=== PATIENT | male | born 1955 | race Caucasian/White ===

== ENCOUNTER 2016-08-28 10:28 | Emergency (ER) | payer OTHER ==
[2016-08-28] MEDS ORDERED: SODIUM CHLORIDE 0.9% 1,000 ML IV STA (11:29)
--- NOTE | 2016-08-28 11:43 | ED ---
General Adult HPI - General Chief complaint: Back Pain/Injury Stated complaint: back pain,weakness Time Seen by Provider: 08/28/16 11:09 Source: patient, RN notes reviewed, old records reviewed Mode of arrival: ambulatory Limitations: no limitations - History of Present Illness Initial comments: This is a 59-year-old male here for evaluation of back pain. Patient coming in the year with nontraumatic back pain, symptoms on and off for about 3 weeks now , mild nausea no vomiting no loss of bowel or bladder., Patient has no trauma to the area no fevers denies IV drug abuse. Patient does have history of ulcerative colitis and takes no medications. Patient states his back pain is worse when he wakes up in the morning, maybe a little better when he is leaning forward, he also complains of mild weakness to his anterior legs and thighs. No other complaints no rash - Related Data Home Medications Medication Instructions Recorded Confirmed Cholecalciferol [Vitamin D3] 2,000 unit PO DAILY 06/22/16 08/28/16 Ubidecarenone [Co Q-10] 100 mg PO DAILY 08/28/16 08/28/16 Allergies Allergy/AdvReac Type Severity Reaction Status Date / Time erythromycin base AdvReac Severe Nausea, Verified 08/28/16 11:38 Flare up of colitis with blood in stool amoxicillin [From Augmentin] AdvReac Flare up Verified 08/28/16 11:38 of colitis-with blood in stool clavulanic acid AdvReac Flare up Verified 08/28/16 11:38 [From Augmentin] of colitis-with blood in stool NSAIDS (Non-Steroidal AdvReac Flare up Verified 08/28/16 11:38 Anti-Inflamma of colitis-with blood in stool Review of Systems ROS Statement: Those systems with pertinent positive or pertinent negative responses have been documented in the HPI. ROS Other: All systems not noted in ROS Statement are negative. Past Medical History Past Medical History: Asthma, GERD/Reflux Additional Past Medical History / Comment(s): HX OF SHINGLES 2014 , ULCERATIVE PROCTITIS, DIVERTICULOSIS, MIGRAINES., COLITIS AND HE HAS BEEN HAVING BLOOD IN HIS STOOLS. History of Any Multi-Drug Resistant Organisms: None Reported Past Surgical History: Hernia Repair, Orthopedic Surgery Additional Past Surgical History / Comment(s): LEFT KNEE SURGERY LIGAMENT REPAIR , DESTIN ING HERNIAS, COLONOSCOPY'S , BONE SPUR REMOVED FROM RT GREAT TOE, LT ARM MUCSLE BX. COLONOSCOPY Past Anesthesia/Blood Transfusion Reactions: Postoperative Nausea & Vomiting ( PONV) Past Psychological History: No Psychological Hx Reported Smoking Status: Former smoker Past Alcohol Use History: None Reported Additional Past Alcohol Use History / Comment(s): smoked x 30years, quit 1999. Past Drug Use History: None Reported - Past Family History Brother(s) Family Medical History: Cancer Additional Family Medical History / Comment(s): SKIN & PROSTATE CANCER. Father Family Medical History: Dementia Additional Family Medical History / Comment(s): ALZHEIMERS Mother Family Medical History: Congestive Heart Failure (CHF) General Exam - General Exam Comments Initial Comments: No focal neurological deficit, no rash, no vertebral tenderness Limitations: no limitations General appearance: alert, in no apparent distress Head exam: Present: atraumatic, normocephalic, normal inspection Eye exam: Present: normal appearance, PERRL, EOMI. Absent: scleral icterus, conjunctival injection, periorbital swelling ENT exam: Present: normal exam, mucous membranes moist Neck exam: Present: normal inspection. Absent: tenderness, meningismus, lymphadenopathy Respiratory exam: Present: normal lung sounds bilaterally. Absent: respiratory distress, wheezes, rales, rhonchi, stridor Cardiovascular Exam: Present: regular rate, normal rhythm, normal heart sounds. Absent: systolic murmur, diastolic murmur, rubs, gallop, clicks GI/Abdominal exam: Present: soft, normal bowel sounds. Absent: distended, tenderness, guarding, rebound, rigid Extremities exam: Present: normal inspection, full ROM, normal capillary refill. Absent: tenderness, pedal edema, joint swelling, calf tenderness Back exam: Present: normal inspection Neurological exam: Present: alert, oriented X3, CN II-XII intact Psychiatric exam: Present: normal affect, normal mood Skin exam: Present: warm, dry, intact, normal color. Absent: rash Course Vital Signs 08/28/16 11:04 Temperature 98.3 F Pulse Rate 104 H Respiratory 18 Rate Blood Pressure 117/80 O2 Sat by Pulse 95 Oximetry - Reevaluation(s) Reevaluation #1: 08/28/16 13:10 Patient's able to ambulate without any difficulty EKG Findings - EKG Comments: EKG Findings:: EKG shows sinus rhythm rate of 87, OK 180, QRS 80, QTC 423 Medical Decision Making - Medical Decision Making 61 male the ER for evaluation of back pain. His back pain going on for about 3 weeks now, episodic with bilateral thigh weakness. No structural issue frown, no infectious suspicion, patient will follow-up with neurology for further intervention - Lab Data Result diagrams: 08/28/16 11:50 08/28/16 11:50 Lab Results 08/28/16 08/28/16 08/28/16 Range/Units 11:35 11:50 11:50 WBC (3.8-10.6) k/uL RBC (4.30-5.90) m/uL Hgb (13.0-17.5) gm/dL Hct (39.0-53.0) % MCV (80.0-100.0) fL MCH (25.0-35.0) pg MCHC (31.0-37.0) g/dL RDW (11.5-15.5) % Plt Count (150-450) k/uL Neutrophils % % Lymphocytes % % Monocytes % % Eosinophils % % Basophils % % Neutrophils # (1.3-7.7) k/uL Lymphocytes # (1.0-4.8) k/uL Monocytes # (0-1.0) k/uL Eosinophils # (0-0.7) k/uL Basophils # (0-0.2) k/uL Sodium 147 H (137-145) mmol/L Potassium 4.4 (3.5-5.1) mmol/L Chloride 104 (98-107) mmol/L Carbon Dioxide 29 (22-30) mmol/L Anion Gap 14 mmol/L BUN 10 (9-20) mg/dL Creatinine 0.90 (0.66-1.25) mg/dL Est GFR (MDRD) Af Amer >60 (>60 ml/min/1.73 sqM) Est GFR (MDRD) Non-Af >60 (>60 ml/min/1.73 sqM) Glucose 101 H (74-99) mg/dL Calcium 9.8 (8.4-10.2) mg/dL Phosphorus 3.0 (2.5-4.5) mg/dL Magnesium 2.4 H (1.6-2.3) mg/dL Total Bilirubin 0.8 (0.2-1.3) mg/dL AST 22 (17-59) U/L ALT 31 (21-72) U/L Alkaline Phosphatase 84 (38-126) U/L Total Creatine Kinase 70 (55-170) U/L CK-MB (CK-2) 0.5 (0.0-2.4) ng/mL CK-MB (CK-2) Rel Index 0.7 C-Reactive Protein <5.0 (<10.0) mg/L Total Protein 8.2 (6.3-8.2) g/dL Albumin 4.7 (3.5-5.0) g/dL Urine Color Yellow Urine Appearance Clear (Clear) Urine pH 6.0 (5.0-8.0) Ur Specific [place] 1.019 (1.001-1.035) Urine Protein Trace H (Negative) Urine Glucose (UA) Negative (Negative) Urine Ketones Negative (Negative) Urine Blood Negative (Negative) Urine Nitrate Negative (Negative) Urine Bilirubin Negative (Negative) Urine Urobilinogen 2.0 (<2.0) mg/dL Ur Leukocyte Esterase Negative (Negative) 08/28/16 Range/Units 11:50 WBC 7.3 (3.8-10.6) k/uL RBC 5.92 H (4.30-5.90) m/uL Hgb 18.6 H (13.0-17.5) gm/dL Hct 56.1 H (39.0-53.0) % MCV 94.8 (80.0-100.0) fL MCH 31.4 (25.0-35.0) pg MCHC 33.1 (31.0-37.0) g/dL RDW 12.4 (11.5-15.5) % Plt Count 222 (150-450) k/uL Neutrophils % 80 % Lymphocytes % 12 % Monocytes % 5 % Eosinophils % 1 % Basophils % 0 % Neutrophils # 5.8 (1.3-7.7) k/uL Lymphocytes # 0.9 L (1.0-4.8) k/uL Monocytes # 0.4 (0-1.0) k/uL Eosinophils # 0.1 (0-0.7) k/uL Basophils # 0.0 (0-0.2) k/uL Sodium (137-145) mmol/L Potassium (3.5-5.1) mmol/L Chloride (98-107) mmol/L Carbon Dioxide (22-30) mmol/L Anion Gap mmol/L BUN (9-20) mg/dL Creatinine (0.66-1.25) mg/dL Est GFR (MDRD) Af Amer (>60 ml/min/1.73 sqM) Est GFR (MDRD) Non-Af (>60 ml/min/1.73 sqM) Glucose (74-99) mg/dL Calcium (8.4-10.2) mg/dL Phosphorus (2.5-4.5) mg/dL Magnesium (1.6-2.3) mg/dL Total Bilirubin (0.2-1.3) mg/dL AST (17-59) U/L ALT (21-72) U/L Alkaline Phosphatase (38-126) U/L Total Creatine Kinase (55-170) U/L CK-MB (CK-2) (0.0-2.4) ng/mL CK-MB (CK-2) Rel Index C-Reactive Protein (<10.0) mg/L Total Protein (6.3-8.2) g/dL Albumin (3.5-5.0) g/dL Urine Color Urine Appearance (Clear) Urine pH (5.0-8.0) Ur Specific [place] (1.001-1.035) Urine Protein (Negative) Urine Glucose (UA) (Negative) Urine Ketones (Negative) Urine Blood (Negative) Urine Nitrate (Negative) Urine Bilirubin (Negative) Urine Urobilinogen (<2.0) mg/dL Ur Leukocyte Esterase (Negative) - Radiology Data Radiology results: report reviewed (CT lumbar sacrum is negative for acute disease, mild disc prolapse no impingement), image reviewed Disposition Clinical Impression: Lumbar radiculopathy, Mid back pain Disposition: HOME SELF-CARE Condition: Good Instructions: Acute Low Back Pain (ED), Lumbar Radiculopathy (ED) Referrals: Brandi Nelson MD [Primary Care Provider] - 1-2 days Ian Gutierrez MD [STAFF PHYSICIAN] - 1-2 days
[2016-08-28 12:09] LABS: Appearance,Urine Clear (Clear); Bilirubin,Urine Negative (Negative); Glucose,Urine (UA) Negative (Negative); Ketones,Urine Negative (Negative); Leukocyte Esterase,Urine Negative (Negative); Nitrite,Urine Negative (Negative); Protein,Urine Trace (Negative); Specific Gravity,Urine 1.019 (1.001-1.035); UA Billing (MACRO vs. MICRO) CHEM
[2016-08-28 12:14] LABS: Basophils % (A) 0 %; CH 31.9; CHCM 33.8; Eosinophils # (A) 0.1 k/uL (0-0.7); Eosinophils % (A) 1 %; HCT 56.1 % (39.0-53.0); HGB 18.6 gm/dL (13.0-17.5); Luc # (Auto) 0.11; Luc % (Auto) 2; Lymphocytes # (A) 0.9 k/uL (1.0-4.8); Lymphocytes % (A) 12 %; MCH 31.4 pg (25.0-35.0); MCHC 33.1 g/dL (31.0-37.0); MCV 94.8 fL (80.0-100.0); Mean Platelet Volume 7.7; Monocytes # (A) 0.4 k/uL (0-1.0); Monocytes % (A) 5 %; Neutrophils # (A) 5.8 k/uL (1.3-7.7); Neutrophils % (A) 80 %; RBC 5.92 m/uL (4.30-5.90); RDW 12.4 % (11.5-15.5); WBC 7.3 k/uL (3.8-10.6); WBC (Perox) 7.87
[2016-08-28 12:27] LABS: ALT 31 U/L (21-72); AST 22 U/L (17-59); Alkaline Phosphatase 84 U/L (38-126); Anion Gap 14 mmol/L; Blood Urea Nitrogen 10 mg/dL (9-20); C Reactive Protein <5.0 mg/L (<10.0); Calcium 9.8 mg/dL (8.4-10.2); Carbon Dioxide 29 mmol/L (22-30); Chloride 104 mmol/L (98-107); Glucose 101 mg/dL (74-99); Magnesium 2.4 mg/dL (1.6-2.3); Non-African American GFR(MDRD) >60 (>60 ml/min/1.73 sqM); Potassium 4.4 mmol/L (3.5-5.1); Sodium 147 mmol/L (137-145); Total Bilirubin 0.8 mg/dL (0.2-1.3); Total Protein 8.2 g/dL (6.3-8.2)
--- NOTE | 2016-08-28 12:32 | CT ---
EXAMINATION TYPE: CT lumbar spine wo con, CT sacrum wo con DATE OF EXAM: 08/28/2016 12:22 PM COMPARISON: NONE TECHNIQUE: CT scan of the lumbar spine and sacrum are both performed without contrast, axial images a re obtained, coronal and sagittal reformatted images are reviewed. HISTORY: Low back and sacral pain and leg weakness. No known injury. CT DLP: 871 mGycm Automated exposure control for dose reduction was used. FINDINGS: There are 5 lumbar type vertebra identified. Lumbar spine shows satisfactory alignment without eviden ce of acute fracture or dislocation. Vertebral body heights and disc space heights are maintained. Sp inal canal is fairly well preserved on sagittal images. There is mild anterior spurring most prominen t superior anterior L2 endplate. Axial images at the L3-L4 level show mild broad disc bulge mildly effacing anterior thecal sac and mi ld facet degenerative changes bilaterally on axial image 57. Axial images at L4-L5 level show mild broad disc bulge and mild to moderate facet degenerative change s bilaterally. There is mild effacement anterior thecal sac on axial image 68. Axial images at L5-S1 level show moderate facet degenerative changes bilaterally. Spinal canal is pre served. Bilateral neural foramina are patent. There is partial visualization of normal-appearing appendix. There is partial visualization of sigmoi d colonic diverticula. Sacrum and coccyx are intact. No acute fracture or or dislocation is seen. There is possibly remote trauma with slight posterior subluxation of coccyx and sacrum on sagittal images without evidence of acute fracture. Sacroiliac joints are symmetric with mild bilateral spurring but no suspicious wideni ng. Visualized portion of Pubic symphysis is maintained. Prostate gland is heterogeneous in appearanc e and slightly prominent in size with central zone calcifications, underlying BPH may be present, cli nical correlation advised. There are some scattered pelvic phleboliths noted. IMPRESSION: NO ACUTE FRACTURE OR DISLOCATION IN LUMBAR SPINE OR SACRUM IS IDENTIFIED. OTHER FINDINGS NOTED ABO VE.
[2016-08-28 12:47] LABS: Creatine Kinase MB 0.5 ng/mL (0.0-2.4)
[2016-08-28 13:24] VITALS: BP 128/72; PULSE 78; RESP 20; TEMP 98
== END 2016-08-28 13:22 | disposition home or self-care (01) ==
LOC: EC 10:28
DX: M54.16 Radiculopathy, lumbar region (principal); M54.9 Dorsalgia, unspecified; J45.909 Unspecified asthma, uncomplicated; K51.90 Ulcerative colitis, unspecified, without complications; K21.9 Gastro-esophageal reflux disease without esophagitis; Z88.0 Allergy status to penicillin; Z88.1 Allergy status to other antibiotic agents; Z88.6 Allergy status to analgesic agent; Z79.899 Other long term (current) drug therapy; Z87.891 Personal history of nicotine dependence
CPT/HCPCS: 36415; 72131; 72192; 80053; 81003; 82550; 82553; 83735; 84100; 85025; 86140; 87086; 93005; 96360; 99284

== ENCOUNTER → 2016-08-31 | Outpatient (CLI) | payer OTHER ==
[2016-08-31 10:58] LABS: Magnesium 2.3 mg/dL (1.6-2.3)
[2016-08-31 13:01] LABS: Hemoglobin A1C 5.3 % (4.2-6.1)
== END | disposition home or self-care (01) ==
LOC: LABWHC1 08:30
PROVIDERS: ATTEND Psychiatry & Neurology Neurology
DX: G62.9 Polyneuropathy, unspecified (principal)
CPT/HCPCS: 36415; 82306; 82607; 82947; 83036; 83735; 84295; 84439; 84443

== ENCOUNTER 2016-10-09 09:11 | Emergency (ER) | payer OTHER ==
[2016-10-09] MEDS ORDERED: RX INFO: IV CONTRAST WAS GIVEN 1 EACH MISC MISCELLANE PRN (09:52)
[2016-10-09] MEDS ORDERED: SODIUM CHLORIDE 0.9% 1,000 ML IV STA ×2 (09:52)
--- NOTE | 2016-10-09 09:58 | ED ---
General Adult HPI <Denilson Foley - Last Filed: 10/09/16 12:31> - General Source: patient, RN notes reviewed Mode of arrival: ambulatory Limitations: no limitations <Eric Mcclain - Last Filed: 10/09/16 12:51> - General Chief complaint: Abdominal Pain Stated complaint: abd pain,fever Time Seen by Provider: 10/09/16 09:44 - History of Present Illness Initial comments: Patient 61-year-old male with significant past medical history for ulcerative colitis, who presents emergency room today with a chief complaint of abdominal pain on and off over the last 2 weeks. He does admit that seems to be getting worse. Does admit pain constant in the lower middle of his abdomen. He states at times having pain to both left and right sides. Patient states feels different than his typical ulcerative colitis. He does admit that he's had some loose stools but does have bouts of constipation with his ulcerative colitis. Patient denies any other complaints or symptoms. Patient denies any recent fever, chills, shortness of breath, chest pain, back pain, numbness or tingling, dysuria or hematuria, headaches or visual changes, or any other complaints. (Eric Mcclain) - Related Data Home Medications Medication Instructions Recorded Confirmed Colocort 1 applic RECTAL DAILY 10/09/16 10/09/16 Allergies Allergy/AdvReac Type Severity Reaction Status Date / Time erythromycin base AdvReac Severe Nausea, Verified 10/09/16 09:37 Flare up of colitis with blood in stool amoxicillin [From Augmentin] AdvReac Flare up Verified 10/09/16 09:37 of colitis-with blood in stool clavulanic acid AdvReac Flare up Verified 10/09/16 09:37 [From Augmentin] of colitis-with blood in stool NSAIDS (Non-Steroidal AdvReac Flare up Verified 10/09/16 09:37 Anti-Inflamma of colitis-with blood in stool Review of Systems ROS Other: All systems not noted in ROS Statement are negative. <Denilson Foley - Last Filed: 10/09/16 12:31> ROS Other: All systems not noted in ROS Statement are negative. <Eric Mcclain - Last Filed: 10/09/16 12:51> ROS Statement: Those systems with pertinent positive or pertinent negative responses have been documented in the HPI. Past Medical History Past Medical History: Asthma, GERD/Reflux Additional Past Medical History / Comment(s): HX OF SHINGLES 2014 , ULCERATIVE PROCTITIS, DIVERTICULOSIS, MIGRAINES., COLITIS AND HE HAS BEEN HAVING BLOOD IN HIS STOOLS. History of Any Multi-Drug Resistant Organisms: None Reported Past Surgical History: Hernia Repair, Orthopedic Surgery Additional Past Surgical History / Comment(s): LEFT KNEE SURGERY LIGAMENT REPAIR , DESTIN ING HERNIAS, COLONOSCOPY'S , BONE SPUR REMOVED FROM RT GREAT TOE, LT ARM MUCSLE BX. COLONOSCOPY Past Anesthesia/Blood Transfusion Reactions: Postoperative Nausea & Vomiting ( PONV) Past Psychological History: No Psychological Hx Reported Smoking Status: Former smoker Past Alcohol Use History: None Reported Additional Past Alcohol Use History / Comment(s): smoked x 30years, quit 1999. Past Drug Use History: None Reported - Past Family History Brother(s) Family Medical History: Cancer Additional Family Medical History / Comment(s): SKIN & PROSTATE CANCER. Father Family Medical History: Dementia Additional Family Medical History / Comment(s): ALZHEIMERS Mother Family Medical History: Congestive Heart Failure (CHF) <Eric Mcclain - Last Filed: 10/09/16 12:51> General Exam <Denilson Foley - Last Filed: 10/09/16 12:31> Limitations: no limitations <Eric Mcclain - Last Filed: 10/09/16 12:51> - General Exam Comments Initial Comments: General: The patient is awake and alert, in no distress, and does not appear acutely ill. Eye: Pupils are equal, round and reactive to light, extra-ocular movements are intact. No nystagmus. There is normal conjunctiva bilaterally. No signs of icterus. Ears, nose, mouth and throat: There are moist mucous membranes and no oral lesions. Neck: The neck is supple, there is no tenderness or JVD. Cardiovascular: There is a regular rate and rhythm. No murmur, rub or gallop is appreciated. Respiratory: Lungs are clear to auscultation, respirations are non-labored, breath sounds are equal. No wheezes, stridor, rales, or rhonchi. Gastrointestinal: Normal appearance then. Normal bowel sounds. Abdomen soft on palpation. Patient does have tenderness midline in the lower abdomen. No rebound tenderness. No guarding. No CVA tenderness. Musculoskeletal: Normal ROM, no tenderness. Strength 5/5. Sensation intact. Pulses equal bilaterally 2+. Neurological: A&O x 3. CN II-XII intact, There are no obvious motor or sensory deficits. Coordination appears grossly intact. Speech is normal. Skin: Skin is warm and dry and no rashes or lesions are noted. Psychiatric: Cooperative, appropriate mood & affect, normal judgment. (Eric Mcclain) Course <Denilson Foley - Last Filed: 10/09/16 12:31> <Eric Mcclain - Last Filed: 10/09/16 12:51> Vital Signs 10/09/16 10/09/16 09:15 12:11 Temperature 99.4 F 97.7 F Pulse Rate 108 H 902 H Respiratory 20 18 Rate Blood Pressure 119/70 133/72 O2 Sat by Pulse 98 906 H Oximetry - Reevaluation(s) Reevaluation #1: 10/09/16 12:31 Patient reevaluated by myself, Dr. Foley. Patient has mild suprapubic tenderness. Patient updated on results. Case was discussed in detail with Dr. Goins. He states the patient is comfortable with this he will follow-up with him in the office at 5:30 today. Otherwise please contact him back. (Denilson Foley ) Medical Decision Making - Lab Data Result diagrams: 10/09/16 09:43 10/09/16 09:43 <Denilson Foley - Last Filed: 10/09/16 12:31> - Lab Data Result diagrams: 10/09/16 09:43 10/09/16 09:43 <Eric Mcclain - Last Filed: 10/09/16 12:51> - Medical Decision Making Case was discussed with attending physician Dr. Foley who did discuss case with Dr. Figueroa who states he will be able to see the patient at 5:30 this afternoon or patient feels comfortable being discharged. Patient states feels comfortable with this plan. Will be discharged advised to see GI specialist this afternoon. (Eric Mcclain) - Lab Data Lab Results 10/09/16 10/09/16 10/09/16 Range/Units 09:43 09:43 11:49 WBC 6.3 (3.8-10.6) k/uL RBC 4.82 (4.30-5.90) m/uL Hgb 15.1 D (13.0-17.5) gm/dL Hct 45.8 (39.0-53.0) % MCV 95.1 (80.0-100.0) fL MCH 31.3 (25.0-35.0) pg MCHC 32.9 (31.0-37.0) g/dL RDW 13.3 (11.5-15.5) % Plt Count 213 (150-450) k/uL Neutrophils % 71 % Lymphocytes % 14 % Monocytes % 7 % Eosinophils % 5 % Basophils % 1 % Neutrophils # 4.5 (1.3-7.7) k/uL Lymphocytes # 0.9 L (1.0-4.8) k/uL Monocytes # 0.4 (0-1.0) k/uL Eosinophils # 0.3 (0-0.7) k/uL Basophils # 0.0 (0-0.2) k/uL Sodium 140 (137-145) mmol/L Potassium 3.9 (3.5-5.1) mmol/L Chloride 105 (98-107) mmol/L Carbon Dioxide 24 (22-30) mmol/L Anion Gap 11 mmol/L BUN 10 (9-20) mg/dL Creatinine 0.88 (0.66-1.25) mg/dL Est GFR (MDRD) Af Amer >60 (>60 ml/min/1.73 sqM) Est GFR (MDRD) Non-Af >60 (>60 ml/min/1.73 sqM) Glucose 137 H (74-99) mg/dL Calcium 9.0 (8.4-10.2) mg/dL Total Bilirubin 0.8 (0.2-1.3) mg/dL AST 13 L (17-59) U/L ALT 23 (21-72) U/L Alkaline Phosphatase 59 (38-126) U/L Total Protein 6.1 L (6.3-8.2) g/dL Albumin 3.4 L (3.5-5.0) g/dL Amylase 38 (30-110) U/L Lipase 64 (23-300) U/L Urine Color Yellow Urine Appearance Clear (Clear) Urine pH 7.0 (5.0-8.0) Ur Specific [place] 1.006 (1.001-1.035) Urine Protein Negative (Negative) Urine Glucose (UA) Negative (Negative) Urine Ketones Negative (Negative) Urine Blood Negative (Negative) Urine Nitrite Negative (Negative) Urine Bilirubin Negative (Negative) Urine Urobilinogen <2.0 (<2.0) mg/dL Ur Leukocyte Esterase Negative (Negative) Disposition <OgDenilson - Last Filed: 10/09/16 12:31> Time of Disposition: 12:50 <Eric Mcclain - Last Filed: 10/09/16 12:51> Clinical Impression: Colitis Disposition: HOME SELF-CARE Condition: Stable Instructions: Colitis (ED) Additional Instructions: Please follow-up Dr Macias this afternoon at 5:30. Please call the office confirm appointment. Please return to emergency room for any other concerns. Referrals: Brandi Nelson MD [Primary Care Provider] - 1-2 days Lance Macias MD [STAFF PHYSICIAN] - 1-2 days
--- NOTE | 2016-10-09 10:27 | XR ---
Abdomen HISTORY: Mid abdomen pain Frontal view of the abdomen submitted on 2 images, correlation to prior exam dated 07 May 2016 Lung bases are clear. There is no bowel obstruction or pneumoperitoneum. Air-fluid levels are present without bowel distention. There are probable vascular calcifications within the pelvis. IMPRESSION: Findings may represent ileus or enteritis, follow-up as indicated.
[2016-10-09 10:30] LABS: ALT 23 U/L (21-72); AST 13 U/L (17-59); Alkaline Phosphatase 59 U/L (38-126); Amylase 38 U/L (30-110); Anion Gap 11 mmol/L; Blood Urea Nitrogen 10 mg/dL (9-20); Carbon Dioxide 24 mmol/L (22-30); Chloride 105 mmol/L (98-107); Glucose 137 mg/dL (74-99); Non-African American GFR(MDRD) >60 (>60 ml/min/1.73 sqM); Potassium 3.9 mmol/L (3.5-5.1); Sodium 140 mmol/L (137-145); Total Bilirubin 0.8 mg/dL (0.2-1.3); Total Protein 6.1 g/dL (6.3-8.2)
[2016-10-09 10:38] LABS: Basophils % (A) 1 %; CH 31.9; CHCM 33.7; Eosinophils # (A) 0.3 k/uL (0-0.7); Eosinophils % (A) 5 %; HCT 45.8 % (39.0-53.0); HDW 2.41; Luc # (Auto) 0.17; Luc % (Auto) 3; Lymphocytes # (A) 0.9 k/uL (1.0-4.8); Lymphocytes % (A) 14 %; MCH 31.3 pg (25.0-35.0); MCHC 32.9 g/dL (31.0-37.0); MCV 95.1 fL (80.0-100.0); Mean Platelet Volume 7.5; Monocytes # (A) 0.4 k/uL (0-1.0); Monocytes % (A) 7 %; Neutrophils # (A) 4.5 k/uL (1.3-7.7); Neutrophils % (A) 71 %; RBC 4.82 m/uL (4.30-5.90); RDW 13.3 % (11.5-15.5); WBC 6.3 k/uL (3.8-10.6); WBC (Perox) 6.48
[2016-10-09 10:42] LABS: HGB 15.1 gm/dL (13.0-17.5)
--- NOTE | 2016-10-09 11:42 | CT ---
EXAMINATION TYPE: CT abdomen pelvis w con DATE OF EXAM: 10/09/2016 11:30 AM COMPARISON: NONE HISTORY: generalized pain. history of ulcerative colitis CT DLP: 1523 mGycm Automated exposure control for dose reduction was used. CONTRAST: CT scan of the abdomen pelvis is performed with IV Contrast, patient injected with 100 mL of Omnipaqu e 300. FINDINGS- LUNG BASES-subsegmental changes at the lung bases greater on the right are noted with evidence of ple ural thickening next line LIVER/GB- No gross abnormality is appreciated. PANCREAS- No gross abnormality is seen. SPLEEN- No gross abnormality is seen. ADRENALS- No gross abnormality is seen. KIDNEYS/BLADDER- no hydronephrosis nephrolithiasis or renal mass. BOWEL-marked bowel wall thickening involving the sigmoid colon compatible with colitis. There are als o changes of diverticulosis. Appendix has a normal appearance. Stomach assessment limited due to incomplete distention. LYMPH NODES- No greater than 1cm abdominal or pelvic lymph nodes areappreciated. OSSEOUS STRUCTURES-no hypertrophic change of the spine.. OTHER- aorta of normal caliber. IMPRESSION- 1. Marked thickening of the wall the sigmoid colon. Correlate for colitis. Inflammatory bowel disease and infectious etiology is most likely. Ischemic colitis or mucosal lesion although not excluded, is felt less likely. 2. Diverticulosis of the colon
[2016-10-09] MEDS ORDERED: metroNIDAZOLE-NS PMX 500 MG in SALINE 1 100ML.BAG IVPB STA (11:56)
[2016-10-09] MEDS ORDERED: LEVOFLOXACIN 750MG-D5W PMX 750 MG in DEXTROSE/WATER 1 150ML.BAG IVPB STA (11:56)
[2016-10-09 12:08] LABS: Appearance,Urine Clear (Clear); Bilirubin,Urine Negative (Negative); Glucose,Urine (UA) Negative (Negative); Ketones,Urine Negative (Negative); Leukocyte Esterase,Urine Negative (Negative); Nitrite,Urine Negative (Negative); Protein,Urine Negative (Negative); Specific Gravity,Urine 1.006 (1.001-1.035); UA Billing (MACRO vs. MICRO) CHEM; Urobilinogen,Urine <2.0 mg/dL (<2.0)
[2016-10-09 12:15] VITALS: RESP 18; TEMP 97.7
[2016-10-09 13:01] VITALS: BP 128/72; PULSE 88
== END 2016-10-09 13:01 | disposition home or self-care (01) ==
LOC: EC 09:11
DX: K52.9 Noninfective gastroenteritis and colitis, unspecified (principal); Z87.891 Personal history of nicotine dependence; Z98.890 Other specified postprocedural states; Z79.52 Long term (current) use of systemic steroids; Z88.0 Allergy status to penicillin; Z88.1 Allergy status to other antibiotic agents; Z88.6 Allergy status to analgesic agent; Z53.20 Procedure and treatment not carried out because of patient's decision for unspecified reasons
CPT/HCPCS: 99284 ×2; 96360 ×2; 36415; 80053; 82150; 83690; 85025; 81003; 74000; 74177; Q9967

== ENCOUNTER → 2016-12-12 | Outpatient (CLI) | payer OTHER ==
[2016-12-12 17:32] LABS: CH 31.3; CHCM 32.4; HCT 44.2 % (39.0-53.0); HDW 2.29; HGB 14.4 gm/dL (13.0-17.5); MCH 31.6 pg (25.0-35.0); MCHC 32.6 g/dL (31.0-37.0); MCV 97.2 fL (80.0-100.0); Mean Platelet Volume 7.3; RBC 4.54 m/uL (4.30-5.90); WBC 5.6 k/uL (3.8-10.6)
[2016-12-12 18:02] LABS: ALT 26 U/L (21-72); AST 21 U/L (17-59); Alkaline Phosphatase 57 U/L (38-126); Anion Gap 10 mmol/L; Blood Urea Nitrogen 12 mg/dL (9-20); C Reactive Protein <5.0 mg/L (<10.0); Calcium 9.2 mg/dL (8.4-10.2); Carbon Dioxide 26 mmol/L (22-30); Chloride 108 mmol/L (98-107); Glucose 70 mg/dL (74-99); Non-African American GFR(MDRD) >60 (>60 ml/min/1.73 sqM); Potassium 4.4 mmol/L (3.5-5.1); Sodium 144 mmol/L (137-145); Total Bilirubin 0.3 mg/dL (0.2-1.3); Total Protein 6.6 g/dL (6.3-8.2)
[2016-12-12 19:52] LABS: Erythrocyte Sedimentation Rate 6 mm/hr (0-15)
== END ==
LOC: LABWHC1 17:07
DX: K51.30 Ulcerative (chronic) rectosigmoiditis without complications (principal)
CPT/HCPCS: 36415; 80053; 85027; 85652; 86140

== ENCOUNTER 2017-01-18 12:27 | Emergency (ER) | payer OTHER ==
[2017-01-18 12:36] VITALS: RESP 18
--- NOTE | 2017-01-18 13:05 | ED ---
General Adult HPI - General Chief complaint: Allergic Reaction Stated complaint: Poss Allergic Reaction Time Seen by Provider: 01/18/17 12:54 Source: patient, RN notes reviewed Mode of arrival: ambulatory Limitations: no limitations - History of Present Illness Initial comments: Patient is a pleasant 61-year-old male presenting to the emergency department with lightheadedness. Patient did start chlorhexedine mouth rinse prior to onset of symptoms for a tooth infection. Patient was told he will need a root canal. Patient has only uses 3 times, last was yesterday morning. Patient still has lightheadedness that is somewhat intermittent and mild. Patient denies spinning type sensation. Patient denies being off balance. No weakness or confusion. No history of similar symptoms previously. - Related Data Home Medications Medication Instructions Recorded Confirmed Chlorhexidine Gluconate [Periogard] 15 ml PO BID 01/18/17 01/18/17 Cholecalciferol (Vitamin D3) 2,000 unit PO DAILY 01/18/17 01/18/17 [Vitamin D3] Docusate [Colace] 300 mg PO HS PRN 01/18/17 01/18/17 Natural Calm Powder 1 tsp PO DAILY 01/18/17 01/18/17 Ubidecarenone [Co Q-10] 100 mg PO DAILY 01/18/17 01/18/17 Vitamin B Complex 1 cap PO DAILY 01/18/17 01/18/17 Allergies Allergy/AdvReac Type Severity Reaction Status Date / Time erythromycin base AdvReac Severe Nausea, Verified 01/18/17 12:53 Flare up of colitis with blood in stool amoxicillin [From Augmentin] AdvReac Flare up Verified 01/18/17 12:53 of colitis-with blood in stool clavulanic acid AdvReac Flare up Verified 01/18/17 12:53 [From Augmentin] of colitis-with blood in stool NSAIDS (Non-Steroidal AdvReac Flare up Verified 01/18/17 12:53 Anti-Inflamma of colitis-with blood in stool Review of Systems ROS Statement: Those systems with pertinent positive or pertinent negative responses have been documented in the HPI. ROS Other: All systems not noted in ROS Statement are negative. Constitutional: Denies: fever Eyes: Denies: eye pain ENT: Denies: ear pain Respiratory: Denies: cough Cardiovascular: Denies: chest pain Endocrine: Denies: fatigue Gastrointestinal: Denies: abdominal pain Genitourinary: Denies: dysuria Musculoskeletal: Denies: back pain Skin: Denies: rash Neurological: Denies: weakness Past Medical History Past Medical History: Asthma, GERD/Reflux Additional Past Medical History / Comment(s): HX OF SHINGLES 2014 , ULCERATIVE PROCTITIS, DIVERTICULOSIS, MIGRAINES., COLITIS with blood in stools History of Any Multi-Drug Resistant Organisms: None Reported Past Surgical History: Hernia Repair, Orthopedic Surgery Additional Past Surgical History / Comment(s): LEFT KNEE SURGERY LIGAMENT REPAIR , DESTIN ING HERNIAS, COLONOSCOPY'S , BONE SPUR REMOVED FROM RT GREAT TOE, LT ARM MUCSLE BX. COLONOSCOPY Past Anesthesia/Blood Transfusion Reactions: Postoperative Nausea & Vomiting ( PONV) Past Psychological History: No Psychological Hx Reported Smoking Status: Former smoker Past Alcohol Use History: None Reported Past Drug Use History: None Reported - Past Family History Brother(s) Family Medical History: Cancer Additional Family Medical History / Comment(s): SKIN & PROSTATE CANCER. Father Family Medical History: Dementia Additional Family Medical History / Comment(s): ALZHEIMERS Mother Family Medical History: Congestive Heart Failure (CHF) General Exam Limitations: no limitations General appearance: alert, in no apparent distress Head exam: Present: atraumatic Eye exam: Present: normal appearance, PERRL ENT exam: Present: normal oropharynx, other (No evidence of erythema or swelling or obvious tooth infection on exam.) Neck exam: Present: normal inspection Respiratory exam: Present: normal lung sounds bilaterally Cardiovascular Exam: Present: regular rate, normal rhythm GI/Abdominal exam: Present: soft. Absent: tenderness Extremities exam: Present: normal inspection Neurological exam: Present: alert, oriented X3, CN II-XII intact. Absent: motor sensory deficit Expanded Speech: Present: fluid speech Cranial nerves: EOM's Intact: Normal Sensory exam: Upper Extremity Light Touch: Normal, Lower Extremity Light Touch: Normal Motor strength exam: RUE: 5, LUE: 5, RLE: 5, LLE: 5 Eye Response: (4) open spontaneously Motor Response: (6) obeys commands Verbal Response: (5) oriented Psychiatric exam: Present: normal affect, normal mood Skin exam: Present: normal color Course Vital Signs 01/18/17 01/18/17 12:29 14:44 Temperature 98.1 F 98.0 F Pulse Rate 87 84 Respiratory 18 18 Rate Blood Pressure 139/63 122/66 O2 Sat by Pulse 96 95 Oximetry Medical Decision Making - Medical Decision Making Patient reevaluated and resting comfortably at bedside. Patient updated on results and need for follow-up. - Lab Data Result diagrams: 01/18/17 13:39 01/18/17 13:39 Lab Results 01/18/17 01/18/17 01/18/17 Range/Units 13:39 13:39 13:39 WBC 7.6 (3.8-10.6) k/uL RBC 4.87 (4.30-5.90) m/uL Hgb 15.4 (13.0-17.5) gm/dL Hct 45.6 (39.0-53.0) % MCV 93.5 (80.0-100.0) fL MCH 31.6 (25.0-35.0) pg MCHC 33.8 (31.0-37.0) g/dL RDW 12.7 (11.5-15.5) % Plt Count 199 (150-450) k/uL Neutrophils % 80 % Lymphocytes % 12 % Monocytes % 4 % Eosinophils % 1 % Basophils % 0 % Neutrophils # 6.1 (1.3-7.7) k/uL Lymphocytes # 0.9 L (1.0-4.8) k/uL Monocytes # 0.3 (0-1.0) k/uL Eosinophils # 0.1 (0-0.7) k/uL Basophils # 0.0 (0-0.2) k/uL PT (9.0-12.0) sec INR (<1.1) APTT (22.0-30.0) sec Sodium 140 (137-145) mmol/L Potassium 4.9 (3.5-5.1) mmol/L Chloride 106 (98-107) mmol/L Carbon Dioxide 24 (22-30) mmol/L Anion Gap 10 mmol/L BUN 11 (9-20) mg/dL Creatinine 0.87 (0.66-1.25) mg/dL Est GFR (MDRD) Af Amer >60 (>60 ml/min/1.73 sqM) Est GFR (MDRD) Non-Af >60 (>60 ml/min/1.73 sqM) Glucose 87 (74-99) mg/dL Calcium 9.3 (8.4-10.2) mg/dL Magnesium 2.3 (1.6-2.3) mg/dL Total Bilirubin 0.6 (0.2-1.3) mg/dL AST 23 (17-59) U/L ALT 32 (21-72) U/L Alkaline Phosphatase 63 (38-126) U/L Total Creatine Kinase 89 (55-170) U/L CK-MB (CK-2) 0.6 (0.0-2.4) ng/mL CK-MB (CK-2) Rel Index 0.7 Troponin I <0.012 (0.000-0.034) ng/mL Total Protein 7.0 (6.3-8.2) g/dL Albumin 4.1 (3.5-5.0) g/dL TSH 2.130 (0.465-4.680) mIU/L Free T4 1.17 (0.78-2.19) ng/dL Free T3 pg/mL 3.6 (2.8-5.3) pg/ml Urine Color Urine Appearance (Clear) Urine pH (5.0-8.0) Ur Specific [place] (1.001-1.035) Urine Protein (Negative) Urine Glucose (UA) (Negative) Urine Ketones (Negative) Urine Blood (Negative) Urine Nitrite (Negative) Urine Bilirubin (Negative) Urine Urobilinogen (<2.0) mg/dL Ur Leukocyte Esterase (Negative) 01/18/17 01/18/17 Range/Units 13:39 14:00 WBC (3.8-10.6) k/uL RBC (4.30-5.90) m/uL Hgb (13.0-17.5) gm/dL Hct (39.0-53.0) % MCV (80.0-100.0) fL MCH (25.0-35.0) pg MCHC (31.0-37.0) g/dL RDW (11.5-15.5) % Plt Count (150-450) k/uL Neutrophils % % Lymphocytes % % Monocytes % % Eosinophils % % Basophils % % Neutrophils # (1.3-7.7) k/uL Lymphocytes # (1.0-4.8) k/uL Monocytes # (0-1.0) k/uL Eosinophils # (0-0.7) k/uL Basophils # (0-0.2) k/uL PT 11.0 (9.0-12.0) sec INR 1.1 (<1.1) APTT 25.5 (22.0-30.0) sec Sodium (137-145) mmol/L Potassium (3.5-5.1) mmol/L Chloride (98-107) mmol/L Carbon Dioxide (22-30) mmol/L Anion Gap mmol/L BUN (9-20) mg/dL Creatinine (0.66-1.25) mg/dL Est GFR (MDRD) Af Amer (>60 ml/min/1.73 sqM) Est GFR (MDRD) Non-Af (>60 ml/min/1.73 sqM) Glucose (74-99) mg/dL Calcium (8.4-10.2) mg/dL Magnesium (1.6-2.3) mg/dL Total Bilirubin (0.2-1.3) mg/dL AST (17-59) U/L ALT (21-72) U/L Alkaline Phosphatase (38-126) U/L Total Creatine Kinase (55-170) U/L CK-MB (CK-2) (0.0-2.4) ng/mL CK-MB (CK-2) Rel Index Troponin I (0.000-0.034) ng/mL Total Protein (6.3-8.2) g/dL Albumin (3.5-5.0) g/dL TSH (0.465-4.680) mIU/L Free T4 (0.78-2.19) ng/dL Free T3 pg/mL (2.8-5.3) pg/ml Urine Color Light Yellow Urine Appearance Clear (Clear) Urine pH 6.5 (5.0-8.0) Ur Specific [place] 1.008 (1.001-1.035) Urine Protein Negative (Negative) Urine Glucose (UA) Negative (Negative) Urine Ketones Negative (Negative) Urine Blood Negative (Negative) Urine Nitrite Negative (Negative) Urine Bilirubin Negative (Negative) Urine Urobilinogen <2.0 (<2.0) mg/dL Ur Leukocyte Esterase Negative (Negative) Disposition Clinical Impression: Lightheadedness Disposition: HOME SELF-CARE Condition: Stable Instructions: Lightheadedness (ED) Additional Instructions: Please follow-up with primary care physician in the next day or 2 for recheck. If symptoms continue consider neurology or ENT evaluation. Return for worsening symptoms, off balance, weakness or confusion. [id number] Antivert if needed. Please also follow-up with your dentist in the next few days. Referrals: Brandi Nelson MD [Primary Care Provider] - 1-2 days Time of Disposition: 15:00
[2017-01-18 13:51] LABS: Basophils % (A) 0 %; CH 31.6; Eosinophils # (A) 0.1 k/uL (0-0.7); Eosinophils % (A) 1 %; HCT 45.6 % (39.0-53.0); HDW 2.22; HGB 15.4 gm/dL (13.0-17.5); Luc # (Auto) 0.14; Luc % (Auto) 2; Lymphocytes # (A) 0.9 k/uL (1.0-4.8); Lymphocytes % (A) 12 %; MCH 31.6 pg (25.0-35.0); MCHC 33.8 g/dL (31.0-37.0); MCV 93.5 fL (80.0-100.0); Mean Platelet Volume 7.7; Monocytes # (A) 0.3 k/uL (0-1.0); Monocytes % (A) 4 %; Neutrophils # (A) 6.1 k/uL (1.3-7.7); Neutrophils % (A) 80 %; RBC 4.87 m/uL (4.30-5.90); RDW 12.7 % (11.5-15.5); WBC 7.6 k/uL (3.8-10.6); WBC (Perox) 7.32
[2017-01-18 14:00] LABS: ALT 32 U/L (21-72); AST 23 U/L (17-59); Alkaline Phosphatase 63 U/L (38-126); Anion Gap 10 mmol/L; Blood Urea Nitrogen 11 mg/dL (9-20); Calcium 9.3 mg/dL (8.4-10.2); Carbon Dioxide 24 mmol/L (22-30); Chloride 106 mmol/L (98-107); Glucose 87 mg/dL (74-99); Magnesium 2.3 mg/dL (1.6-2.3); Non-African American GFR(MDRD) >60 (>60 ml/min/1.73 sqM); Potassium 4.9 mmol/L (3.5-5.1); Sodium 140 mmol/L (137-145); Total Bilirubin 0.6 mg/dL (0.2-1.3)
[2017-01-18 14:11] LABS: Creatine Kinase 89 U/L (55-170); INR 1.1 (<1.1); Partial Thromboplastin Time 25.5 sec (22.0-30.0)
[2017-01-18 14:12] LABS: Appearance,Urine Clear (Clear); Bilirubin,Urine Negative (Negative); Glucose,Urine (UA) Negative (Negative); Ketones,Urine Negative (Negative); Leukocyte Esterase,Urine Negative (Negative); Nitrite,Urine Negative (Negative); PH, Urine 6.5 (5.0-8.0); Protein,Urine Negative (Negative); Specific Gravity,Urine 1.008 (1.001-1.035); UA Billing (MACRO vs. MICRO) CHEM; Urobilinogen,Urine <2.0 mg/dL (<2.0)
[2017-01-18 14:24] LABS: Creatine Kinase MB 0.6 ng/mL (0.0-2.4); Troponin I <0.012 ng/mL (0.000-0.034)
[2017-01-18 14:44] VITALS: BP 122/66; PULSE 84; TEMP 98
== END 2017-01-18 15:07 | disposition home or self-care (01) ==
LOC: EC 12:27
DX: R42 Dizziness and giddiness (principal); Z87.891 Personal history of nicotine dependence; Z79.899 Other long term (current) drug therapy; Z88.0 Allergy status to penicillin; Z88.1 Allergy status to other antibiotic agents; Z88.6 Allergy status to analgesic agent; Z86.19 Personal history of other infectious and parasitic diseases
CPT/HCPCS: 36415; 80053; 81003; 82550; 82553; 83735; 84439; 84443; 84481; 84484; 85025; 85610; 85730; 99283

== ENCOUNTER 2017-06-22 13:13 | Emergency (ER) | payer OTHER ==
[2017-06-22 13:21] VITALS: TEMP 98.3
[2017-06-22] MEDS ORDERED: MAG HYDROX/AL HYDROX/SIMETH 30 ML, HYOSCYAMINE ELIXIR 10 ML, CIMETIDINE HCL 300 MG, LID... PO STA ×4 (13:38)
[2017-06-22] MEDS ORDERED: FAMOTIDINE 20 MG/2 ML VIAL IV STA (14:17)
--- NOTE | 2017-06-22 14:19 | ED ---
General Adult HPI - General Chief complaint: Abdominal Pain Stated complaint: Abd Pain Time Seen by Provider: 06/22/17 13:26 Source: patient, RN notes reviewed Mode of arrival: ambulatory Limitations: no limitations - History of Present Illness Initial comments: Patient's a 61-year-old male who presents emergency room today with a chief complaint of epigastric pain. Patient does admit that over the last few days of symptoms have not worse. He does admit that his noticed that when he eats that shortly thereafter feels better. Patient does admit to a history of ulcerative colitis. Patient states that he did call his GI specialist this morning because he was concerned. States the pain has improved some. He denies any other complaints or symptoms at this time. Patient denies any recent fever, chills, shortness of breath, chest pain, back pain, abdominal pain , nausea or vomiting, numbness or tingling, dysuria or hematuria, constipation or diarrhea, headaches or visual changes, or any other complaints. - Related Data Home Medications Medication Instructions Recorded Confirmed Cholecalciferol (Vitamin D3) 2,000 unit PO DAILY 01/18/17 06/22/17 [Vitamin D3] Ubidecarenone [Co Q-10] 100 mg PO DAILY 01/18/17 06/22/17 Vitamin B Complex 1 cap PO DAILY 01/18/17 06/22/17 Omeprazole 20 mg PO DAILY PRN 06/22/17 06/22/17 Remicade(Unknown Dose) 1 dose IV Q14D 06/22/17 06/22/17 Allergies Allergy/AdvReac Type Severity Reaction Status Date / Time erythromycin base AdvReac Severe Nausea, Verified 06/22/17 14:12 Flare up of colitis with blood in stool amoxicillin [From Augmentin] AdvReac Flare up Verified 06/22/17 14:12 of colitis-with blood in stool clavulanic acid AdvReac Flare up Verified 06/22/17 14:12 [From Augmentin] of colitis-with blood in stool NSAIDS (Non-Steroidal AdvReac Flare up Verified 06/22/17 14:12 Anti-Inflamma of colitis-with blood in stool Review of Systems ROS Statement: Those systems with pertinent positive or pertinent negative responses have been documented in the HPI. ROS Other: All systems not noted in ROS Statement are negative. Past Medical History Past Medical History: Asthma, GERD/Reflux Additional Past Medical History / Comment(s): HX OF SHINGLES 2014 , ULCERATIVE PROCTITIS, DIVERTICULOSIS, MIGRAINES., COLITIS with blood in stools History of Any Multi-Drug Resistant Organisms: None Reported Past Surgical History: Hernia Repair, Orthopedic Surgery Additional Past Surgical History / Comment(s): LEFT KNEE SURGERY LIGAMENT REPAIR , DESTIN ING HERNIAS, COLONOSCOPY'S , BONE SPUR REMOVED FROM RT GREAT TOE, LT ARM MUCSLE BX. COLONOSCOPY Past Anesthesia/Blood Transfusion Reactions: Postoperative Nausea & Vomiting ( PONV) Past Psychological History: No Psychological Hx Reported Smoking Status: Former smoker Past Alcohol Use History: None Reported Past Drug Use History: None Reported - Past Family History Brother(s) Family Medical History: Cancer Additional Family Medical History / Comment(s): SKIN & PROSTATE CANCER. Father Family Medical History: Dementia Additional Family Medical History / Comment(s): ALZHEIMERS Mother Family Medical History: Congestive Heart Failure (CHF) General Exam - General Exam Comments Initial Comments: General: The patient is awake and alert, in no distress, and does not appear acutely ill. Eye: Pupils are equal, round and reactive to light, extra-ocular movements are intact. No nystagmus. There is normal conjunctiva bilaterally. No signs of icterus. Ears, nose, mouth and throat: There are moist mucous membranes and no oral lesions. Neck: The neck is supple, there is no tenderness or JVD. Cardiovascular: There is a regular rate and rhythm. No murmur, rub or gallop is appreciated. Respiratory: Lungs are clear to auscultation, respirations are non-labored, breath sounds are equal. No wheezes, stridor, rales, or rhonchi. Gastrointestinal: Soft, non-distended, non-tender abdomen without masses or organomegaly noted. There is no rebound or guarding present. No CVA tenderness. Bowel sounds are unremarkable. Musculoskeletal: Normal ROM, no tenderness. Strength 5/5. Sensation intact. Pulses equal bilaterally 2+. Neurological: A&O x 3. CN II-XII intact, There are no obvious motor or sensory deficits. Coordination appears grossly intact. Speech is normal. Skin: Skin is warm and dry and no rashes or lesions are noted. Psychiatric: Cooperative, appropriate mood & affect, normal judgment. Limitations: no limitations Course Vital Signs 06/22/17 13:18 Temperature 98.3 F Pulse Rate 91 Respiratory 18 Rate Blood Pressure 108/62 O2 Sat by Pulse 100 Oximetry Medical Decision Making - Medical Decision Making Patient reexamined at this time shows no signs of distress. Patient's resting comfortably. Doesn't improvement after GI cocktail emergency room. Patient's labs been reviewed. H. pylori test will not be back today. Patient will be discharged home advised continue with his omeprazole also he may use Pepcid for his symptoms. Advised return to emergency room if any symptoms increase or worsen or for any other concerns. - Lab Data Result diagrams: 06/22/17 14:30 06/22/17 14:30 Lab Results 06/22/17 06/22/17 Range/Units 14:30 14:30 WBC 7.3 (3.8-10.6) k/uL RBC 4.29 L (4.30-5.90) m/uL Hgb 12.8 L (13.0-17.5) gm/dL Hct 40.4 (39.0-53.0) % MCV 94.1 (80.0-100.0) fL MCH 29.7 (25.0-35.0) pg MCHC 31.6 (31.0-37.0) g/dL RDW 13.0 (11.5-15.5) % Plt Count 313 (150-450) k/uL Neutrophils % 72 % Lymphocytes % 16 % Monocytes % 5 % Eosinophils % 6 % Basophils % 0 % Neutrophils # 5.2 (1.3-7.7) k/uL Lymphocytes # 1.2 (1.0-4.8) k/uL Monocytes # 0.4 (0-1.0) k/uL Eosinophils # 0.4 (0-0.7) k/uL Basophils # 0.0 (0-0.2) k/uL Sodium 139 (137-145) mmol/L Potassium 4.4 (3.5-5.1) mmol/L Chloride 105 (98-107) mmol/L Carbon Dioxide 28 (22-30) mmol/L Anion Gap 6 mmol/L BUN 8 L (9-20) mg/dL Creatinine 0.98 (0.66-1.25) mg/dL Est GFR (MDRD) Af Amer >60 (>60 ml/min/1.73 sqM) Est GFR (MDRD) Non-Af >60 (>60 ml/min/1.73 sqM) Glucose 96 (74-99) mg/dL Calcium 9.1 (8.4-10.2) mg/dL Total Bilirubin 0.3 (0.2-1.3) mg/dL AST 18 (17-59) U/L ALT 28 (21-72) U/L Alkaline Phosphatase 73 (38-126) U/L Total Protein 6.2 L (6.3-8.2) g/dL Albumin 3.4 L (3.5-5.0) g/dL Amylase 45 (30-110) U/L Lipase 79 (23-300) U/L Disposition Clinical Impression: Abdominal pain Disposition: HOME SELF-CARE Condition: Good Instructions: Abdominal Pain (ED) Additional Instructions: Please use Pepcid 20 mg twice a day. Please follow-up with GI/family doctor in the next 2 days of symptoms have not improved. Please return to emergency room if the symptoms increase or worsen or for any other concerns. Referrals: Brandi Nelson MD [Primary Care Provider] - 1-2 days Lance Macias MD [STAFF PHYSICIAN] - 1-2 days Time of Disposition: 15:42
[2017-06-22 14:43] LABS: Basophils % (A) 0 %; CH 29.9; CHCM 31.9; Eosinophils # (A) 0.4 k/uL (0-0.7); Eosinophils % (A) 6 %; HCT 40.4 % (39.0-53.0); HDW 2.46; HGB 12.8 gm/dL (13.0-17.5); Luc # (Auto) 0.08; Luc % (Auto) 1; Lymphocytes # (A) 1.2 k/uL (1.0-4.8); Lymphocytes % (A) 16 %; MCH 29.7 pg (25.0-35.0); MCHC 31.6 g/dL (31.0-37.0); MCV 94.1 fL (80.0-100.0); Mean Platelet Volume 7.6; Monocytes # (A) 0.4 k/uL (0-1.0); Monocytes % (A) 5 %; Neutrophils # (A) 5.2 k/uL (1.3-7.7); Neutrophils % (A) 72 %; RBC 4.29 m/uL (4.30-5.90); WBC 7.3 k/uL (3.8-10.6); WBC (Perox) 7.53
[2017-06-22 14:51] LABS: ALT 28 U/L (21-72); AST 18 U/L (17-59); Alkaline Phosphatase 73 U/L (38-126); Amylase 45 U/L (30-110); Anion Gap 6 mmol/L; Blood Urea Nitrogen 8 mg/dL (9-20); Calcium 9.1 mg/dL (8.4-10.2); Carbon Dioxide 28 mmol/L (22-30); Chloride 105 mmol/L (98-107); Glucose 96 mg/dL (74-99); Non-African American GFR(MDRD) >60 (>60 ml/min/1.73 sqM); Potassium 4.4 mmol/L (3.5-5.1); Sodium 139 mmol/L (137-145); Total Bilirubin 0.3 mg/dL (0.2-1.3); Total Protein 6.2 g/dL (6.3-8.2)
[2017-06-22 15:54] VITALS: BP 125/66; PULSE 70; RESP 17
== END 2017-06-22 15:54 | disposition home or self-care (01) ==
LOC: EC 13:13
DX: R10.13 Epigastric pain (principal); K21.9 Gastro-esophageal reflux disease without esophagitis; Z87.891 Personal history of nicotine dependence; Z79.899 Other long term (current) drug therapy; Z88.0 Allergy status to penicillin; Z88.1 Allergy status to other antibiotic agents; Z88.6 Allergy status to analgesic agent
CPT/HCPCS: 36415; 80053; 82150; 83690; 85025; 86677; 96374; 99284

== ENCOUNTER → 2017-08-02 | Outpatient (CLI) | payer OTHER ==
--- NOTE | 2017-08-02 13:04 | CT ---
EXAMINATION TYPE: CT chest w con DATE OF EXAM: 08/02/2017 COMPARISON: 04/26/2015 HISTORY: Chest discomfort when breathing. Epigastric region. CT DLP: 763 mGycm Automated exposure control for dose reduction was used. CONTRAST: CT scan of the chest is performed with IV Contrast, patient injected with 100 mL of Omnipaque 300. FINDINGS: LUNGS: Noncalcified pleural plaques are seen bilaterally indicating asbestos related pleural disease. The lungs are free of focal distinct mass or nodule. No infiltrate, volume loss or pleural effusion. MEDIASTINUM: There are no greater than 1 cm hilar or mediastinal lymph nodes. No pericardial effusi on is seen. Thoracic aorta is of normal caliber. The heart is not enlarged. UPPER ABDOMEN: No significant abnormality appreciated. OTHER: No additional significant abnormality is seen. IMPRESSION: 1. Asbestos-related pleural disease. Otherwise unremarkable study.
== END | disposition home or self-care (01) ==
LOC: RADCTMAIN 12:25
PROVIDERS: ATTEND Nurse Practitioner Adult Health
DX: J92.0 Pleural plaque with presence of asbestos (principal)
CPT/HCPCS: 71260; Q9967

== ENCOUNTER 2017-08-23 10:29 | Day surgery (SDC) | payer OTHER ==
[2017-08-21 12:44] VITALS: BMI 26.4
[~2017-08-23 10:29] MED LIST: LACTATED RINGERS 1,000 ML IV SCH; LIDOCAINE 1% 20 ML VIAL (10MG/ML) FOR IV START INTRADERMA PRN
[2017-08-23 11:24] VITALS: RESP 16; TEMP 98.2
[2017-08-23] MEDS ORDERED: PROPOFOL 10 MG/ML 20 ML VIAL IV ONE (11:55)
--- NOTE | 2017-08-23 12:06 | P.PCN ---
Date of Procedure: 08/23/17 Procedure(s) Performed: BRIEF HISTORY: Patient is a 62-year-old, pleasant, white male, scheduled for an upper endoscopy as a part of evaluation of epigastric pain for the last 3 months duration. Pain is located in the epigastric area with no heartburn or regurgitation. He denies any nausea vomiting. His being on Prilosec 20 mg daily for 3 months with no help. His and scheduled for an upper endoscopy to evaluate further. PROCEDURE PERFORMED: Esophagogastroduodenoscopy with biopsy. PREOPERATIVE DIAGNOSIS: Epigastric pain of 3 months duration. IV sedation per anesthesia. PROCEDURE: After informed consent was obtained, the patient was brought into the endoscopy unit. IV sedation was administered by Anesthesia under continuous monitoring. Initially the Olympus GIF-140 video endoscope was inserted into the mouth. Esophagus intubated without any difficulty. It was gradually advanced into the stomach and duodenum and carefully examined. The bulb and the second part of the duodenum appeared normal. Biopsies were done from the duodenum to rule out celiac disease. The scope at this time was withdrawn to the stomach, adequately insufflated with air, and upon careful examination, mucosa of the antrum, had patchy areas of erythema and biopsies were done from this area. The body, cardia and the fundus appeared normal. The scope was then withdrawn into the esophagus. The GE junction was located at 39 cm from the incisors. The esophagus appeared normal. There were no erosions or ulcerations seen and the patient tolerated the procedure well. IMPRESSION: 1. Mild antral gastritis. 2. No evidence of esophagitis or peptic ulcer disease. RECOMMENDATIONS: The findings of this examination were discussed with the patient as well as his family. He was advised to follow with the biopsy results. He will continue with Prilosec 20 mg daily and follow antireflux measures..
[2017-08-23 12:36] VITALS: BP 115/64; PULSE 67
== END 2017-08-23 12:52 | disposition home or self-care (01) ==
LOC: ORWHC2ENDO 10:29
PROVIDERS: ATTEND Internal Medicine Gastroenterology
DX: K29.50 Unspecified chronic gastritis without bleeding (principal); K20.9 Esophagitis, unspecified; Z88.0 Allergy status to penicillin; Z88.1 Allergy status to other antibiotic agents; Z88.6 Allergy status to analgesic agent; Z79.899 Other long term (current) drug therapy
CPT/HCPCS: 43239; 88305

== ENCOUNTER 2019-10-21 06:46 | Day surgery (SDC) | payer MEDICARE ==
[~2019-10-21 06:46] MED LIST changes: +LIDOCAINE 1% (10MG/ML) FOR IV START INTRADERMA PRN; -LIDOCAINE 1% 20 ML VIAL (10MG/ML) FOR IV START INTRADERMA PRN
[2019-10-21 07:22] VITALS: TEMP 97.4
[2019-10-21] MEDS ORDERED: ONDANSETRON 4 MG/2 ML VIAL IVP ONE (07:29)
[2019-10-21] MEDS ORDERED: MIDAZOLAM 2 MG/2 ML VIAL ONE (07:43)
[2019-10-21] MEDS ORDERED: PROPOFOL 10 MG/ML 20 ML VIAL IV ONE (07:43)
[2019-10-21] MEDS ORDERED: LIDOCAINE 1% INJ 10MG/ML (20 ML MDV) ONE (07:43)
[2019-10-21] MEDS ORDERED: fentaNYL (PF) 50 MCG/ML 2 ML AMP ONE (07:43)
--- NOTE | 2019-10-21 08:24 | P.PCN ---
Date of Procedure: 10/21/19 Description of Procedure: BRIEF HISTORY: Patient is a 64-year-old male with a diagnosis of ulcerative colitis presenting for ulcerative colitis. The patient has a history of chronic ulcerative proctosigmoiditis diagnosed in 05/05. Previously treated with 5ASA agents and biologic therapy with Remicade but stopped approximately 2 years ago. He presented with complaints of blood per rectum and abdominal pain. He has been trying to treat his disease with alternative medicines. PROCEDURE PERFORMED: Colonoscopy with biopsy. PREOPERATIVE DIAGNOSIS: Chronic ulcerative proctosigmoiditis, UC. ESTIMATED BLOOD LOSS: Minimal. IV sedation per Anesthesia. PROCEDURE: After informed consent was obtained, the patient, was brought into the endoscopy unit. IV sedation was administered by Anesthesia under continuous monitoring. Digital rectal examination was normal. Initially the Olympus CF-190 flexible video colonoscope was then inserted in the rectum, gradually advanced into the cecum without any difficulty. Careful examination was performed as the scope was gradually being withdrawn. Ileocecal valve and the appendiceal orifice were visualized and appeared normal. Prep was good. Mucosa of the cecum, ascending colon, transverse colon, descending colon, sigmoid colon, and rectum was significant for moderate to severe erythema and inflammation in the left colon, more predominant in the rectum and sigmoid and extending to the distal transverse colon with random biopsies taken of the terminal ileum which appeared normal, cecum, ascending colon, transverse colon, descending colon, sigmoid colon and rectum. A few small diverticula noted in the sigmoid colon. Retr oflexion was performed in the rectum due to inflammation with no lesions noted on slow withdrawal. The patient tolerated the procedure well. IMPRESSION: Moderate to severe left colonic colitis. Mild sigmoid diverticulosis. RECOMMENDATIONS: Findings of this examination were discussed with the patient. Okay to resume diet. Okay to resume current medications. Would recommend escalation therapy with consideration for biologic therapy given disease activity. Patient should follow-up in the gastroenterology clinic in 1-2 weeks.
[2019-10-21 08:46] VITALS: BP 114/72; PULSE 92; RESP 16
[2019-10-21] MEDS ORDERED: LACTATED RINGERS 1,000 ML IV SCH (21:30)
== END 2019-10-21 09:18 | disposition home or self-care (01) ==
LOC: ORWHC2ENDO 06:46
PROVIDERS: ATTEND Internal Medicine
DX: K51.311 Ulcerative (chronic) rectosigmoiditis with rectal bleeding (principal); K51.511 Left sided colitis with rectal bleeding; K63.5 Polyp of colon; K57.30 Diverticulosis of large intestine without perforation or abscess without bleeding; Z88.0 Allergy status to penicillin; Z88.1 Allergy status to other antibiotic agents; Z88.6 Allergy status to analgesic agent; Z87.891 Personal history of nicotine dependence; Z98.890 Other specified postprocedural states
CPT/HCPCS: 45380; J2250; J2405; J2001; J3010; J2704; 88305

== ENCOUNTER 2020-03-05 09:16 | Emergency (ER) | payer MEDICARE ==
[2020-03-05 09:25] VITALS: TEMP 98.2
[2020-03-05 10:23] LABS: Basophils % (A) 1 %; Eosinophils # (A) 0.1 k/uL (0-0.7); Eosinophils % (A) 1 %; HCT 48.7 % (39.0-53.0); HGB 15.7 gm/dL (13.0-17.5); Lymphocytes # (A) 0.8 k/uL (1.0-4.8); Lymphocytes % (A) 13 %; MCH 30.3 pg (25.0-35.0); MCHC 32.3 g/dL (31.0-37.0); MCV 93.5 fL (80.0-100.0); Mean Platelet Volume 8.4; Monocytes # (A) 0.3 k/uL (0-1.0); Monocytes % (A) 5 %; Neutrophils # (A) 4.8 k/uL (1.3-7.7); Neutrophils % (A) 79 %; Platelet Count 164 k/uL (150-450); RDW 12.6 % (11.5-15.5); WBC 6.1 k/uL (3.8-10.6)
--- NOTE | 2020-03-05 10:31 | ED ---
General Adult HPI - General Chief complaint: Shortness of Breath Stated complaint: sob Time Seen by Provider: 03/05/20 09:29 Source: patient, RN notes reviewed, old records reviewed Mode of arrival: ambulatory Limitations: no limitations - History of Present Illness Initial comments: 64-year-old male history of exercise-induced asthma presenting with 3 weeks of dyspnea. Patient states this is intermittent, completely resolved at times. He does report a knot in his lower chest. Denies chest pain. Denies cough. Denies fever. Denies upper respiratory symptoms. Denies lower extremity pain or swelling. No history of DVT or PE. No history of coronary artery disease. He does follow with pulmonology regarding his asthma. He was seen by his [facility] physician about 3 weeks ago with the same symptoms. He states he had a coronavirus testing and chest x-ray at that time which were both negative. - Related Data Home Medications Medication Instructions Recorded Confirmed Cholecalciferol (Vitamin D3) 2,000 unit PO DAILY 01/18/17 03/05/20 [Vitamin D3] Ubidecarenone [Co Q-10] 100 mg PO DAILY 01/18/17 03/05/20 Vitamin B Complex 1 cap PO DAILY 01/18/17 03/05/20 Albuterol Sulfate [Ventolin HFA] 2 puff INHALATION RT-Q4H PRN 03/05/20 03/05/20 Omeprazole Magnesium [PriLOSEC OTC] 20 mg PO DAILY PRN 03/05/20 03/05/20 Previous Rx's Medication Instructions Recorded predniSONE 50 mg PO DAILY #5 tab 03/05/20 Allergies Allergy/AdvReac Type Severity Reaction Status Date / Time erythromycin base AdvReac Severe Nausea, Verified 03/05/20 11:07 Flare up of colitis with blood in stool amoxicillin [From Augmentin] AdvReac Flare up Verified 03/05/20 11:07 of colitis-with blood in stool clavulanic acid AdvReac Flare up Verified 03/05/20 11:07 [From Augmentin] of colitis-with blood in stool NSAIDS (Non-Steroidal AdvReac Flare up Verified 03/05/20 11:07 Anti-Inflamma of colitis-with blood in stool Review of Systems ROS Statement: Those systems with pertinent positive or pertinent negative responses have been documented in the HPI. ROS Other: All systems not noted in ROS Statement are negative. Past Medical History Past Medical History: Asthma, Cancer, GERD/Reflux Additional Past Medical History / Comment(s): HX OF SHINGLES 2013, exercise induced Asthma, Migraines, Basal cell cancer on nose 2019, Rosacea, DIVERTICULOSIS, COLITIS w/ blood in stools History of Any Multi-Drug Resistant Organisms: None Reported Past Surgical History: Hernia Repair, Orthopedic Surgery Additional Past Surgical History / Comment(s): LT KNEE SURGERY LIGAMENT REPAIR, DESTIN ING HERNIAS, EGD, COLONOSCOPY'S, BONE SPUR REMOVED FROM RT GREAT TOE, LT ARM MUCSLE BX. Past Anesthesia/Blood Transfusion Reactions: Postoperative Nausea & Vomiting (PONV) Additional Past Anesthesia/Blood Transfusion Reaction / Comment(s): PONV in s x1. Past Psychological History: No Psychological Hx Reported Smoking Status: Former smoker Past Alcohol Use History: None Reported Past Drug Use History: None Reported - Past Family History Brother(s) Family Medical History: Cancer Additional Family Medical History / Comment(s): SKIN & PROSTATE CANCER. Father Family Medical History: Dementia Additional Family Medical History / Comment(s): ALZHEIMERS Mother Family Medical History: Congestive Heart Failure (CHF) General Exam Limitations: no limitations General appearance: alert, in no apparent distress Head exam: Present: atraumatic, normocephalic Eye exam: Present: normal appearance, PERRL ENT exam: Present: normal exam Neck exam: Present: normal inspection. Absent: tenderness, meningismus Respiratory exam: Present: normal lung sounds bilaterally. Absent: respiratory distress, wheezes, rales, rhonchi, decreased breath sounds Cardiovascular Exam: Present: regular rate, normal rhythm GI/Abdominal exam: Present: soft. Absent: distended, tenderness, guarding, rebound Extremities exam: Present: normal inspection, normal capillary refill. Absent: pedal edema, calf tenderness Neurological exam: Present: alert, oriented X3, CN II-XII intact. Absent: motor sensory deficit Psychiatric exam: Present: normal affect, normal mood Skin exam: Present: warm, dry, intact. Absent: cyanosis, diaphoretic Course Vital Signs 03/05/20 03/05/20 03/05/20 09:22 10:00 10:30 Temperature 98.2 F Pulse Rate 92 79 78 Respiratory 20 18 18 Rate Blood Pressure 133/77 146/70 135/69 O2 Sat by Pulse 92 L 93 L 95 Oximetry EKG Findings - EKG Comments: EKG Findings:: EKG: Normal sinus rhythm, rate of 79, VA interval 176, QRS duration 80, QTC 410, no ST segment elevation. Medical Decision Making - Medical Decision Making 64-year-old male with 3 weeks of dyspnea, history of asthma. Workup in the emergency Department is initiated, chest x-ray shows concern for a 1 cm left upper lobe nodule as well as hyperinflation consistent with COPD. He has normal CBC, normal CMP, negative troponin, negative BNP. Patient does have an elevated d-dimer 0.67, CT angiography is performed which is negative for pulmonary embolism. 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 He will be prescribed a short course of steroids and will use his albuterol as needed. - Lab Data Result diagrams: 03/05/20 10:03 03/05/20 10:02 Lab Results 03/05/20 03/05/20 03/05/20 Range/Units 10:02 10:02 10:02 WBC (3.8-10.6) k/uL RBC (4.30-5.90) m/uL Hgb (13.0-17.5) gm/dL Hct (39.0-53.0) % MCV (80.0-100.0) fL MCH (25.0-35.0) pg MCHC (31.0-37.0) g/dL RDW (11.5-15.5) % Plt Count (150-450) k/uL Neutrophils % % Lymphocytes % % Monocytes % % Eosinophils % % Basophils % % Neutrophils # (1.3-7.7) k/uL Lymphocytes # (1.0-4.8) k/uL Monocytes # (0-1.0) k/uL Eosinophils # (0-0.7) k/uL Basophils # (0-0.2) k/uL PT 10.7 (9.0-12.0) sec INR 1.0 (<1.2) APTT 25.3 (22.0-30.0) sec D-Dimer 0.67 H (<0.60) mg/L FEU Sodium 139 (137-145) mmol/L Potassium 4.2 (3.5-5.1) mmol/L Chloride 108 H (98-107) mmol/L Carbon Dioxide 25 (22-30) mmol/L Anion Gap 6 mmol/L BUN 12 (9-20) mg/dL Creatinine 0.79 (0.66-1.25) mg/dL Est GFR (CKD-EPI)AfAm >90 (>60 ml/min/1.73 sqM) Est GFR (CKD-EPI)NonAf >90 (>60 ml/min/1.73 sqM) Glucose 120 H (74-99) mg/dL Plasma Lactic Acid Josh 0.8 (0.7-2.0) mmol/L Calcium 9.2 (8.4-10.2) mg/dL Magnesium 2.1 (1.6-2.3) mg/dL Total Bilirubin 0.9 (0.2-1.3) mg/dL AST 22 (17-59) U/L ALT 15 (4-49) U/L Alkaline Phosphatase 69 (38-126) U/L Troponin I (0.000-0.034) ng/mL NT-Pro-B Natriuret Pep pg/mL Total Protein 6.6 (6.3-8.2) g/dL Albumin 3.9 (3.5-5.0) g/dL 03/05/20 03/05/20 03/05/20 Range/Units 10:02 10:02 10:03 WBC 6.1 (3.8-10.6) k/uL RBC 5.20 (4.30-5.90) m/uL Hgb 15.7 (13.0-17.5) gm/dL Hct 48.7 (39.0-53.0) % MCV 93.5 (80.0-100.0) fL MCH 30.3 (25.0-35.0) pg MCHC 32.3 (31.0-37.0) g/dL RDW 12.6 (11.5-15.5) % Plt Count 164 (150-450) k/uL Neutrophils % 79 % Lymphocytes % 13 % Monocytes % 5 % Eosinophils % 1 % Basophils % 1 % Neutrophils # 4.8 (1.3-7.7) k/uL Lymphocytes # 0.8 L (1.0-4.8) k/uL Monocytes # 0.3 (0-1.0) k/uL Eosinophils # 0.1 (0-0.7) k/uL Basophils # 0.0 (0-0.2) k/uL PT (9.0-12.0) sec INR (<1.2) APTT (22.0-30.0) sec D-Dimer (<0.60) mg/L FEU Sodium (137-145) mmol/L Potassium (3.5-5.1) mmol/L Chloride (98-107) mmol/L Carbon Dioxide (22-30) mmol/L Anion Gap mmol/L BUN (9-20) mg/dL Creatinine (0.66-1.25) mg/dL Est GFR (CKD-EPI)AfAm (>60 ml/min/1.73 sqM) Est GFR (CKD-EPI)NonAf (>60 ml/min/1.73 sqM) Glucose (74-99) mg/dL Plasma Lactic Acid Josh (0.7-2.0) mmol/L Calcium (8.4-10.2) mg/dL Magnesium (1.6-2.3) mg/dL Total Bilirubin (0.2-1.3) mg/dL AST (17-59) U/L ALT (4-49) U/L Alkaline Phosphatase (38-126) U/L Troponin I <0.012 (0.000-0.034) ng/mL NT-Pro-B Natriuret Pep 97 pg/mL Total Protein (6.3-8.2) g/dL Albumin (3.5-5.0) g/dL Disposition Clinical Impression: Dyspnea, Asthma with acute exacerbation Disposition: HOME SELF-CARE Condition: Good Instructions (If sedation given, give patient instructions): Asthma (ED) Prescriptions: predniSONE 50 mg PO DAILY #5 tab Is patient prescribed a controlled substance at d/c from ED?: No Referrals: Brandi Nelson MD [Primary Care Provider] - 1-2 days Quita Elkins MD [STAFF PHYSICIAN] - 1-2 days Time of Disposition: 12:27
--- NOTE | 2020-03-05 10:34 | XR ---
EXAMINATION TYPE: XR chest 2V DATE OF EXAM: 03/05/2020 COMPARISON: 02/20/2020 TECHNIQUE: PA and lateral views submitted. HISTORY: Shortness of breath FINDINGS: Hyperinflation compatible COPD. No pleural effusion or pneumothorax. There is a 1 cm nodule in the le ft upper lobe. Pleural thickening noted. IMPRESSION: 1. There is a 1 cm nodule in the left upper lobe. Recommend CT scan of the chest. 2. COPD.
[2020-03-05 10:38] LABS: Partial Thromboplastin Time 25.3 sec (22.0-30.0); Prothrombin Time 10.7 sec (9.0-12.0)
[2020-03-05 10:45] LABS: D-Dimer 0.67 mg/L FEU (<0.60)
[2020-03-05 10:47] LABS: ALT 15 U/L (4-49); AST 22 U/L (17-59); African American GFR (CKD) >90 (>60 ml/min/1.73 sqM); Albumin 3.9 g/dL (3.5-5.0); Alkaline Phosphatase 69 U/L (38-126); Anion Gap 6 mmol/L; Blood Urea Nitrogen 12 mg/dL (9-20); Calcium 9.2 mg/dL (8.4-10.2); Carbon Dioxide 25 mmol/L (22-30); Chloride 108 mmol/L (98-107); Glucose 120 mg/dL (74-99); Magnesium 2.1 mg/dL (1.6-2.3); Non-African American GFR(CKD) >90 (>60 ml/min/1.73 sqM); Potassium 4.2 mmol/L (3.5-5.1); Sodium 139 mmol/L (137-145); Total Bilirubin 0.9 mg/dL (0.2-1.3); Total Protein 6.6 g/dL (6.3-8.2)
[2020-03-05 10:50] VITALS: RESP 18
--- NOTE | 2020-03-05 12:10 | CT ---
EXAMINATION TYPE: CT angio chest DATE OF EXAM: 03/05/2020 11:23 AM COMPARISON: CT chest 08/02/2017 HISTORY: SOB, elevated d dimer CT DLP: 479.9 mGycm Automated exposure control for dose reduction was used. CONTRAST: CTA scan of the thorax is performed with IV Contrast, patient injected with 100 mL of Isovue 370, pul monary embolism protocol. MIP images are created and reviewed. FINDINGS: LUNGS: Redemonstrated noncalcified pleural plaques of the bilateral lungs. Minimal atelectasis. No fo feliz airspace opacities, parenchymal mass, or concerning nodules. There is no pleural effusion or pneu mothorax seen. The tracheobronchial tree is patent. MEDIASTINUM: There is satisfactory enhancement of the pulmonary artery and its branches, there is no CT evidence for pulmonary embolism. There are no greater than 1 cm hilar or mediastinal lymph nodes. No thoracic aortic aneurysm Normal heart size. Calcified coronary artery disease. No pericardial ef fusion is seen. OTHER: No axillary lymphadenopathy. Visualized portions of the adrenal glands demonstrate no nodular ity. Colonic diverticulosis is seen. Degenerative changes of the spine. IMPRESSION: 1. NO EVIDENCE OF PULMONARY EMBOLISM. 2. NO EVIDENCE OF THORACIC AORTIC ANEURYSM. 3. NO ACUTE PULMONARY PROCESS. 4. ASBESTOS-RELATED PLEURAL DISEASE REDEMONSTRATED.
[2020-03-05 12:53] VITALS: BP 128/76; PULSE 68
== END 2020-03-05 12:57 | disposition home or self-care (01) ==
LOC: EC 09:16
DX: J45.901 Unspecified asthma with (acute) exacerbation (principal); R91.1 Solitary pulmonary nodule; R79.89 Other specified abnormal findings of blood chemistry; K21.9 Gastro-esophageal reflux disease without esophagitis; Z85.828 Personal history of other malignant neoplasm of skin; Z79.899 Other long term (current) drug therapy; Z87.891 Personal history of nicotine dependence; Z88.1 Allergy status to other antibiotic agents; Z88.0 Allergy status to penicillin; Z88.6 Allergy status to analgesic agent; Z79.51 Long term (current) use of inhaled steroids
CPT/HCPCS: 36415; 93005; 85379; 83880; 80053; 83605; 83735; 84484; 85025; 85610; 85730; 71046; 71275; 99285; Q9967

== ENCOUNTER → 2020-07-27 | Outpatient (CLI) | payer MEDICARE ==
[2020-07-27 14:31] LABS: HCT 48.8 % (39.0-53.0); HGB 16.4 gm/dL (13.0-17.5); MCH 32.1 pg (25.0-35.0); MCHC 33.7 g/dL (31.0-37.0); MCV 95.5 fL (80.0-100.0); Mean Platelet Volume 7.9; Platelet Count 174 k/uL (150-450); RBC 5.11 m/uL (4.30-5.90); RDW 12.5 % (11.5-15.5); WBC 5.2 k/uL (3.8-10.6)
[2020-07-27 14:42] LABS: African American GFR (CKD) >90 (>60 ml/min/1.73 sqM); Anion Gap 3 mmol/L; Blood Urea Nitrogen 13 mg/dL (9-20); Carbon Dioxide 30 mmol/L (22-30); Chloride 106 mmol/L (98-107); Non-African American GFR(CKD) 89 (>60 ml/min/1.73 sqM); Potassium 4.5 mmol/L (3.5-5.1); Sodium 139 mmol/L (137-145)
== END | disposition home or self-care (01) ==
LOC: LABPAT 13:55
PROVIDERS: ATTEND Internal Medicine Interventional Cardiology
DX: Z01.818 Encounter for other preprocedural examination (principal); R07.89 Other chest pain
CPT/HCPCS: 80051; 82565; 84520; 85027

== ENCOUNTER 2020-08-03 10:29 | Day surgery (SDC) | payer MEDICARE ==
[2020-07-28 13:11] VITALS: BMI 27.1
[~2020-08-03 10:29] MED LIST changes: +ALPRAZolam 0.25 MG TAB PO PRN; +ALPRAZolam 0.5 MG TAB PO PRN; +ASPIRIN 325 MG TAB PO STA; +ATORVASTATIN 80 MG TAB PO STA; -LACTATED RINGERS 1,000 ML IV SCH; -LIDOCAINE 1% (10MG/ML) FOR IV START INTRADERMA PRN; +NITROGLYCERIN SL TABS 0.4 MG TAB SUBLINGUAL PRN; +SODIUM CHLORIDE 0.9% 1,000 ML in EMPTY BAG 1 BAG IV ONE
[2020-08-03] MEDS ORDERED: ONDANSETRON 4 MG/2 ML VIAL ONE (11:26)
[2020-08-03 11:32] VITALS: RESP 16; TEMP 98.4
[2020-08-03] MEDS ORDERED: VERAPAMIL 2.5 MG/ML 2 ML AMP ONE (12:42)
[2020-08-03] MEDS ORDERED: HEPARIN SODIUM 1,000 UN/ML (10ML VL) ONE (12:42)
[2020-08-03] MEDS ORDERED: LIDOCAINE 1% INJ 10MG/ML (20 ML MDV) ONE (12:42)
[2020-08-03] MEDS ORDERED: MIDAZOLAM 2 MG/2 ML VIAL IV ONE (12:58)
[2020-08-03] MEDS ORDERED: LIDOCAINE 1% INJ 10MG/ML (20 ML MDV) SQ ONE ×2 (13:01→13:02)
[2020-08-03] MEDS: VERAPAMIL SYRINGE (5 MG/10 ML) INTRAARTER ONE ×2 (13:04→13:11)
[2020-08-03] MEDS ORDERED: HEPARIN SODIUM 1,000 UN/ML (10ML VL) IV ONE (13:05)
[2020-08-03] MEDS ORDERED: IOPAMIDOL-370 125ML BTL INJ ONE (13:11)
[2020-08-03] MEDS ORDERED: RX INFO: IV CONTRAST WAS GIVEN 1 EACH MISC MISCELLANE PRN (13:16)
[2020-08-03] MEDS ORDERED: SODIUM CHLORIDE 0.9% 1,000 ML IV SCH (13:30)
--- NOTE | 2020-08-03 13:54 | CC ---
CARDIAC CATHETERIZATION REPORT DATE OF SERVICE: August 03, 2020. PERFORMING PHYSICIAN: Iraj Prather MD. PROCEDURE PERFORMED: 1. Selective right and left coronary angiogram. 2. Left heart catheterization. INDICATION: This is a pleasant 65-year-old gentleman with hypertension and dyslipidemia who was going to undergo neck surgery and underwent myocardial perfusion imaging stress test and that came in to be abnormal showing inferior ischemia. Because of that, a heart catheterization was advised. APPROACH: Right radial artery. COMPLICATION: None. LEVEL OF SEDATION: Moderate with sedation length of 13 minutes. PROCEDURE DESCRIPTION: After obtaining an informed consent, the patient was brought to the cardiac label printer. The right radial artery was cannulated using micropuncture technique, the micropuncture wire passed easily then I placed a 5-Faroese sheath in the right radial artery. Selective right and left coronary angiogram performed with JR4 and JL3.5 catheters. Left heart catheterization was performed using JR4 catheter. The procedure was completed without any complication. SELECTIVE CORONARY ANGIOGRAM: 1. The RCA is calcified with mild disease only. The RCA is a dominant vessel. Distally it bifurcates into PDA and PLV branches, both appeared to be angiographically normal. 2. The left main is angiographically normal. It bifurcates into LCX and LAD. 3. The LCX is a large caliber vessel. It is a nondominant vessel. The LCX is angiographically normal. It gives rise into the first and second obtuse marginal branches, both appeared to be angiographically normal. 4. The LAD is a large caliber vessel. The LAD has mild disease in the proximal portion. The LAD is calcified. CONCLUSION: 1. Calcified right and left coronary system. 2. Normal LVEDP. POSTPROCEDURE MANAGEMENT: Medical treatment and follow up with the patient. MMODL / IJN: [id number] /
[2020-08-03 17:00] VITALS: BP 141/75; PULSE 62
== END 2020-08-03 17:55 | disposition home or self-care (01) ==
LOC: CATHCVL 10:29
PROVIDERS: ATTEND Internal Medicine Interventional Cardiology
DX: I25.10 Atherosclerotic heart disease of native coronary artery without angina pectoris (principal); R94.39 Abnormal result of other cardiovascular function study; R07.89 Other chest pain; I10 Essential (primary) hypertension; E78.00 Pure hypercholesterolemia, unspecified; E78.5 Hyperlipidemia, unspecified; Z72.0 Tobacco use; Z79.1 Long term (current) use of non-steroidal anti-inflammatories (NSAID); Z88.1 Allergy status to other antibiotic agents
CPT/HCPCS: 93458; C1769; C1894; J2250; J2405; J2001; J1644; Q9967

== ENCOUNTER → 2021-05-16 | Outpatient (CLI) | payer MEDICARE ==
--- NOTE | 2021-05-17 06:37 | CT ---
EXAMINATION TYPE: CT chest wo con DATE OF EXAM: 05/16/2021 COMPARISON: CTA chest March 05, 2020 HISTORY: Observation for asbestos plaque CT DLP: 792.5 mGycm. Automated Exposure Control for Dose Reduction was Utilized. TECHNIQUE: CT scan of the thorax is performed without IV contrast. High-resolution protocol with 1 m m sequences obtained in 10 mm intervals in supine and prone technique FINDINGS: LUNGS: Mild scattered areas of peripheral fibrosis for reference right middle lobe series 4 image 24. No pleural effusion or pneumothorax. No pulmonary masses. No significant bronchiectasis or honeycomb ing. Scattered predominantly noncalcified bilateral pleural plaques redemonstrated. MEDIASTINUM: Lack of IV contrast and technique are noted to limit evaluation for mediastinal and anthony cially hilar adenopathy. There are no definitive greater than 1 cm mediastinal lymph nodes. No card iomegaly or pericardial effusion is seen. Moderate to severe three-vessel coronary artery calcificati on is redemonstrated. OTHER: Some scattered colonic diverticula. IMPRESSION: Bilateral pleural plaques consistent with prior asbestos exposure redemonstrated. Scatter ed mild peripheral fibrotic changes.
== END | disposition home or self-care (01) ==
LOC: RADCTMAIN 18:17
PROVIDERS: ATTEND Internal Medicine
DX: J92.0 Pleural plaque with presence of asbestos (principal); J84.10 Pulmonary fibrosis, unspecified
CPT/HCPCS: 71250

== ENCOUNTER 2021-11-16 14:02 | Emergency (ER) | payer MEDICARE ==
[2021-11-16 14:10] VITALS: RESP 18
--- NOTE | 2021-11-16 14:28 | ED ---
General Adult HPI - General Chief complaint: Recheck/Abnormal Lab/Rx Stated complaint: Sent by PCP for antibodies Time Seen by Provider: 11/16/21 14:10 Source: patient Mode of arrival: ambulatory Limitations: no limitations - History of Present Illness Initial comments: 66-year-old male with past nuchal history of colitis on immunodepressive medication presents emergency department for antibody infusion. He was tested yesterday for Covid as he has been having symptoms of fevers, chills, nausea, myalgias since Sunday. Patient has not previously vaccinated against Covid. He is able to eat and drink without difficulty. No vomiting. Denies any shortness of breath or chest pain. Dr. Nelson recommended antibody infusion due to his immunosuppressed state. No other alleviating, precipitating or modifying factors - Related Data Home Medications Medication Instructions Recorded Confirmed Cholecalciferol (Vitamin D3) 2,000 unit PO DAILY 01/18/17 08/03/20 [Vitamin D3] Ubidecarenone [Co Q-10] 100 mg PO DAILY 01/18/17 08/03/20 Vitamin B Complex 1 cap PO DAILY 01/18/17 08/03/20 Albuterol Sulfate [Ventolin HFA] 2 puff INHALATION RT-Q4H PRN 03/05/20 07/28/20 Magnesium 200 mg PO DAILY 07/28/20 08/03/20 Mesalamine W/Cleansing Wipes 4 gm RECTAL DAILY PRN 07/28/20 08/03/20 [Rowasa 4 gm/60 ml Enema Kit] Allergies Allergy/AdvReac Type Severity Reaction Status Date / Time erythromycin base AdvReac Severe Nausea, Verified 11/16/21 14:10 Flare up of colitis with blood in stool amoxicillin [From Augmentin] AdvReac Flare up Verified 11/16/21 14:10 of colitis-with blood in stool clavulanic acid AdvReac Flare up Verified 11/16/21 14:10 [From Augmentin] of colitis-with blood in stool NSAIDS (Non-Steroidal AdvReac Flare up Verified 11/16/21 14:10 Anti-Inflamma of colitis-with blood in stool Review of Systems ROS Statement: Those systems with pertinent positive or pertinent negative responses have been documented in the HPI. ROS Other: All systems not noted in ROS Statement are negative. Past Medical History Past Medical History: Asthma, Cancer, GERD/Reflux Additional Past Medical History / Comment(s): HX OF SHINGLES 2013, exercise induced Asthma, Migraines, Basal cell cancer on nose 2019, Rosacea, DIVERTICULOSIS, COLITIS w/ blood in stools History of Any Multi-Drug Resistant Organisms: None Reported Past Surgical History: Hernia Repair, Orthopedic Surgery Additional Past Surgical History / Comment(s): LT KNEE SURGERY LIGAMENT REPAIR, DESTIN ING HERNIAS, EGD, COLONOSCOPY'S, BONE SPUR REMOVED FROM RT GREAT TOE, LT ARM MUCSLE BX. Past Anesthesia/Blood Transfusion Reactions: Postoperative Nausea & Vomiting (PONV) Additional Past Anesthesia/Blood Transfusion Reaction / Comment(s): PONV in s x1. Past Psychological History: No Psychological Hx Reported Smoking Status: Former smoker - Past Family History Brother(s) Family Medical History: Cancer Additional Family Medical History / Comment(s): SKIN & PROSTATE CANCER. Father Family Medical History: Dementia Additional Family Medical History / Comment(s): ALZHEIMERS Mother Family Medical History: Congestive Heart Failure (CHF) General Exam Limitations: no limitations General appearance: alert, in no apparent distress Head exam: Present: atraumatic, normocephalic, normal inspection Eye exam: Present: normal appearance, PERRL, EOMI. Absent: scleral icterus, conjunctival injection, periorbital swelling ENT exam: Present: normal exam, mucous membranes moist Neck exam: Present: normal inspection. Absent: tenderness, meningismus, lymphadenopathy Respiratory exam: Present: normal lung sounds bilaterally. Absent: respiratory distress, wheezes, rales, rhonchi, stridor Cardiovascular Exam: Present: regular rate, normal rhythm, normal heart sounds. Absent: systolic murmur, diastolic murmur, rubs, gallop, clicks GI/Abdominal exam: Present: soft, normal bowel sounds. Absent: distended, tenderness, guarding, rebound, rigid Extremities exam: Present: normal inspection, full ROM, normal capillary refill. Absent: tenderness, pedal edema, joint swelling, calf tenderness Back exam: Present: normal inspection Neurological exam: Present: alert, oriented X3, CN II-XII intact Psychiatric exam: Present: normal affect, normal mood Skin exam: Present: warm, dry, intact, normal color. Absent: rash Course Vital Signs 11/16/21 11/16/21 11/16/21 14:04 15:03 16:05 Temperature 100.5 F H 100.3 F H 99.6 F Pulse Rate 84 90 73 Respiratory 18 18 18 Rate Blood Pressure 143/75 145/70 131/70 O2 Sat by Pulse 97 98 96 Oximetry Medical Decision Making - Medical Decision Making Upon arrival patient is placed in room 32. A thorough history and physical exam was performed. Patient does meet criteria for antibody infusion. No hypoxia at this time. Patient will be discharged home after infusion. He is instructed to return for any worsening symptoms Disposition Clinical Impression: COVID-19 Disposition: HOME SELF-CARE Condition: Stable Instructions (If sedation given, give patient instructions): COVID-19 (Coronavirus Disease 2019) (ED) Additional Instructions: you were given antibodies today. You may take Motrin and Tylenol for pain and fever control. Return to the ED for any new or worsening symptoms. Is patient prescribed a controlled substance at d/c from ED?: No Referrals: Brandi Nelson MD [Primary Care Provider] - 1-2 days Time of Disposition: 14:28
[2021-11-16] MEDS ORDERED: BEBTELOVIMAB (EUA) 175 MG/2 ML VIAL IV ONE (15:00)
[2021-11-16 16:06] VITALS: BP 131/70; PULSE 73; TEMP 99.6
== END 2021-11-16 16:06 | disposition home or self-care (01) ==
LOC: EC 14:02
DX: U07.1 COVID-19 (principal); J45.909 Unspecified asthma, uncomplicated; K21.9 Gastro-esophageal reflux disease without esophagitis; Z87.891 Personal history of nicotine dependence; Z88.0 Allergy status to penicillin; Z88.1 Allergy status to other antibiotic agents; Z88.6 Allergy status to analgesic agent; Z79.899 Other long term (current) drug therapy
CPT/HCPCS: 99283; Q0222

== ENCOUNTER 2021-11-25 10:54 | Emergency (ER) | payer MEDICARE ==
[2021-11-25 11:01] VITALS: PULSE 104; RESP 20
--- NOTE | 2021-11-25 12:03 | ED ---
General Adult HPI - General Chief complaint: Upper Respiratory Infection Stated complaint: Wheezing,Covid Time Seen by Provider: 11/25/21 11:00 Source: patient, RN notes reviewed, old records reviewed Mode of arrival: ambulatory Limitations: no limitations - History of Present Illness Initial comments: This is a 66-year-old male who presents emergency Department stating that he had COVID about 9 days ago and since then he has had multiple episodes of what he believes to be a little wheezing and chest tightness. Patient states he comes and goes he seems to have to cough quite a bit to open himself up and then it goes away. Patient just was concerned that something might be going on and his lungs still he wanted to get checked out. Patient denies any fever chills. Patient denies any chest pain. Patient states that he did get the monoclonal antibodies last week. Patient denies any abdominal pain patient denies nausea vomiting diarrhea. Patient states she's got a pulse oximeter at home and his oxygenation is been in the high 90s. - Related Data Home Medications Medication Instructions Recorded Confirmed Ubidecarenone [Co Q-10] 100 mg PO DAILY 01/18/17 11/25/21 Vitamin B Complex 1 cap PO DAILY 01/18/17 11/25/21 Magnesium 200 mg PO DAILY 07/28/20 11/25/21 Ascorbic Acid [Vitamin C] 500 mg PO DAILY 11/25/21 11/25/21 Cholecalciferol [Vitamin D3 (25 50 mcg PO DAILY 11/25/21 11/25/21 Mcg = 1000 Iu)] Entyvio 1 dose IV Q60D 11/25/21 11/25/21 Previous Rx's Medication Instructions Recorded Albuterol Inhaler [Ventolin Hfa 2 puff INHALATION RT-QID #18 gm 11/25/21 Inhaler] Allergies Allergy/AdvReac Type Severity Reaction Status Date / Time erythromycin base AdvReac Severe Nausea, Verified 11/25/21 12:57 Flare up of colitis with blood in stool amoxicillin [From Augmentin] AdvReac Flare up Verified 11/25/21 12:57 of colitis-with blood in stool clavulanic acid AdvReac Flare up Verified 11/25/21 12:57 [From Augmentin] of colitis-with blood in stool NSAIDS (Non-Steroidal AdvReac Flare up Verified 11/25/21 12:57 Anti-Inflamma of colitis-with blood in stool Review of Systems ROS Statement: Those systems with pertinent positive or pertinent negative responses have been documented in the HPI. ROS Other: All systems not noted in ROS Statement are negative. Past Medical History Past Medical History: Asthma, Cancer, GERD/Reflux Additional Past Medical History / Comment(s): HX OF SHINGLES 2013, exercise induced Asthma, Migraines, Basal cell cancer on nose 2020, Rosacea, DIVERTICULOSIS, COLITIS w/ blood in stools History of Any Multi-Drug Resistant Organisms: None Reported Past Surgical History: Hernia Repair, Orthopedic Surgery Additional Past Surgical History / Comment(s): LT KNEE SURGERY LIGAMENT REPAIR, DESTIN ING HERNIAS, EGD, COLONOSCOPY'S, BONE SPUR REMOVED FROM RT GREAT TOE, LT ARM MUCSLE BX. Past Anesthesia/Blood Transfusion Reactions: Postoperative Nausea & Vomiting (PONV) Additional Past Anesthesia/Blood Transfusion Reaction / Comment(s): PONV in 1969's x1. Past Psychological History: No Psychological Hx Reported Smoking Status: Former smoker Past Alcohol Use History: None Reported Past Drug Use History: None Reported - Past Family History Brother(s) Family Medical History: Cancer Additional Family Medical History / Comment(s): SKIN & PROSTATE CANCER. Father Family Medical History: Dementia Additional Family Medical History / Comment(s): ALZHEIMERS Mother Family Medical History: Congestive Heart Failure (CHF) General Exam - General Exam Comments Initial Comments: GENERAL: Patient is well-developed and well-nourished. Patient is nontoxic and well- hydrated and is in no acute distress. ENT: Neck is soft and supple. No significant lymphadenopathy is noted. Oropharynx is clear. Moist mucous membranes. Neck has full range of motion without eliciting any pain. EYES: The sclera were anicteric and conjunctiva were pink and moist. Extraocular movements were intact and pupils were equal round and reactive to light. Eyelids were unremarkable. PULMONARY: Unlabored respirations. Good breath sounds bilaterally. No audible rales rhonchi or wheezing was noted. CARDIOVASCULAR: There is a regular rate and rhythm without any murmurs gallops or rubs. ABDOMEN: Soft and nontender with normal bowel sounds. SKIN: Skin is clear with no lesions or rashes and otherwise unremarkable. NEUROLOGIC: Patient is alert and oriented x3. Cranial nerves II through XII are grossly intact. Motor and sensory are also intact. Normal speech, volume and content. Symmetrical smile. MUSCULOSKELETAL: Normal extremities with adequate strength and full range of motion. No lower extremity swelling or edema. No calf tenderness. LYMPHATICS: No significant lymphadenopathy is noted PSYCHIATRIC: Normal psychiatric evaluation. Limitations: no limitations Course Vital Signs 11/25/21 10:59 Temperature 97.8 F Pulse Rate 104 H Respiratory 20 Rate Blood Pressure 125/70 O2 Sat by Pulse 97 Oximetry Medical Decision Making - Medical Decision Making X-ray shows no acute findings. Patient was oxygenating well. Patient's EKG shows sinus rhythm at 81 bpm SD interval 278 QRSs 93 Q-T intervals 340 QTC is 366. Patient states he has episodes where his wheezing he has to cough once I did give the patient an inhaler to go home with. Disposition Clinical Impression: COVID, Bronchospasm Disposition: HOME SELF-CARE Condition: Good Instructions (If sedation given, give patient instructions): Bronchospasm (ED) Prescriptions: Albuterol Inhaler [Ventolin Hfa Inhaler] 2 puff INHALATION RT-QID #18 gm Is patient prescribed a controlled substance at d/c from ED?: No Referrals: Brandi Nelson MD [Primary Care Provider] - 1-2 days Time of Disposition: 12:52
--- NOTE | 2021-11-25 12:35 | XR ---
EXAMINATION TYPE: XR chest 2V DATE OF EXAM: 11/25/2021 COMPARISON: CT chest 05/16/2021, chest x-ray 03/05/2020 HISTORY: Difficulty breathing TECHNIQUE: Frontal and lateral views of the chest are obtained. FINDINGS: There is no focal air space opacity, pleural effusion, or pneumothorax seen. The cardiac silhouette size is within normal limits. Soft tissue densities along the anterior left chest consiste nt with pleural plaques. The osseous structures are intact. IMPRESSION: Pleural plaques again noted.
[2021-11-25 13:27] VITALS: BP 120/68; TEMP 98
== END 2021-11-25 13:27 | disposition home or self-care (01) ==
LOC: EC 10:54
DX: U07.1 COVID-19 (principal); J98.01 Acute bronchospasm; J45.909 Unspecified asthma, uncomplicated; Z87.891 Personal history of nicotine dependence; Z88.0 Allergy status to penicillin; Z88.1 Allergy status to other antibiotic agents; Z88.6 Allergy status to analgesic agent
CPT/HCPCS: 71046; 93005; 99285

== ENCOUNTER 2022-04-26 10:04 | Day surgery (SDC) | payer MEDICARE ==
[~2022-04-26 10:04] MED LIST changes: -ALPRAZolam 0.25 MG TAB PO PRN; -ALPRAZolam 0.5 MG TAB PO PRN; -ASPIRIN 325 MG TAB PO STA; -ATORVASTATIN 80 MG TAB PO STA; +LACTATED RINGERS 1,000 ML IV SCH; +LIDOCAINE 1% (10MG/ML) FOR IV START INTRADERMA PRN; -NITROGLYCERIN SL TABS 0.4 MG TAB SUBLINGUAL PRN; -SODIUM CHLORIDE 0.9% 1,000 ML in EMPTY BAG 1 BAG IV ONE
[2022-04-26 11:04] VITALS: TEMP 97.3
[2022-04-26] MEDS ORDERED: LIDOCAINE 2% INJ 20 MG/ML (2 ML VIAL) ONE (11:58)
[2022-04-26] MEDS ORDERED: PROPOFOL 10 MG/ML 20 ML VIAL IV ONE (11:58)
--- NOTE | 2022-04-26 12:17 | P.PCN ---
Date of Procedure: 04/26/22 Procedure(s) Performed: BRIEF HISTORY: Patient is a 66-year-old pleasant male scheduled for an elective colonoscopy as a part of surveillance of long-standing history of ulcerative colitis diagnosed in 2013. He is presently maintained on interview infusions and Canasa suppositories PROCEDURE PERFORMED: Colonoscopy random biopsy. PREOPERATIVE DIAGNOSIS: Long-standing history of proctosigmoiditis diagnosed in 2013. IV sedation per Anesthesia. PROCEDURE: After informed consent was obtained, the patient, was brought into the endoscopy unit. IV sedation was administered by Anesthesia under continuous monitoring. Digital rectal examination revealed some external skin tags.. Initially the Olympus CF-160 flexible video colonoscope was then inserted in the rectum, gradually advanced into the cecum without any difficulty. Careful examination was performed as the scope was gradually being withdrawn. Ileocecal valve and the appendiceal orifice were visualized and appeared normal. Prep was excellent. Mucosa of the cecum, ascending colon, transverse colon, descending colon, sigmoid colon, and rectum appeared normal. Scattered diffuse diverticula cyst. Random biopsies were done from the cecum to rectum at every 10 cm into well. Retroflexion was performed in the rectum and skin tags noted on the dentate line. patienttolerated the procedure well. IMPRESSION: Normal-appearing colon from rectum to cecum with no evidence of active colitis or colorectal neoplasia. Scattered diffuse diverticulosis. External skin tags. RECOMMENDATIONS: Findings of this examination were discussed with the patient as well as his family. He was advised to follow with the biopsy results. If the biopsy reveals no evidence of from dysplasia he can have a repeat colonoscopy in 2 years..
[2022-04-26 12:35] VITALS: BP 123/70; PULSE 73; RESP 16
== END 2022-04-26 12:45 | disposition home or self-care (01) ==
LOC: ORWHC2ENDO 10:04
PROVIDERS: ATTEND Internal Medicine Gastroenterology
DX: K51.30 Ulcerative (chronic) rectosigmoiditis without complications (principal); K52.9 Noninfective gastroenteritis and colitis, unspecified; K57.30 Diverticulosis of large intestine without perforation or abscess without bleeding; L91.8 Other hypertrophic disorders of the skin; K63.5 Polyp of colon
CPT/HCPCS: 88305; 45380; J2704; J2001

== ENCOUNTER 2022-04-27 11:06 | Emergency (ER) | payer MEDICARE ==
[2022-04-27] MEDS ORDERED: SODIUM CHLORIDE 0.9% 1,000 ML IV STA (15:54)
--- NOTE | 2022-04-27 15:57 | ED ---
General Adult HPI - General Chief complaint: Weakness Stated complaint: high heart rate, Nausea, light headed Time Seen by Provider: 04/27/22 15:25 Source: patient, RN notes reviewed Mode of arrival: ambulatory Limitations: no limitations - History of Present Illness Initial comments: Patient is a pleasant 66-year-old male presenting to the emergency department with concerns for high heart rate. Patient has not felt well since his colonoscopy yesterday. Patient has felt lightheaded. Patient was fatigued. Patient still felt this way somewhat this morning. Patient's heart rate was 112 when he woke this morning. Patient does have a machine at home that he can check that on. No chest pain or dyspnea. No weakness or confusion. No headache. Symptoms are improving however not resolved. - Related Data Home Medications Medication Instructions Recorded Confirmed Ubidecarenone [Co Q-10] 100 mg PO DAILY 01/18/17 04/25/22 Vitamin B Complex 1 cap PO DAILY 01/18/17 04/25/22 Magnesium 200 mg PO DAILY 07/28/20 04/25/22 Cholecalciferol [Vitamin D3 (25 50 mcg PO DAILY 11/25/21 04/25/22 Mcg = 1000 Iu)] Entyvio 1 dose IV Q60D 11/25/21 04/25/22 Mesalamine [Canasa] 1,000 mg RECTAL DIRECTED PRN 04/25/22 04/25/22 Allergies Allergy/AdvReac Type Severity Reaction Status Date / Time erythromycin base AdvReac Severe Nausea, Verified 04/25/22 11:23 Flare up of colitis with blood in stool amoxicillin [From Augmentin] AdvReac Flare up Verified 04/25/22 11:23 of colitis-with blood in stool clavulanic acid AdvReac Flare up Verified 04/25/22 11:23 [From Augmentin] of colitis-with blood in stool NSAIDS (Non-Steroidal AdvReac Flare up Verified 04/25/22 11:23 Anti-Inflamma of colitis-with blood in stool Review of Systems ROS Statement: Those systems with pertinent positive or pertinent negative responses have been documented in the HPI. ROS Other: All systems not noted in ROS Statement are negative. Constitutional: Denies: fever Eyes: Denies: eye pain ENT: Denies: ear pain Respiratory: Denies: cough Cardiovascular: Denies: chest pain Endocrine: Denies: fatigue Gastrointestinal: Denies: abdominal pain Genitourinary: Denies: dysuria Musculoskeletal: Denies: back pain Skin: Denies: rash Neurological: Denies: headache, weakness, confusion Past Medical History Past Medical History: Asthma, Cancer, GERD/Reflux Additional Past Medical History / Comment(s): HX OF SHINGLES 2013, exercise induced Asthma, Migraines, Basal cell cancer on nose 2019, Rosacea, DIVERTICULOSIS, COLITIS w/ blood in stools. ? sleep apnea, seeing Dr in near future. gets up several times a night to use bathroom History of Any Multi-Drug Resistant Organisms: None Reported Past Surgical History: Hernia Repair, Orthopedic Surgery Additional Past Surgical History / Comment(s): LT KNEE SURGERY LIGAMENT REPAIR, DESTIN ING HERNIAS, EGD, COLONOSCOPY'S x 5 BONE SPUR REMOVED FROM RT GREAT TOE, LT ARM MUCSLE BX. Past Anesthesia/Blood Transfusion Reactions: Postoperative Nausea & Vomiting (PONV) Additional Past Anesthesia/Blood Transfusion Reaction / Comment(s): PONV in s x1. Past Psychological History: No Psychological Hx Reported Smoking Status: Former smoker Past Alcohol Use History: None Reported Past Drug Use History: None Reported - Past Family History Brother(s) Family Medical History: Cancer Additional Family Medical History / Comment(s): SKIN & PROSTATE CANCER. Father Family Medical History: Dementia Additional Family Medical History / Comment(s): ALZHEIMERS Mother Family Medical History: Congestive Heart Failure (CHF) General Exam Limitations: no limitations General appearance: alert, in no apparent distress Head exam: Present: normocephalic Eye exam: Present: normal appearance, PERRL, EOMI Neck exam: Present: normal inspection Respiratory exam: Present: normal lung sounds bilaterally Cardiovascular Exam: Present: regular rate, normal rhythm GI/Abdominal exam: Present: soft, normal bowel sounds. Absent: distended, tenderness, guarding, rebound, rigid, pulsatile mass Extremities exam: Present: normal inspection. Absent: pedal edema, calf tenderness Neurological exam: Present: alert Psychiatric exam: Present: normal affect, normal mood Skin exam: Present: normal color Course Vital Signs 04/27/22 11:22 Temperature 98.3 F Pulse Rate 104 H Respiratory 16 Rate Blood Pressure 116/71 O2 Sat by Pulse 97 Oximetry EKG Findings - EKG Comments: EKG Findings:: Sinus rhythm 87. IL 181. QRS 82. QT 348. QTC 393. Normal axis. Normal QRS. No acute ST change. Medical Decision Making - Medical Decision Making Patient reevaluated and resting comfortably in bed. Heart rate 70. Patient symptom-free. Patient updated on results and need for follow-up. - Lab Data Result diagrams: 04/27/22 15:58 04/27/22 15:58 Lab Results 04/27/22 04/27/22 04/27/22 Range/Units 15:50 15:58 15:58 WBC 7.1 (3.8-10.6) k/uL RBC 4.67 (4.30-5.90) m/uL Hgb 16.1 (13.0-17.5) gm/dL Hct 43.2 (39.0-53.0) % MCV 92.5 (80.0-100.0) fL MCH 34.4 (25.0-35.0) pg MCHC 37.2 H (31.0-37.0) g/dL RDW 12.4 (11.5-15.5) % Plt Count 131 L (150-450) k/uL MPV 9.1 Neutrophils % 77 % Lymphocytes % 15 % Monocytes % 4 % Eosinophils % 2 % Basophils % 0 % Neutrophils # 5.5 (1.3-7.7) k/uL Lymphocytes # 1.1 (1.0-4.8) k/uL Monocytes # 0.3 (0-1.0) k/uL Eosinophils # 0.1 (0-0.7) k/uL Basophils # 0.0 (0-0.2) k/uL PT 11.8 (9.0-12.0) sec INR 1.1 (<1.2) APTT 26.6 (22.0-30.0) sec Sodium (137-145) mmol/L Potassium (3.5-5.1) mmol/L Chloride (98-107) mmol/L Carbon Dioxide (22-30) mmol/L Anion Gap mmol/L BUN (9-20) mg/dL Creatinine (0.66-1.25) mg/dL Est GFR (CKD-EPI)AfAm (>60 ml/min/1.73 sqM) Est GFR (CKD-EPI)NonAf (>60 ml/min/1.73 sqM) Glucose (74-99) mg/dL Calcium (8.4-10.2) mg/dL Magnesium (1.6-2.3) mg/dL Total Bilirubin (0.2-1.3) mg/dL AST (17-59) U/L ALT (4-49) U/L Alkaline Phosphatase (38-126) U/L Total Protein (6.3-8.2) g/dL Albumin (3.5-5.0) g/dL TSH (0.465-4.680) mIU/L Free T4 (0.78-2.19) ng/dL Free T3 pg/mL (2.8-5.3) pg/ml Urine Color Yellow Urine Appearance Clear (Clear) Urine pH 5.5 (5.0-8.0) Ur Specific Camp 1.012 (1.001-1.035) Urine Protein Negative (Negative) Urine Glucose (UA) Negative (Negative) Urine Ketones Negative (Negative) Urine Blood Negative (Negative) Urine Nitrite Negative (Negative) Urine Bilirubin Negative (Negative) Urine Urobilinogen <2.0 (<2.0) mg/dL Ur Leukocyte Esterase Negative (Negative) Coronavirus (PCR) (Not Detectd) 04/27/22 04/27/22 Range/Units 15:58 16:01 WBC (3.8-10.6) k/uL RBC (4.30-5.90) m/uL Hgb (13.0-17.5) gm/dL Hct (39.0-53.0) % MCV (80.0-100.0) fL MCH (25.0-35.0) pg MCHC (31.0-37.0) g/dL RDW (11.5-15.5) % Plt Count (150-450) k/uL MPV Neutrophils % % Lymphocytes % % Monocytes % % Eosinophils % % Basophils % % Neutrophils # (1.3-7.7) k/uL Lymphocytes # (1.0-4.8) k/uL Monocytes # (0-1.0) k/uL Eosinophils # (0-0.7) k/uL Basophils # (0-0.2) k/uL PT (9.0-12.0) sec INR (<1.2) APTT (22.0-30.0) sec Sodium 139 (137-145) mmol/L Potassium 4.5 (3.5-5.1) mmol/L Chloride 105 (98-107) mmol/L Carbon Dioxide 23 (22-30) mmol/L Anion Gap 11 mmol/L BUN 10 (9-20) mg/dL Creatinine 0.89 (0.66-1.25) mg/dL Est GFR (CKD-EPI)AfAm >90 (>60 ml/min/1.73 sqM) Est GFR (CKD-EPI)NonAf 89 (>60 ml/min/1.73 sqM) Glucose 83 (74-99) mg/dL Calcium 8.9 (8.4-10.2) mg/dL Magnesium 2.1 (1.6-2.3) mg/dL Total Bilirubin 0.7 (0.2-1.3) mg/dL AST 26 (17-59) U/L ALT 25 (4-49) U/L Alkaline Phosphatase 69 (38-126) U/L Total Protein 6.7 (6.3-8.2) g/dL Albumin 4.3 (3.5-5.0) g/dL TSH 1.930 (0.465-4.680) mIU/L Free T4 1.18 (0.78-2.19) ng/dL Free T3 pg/mL 4.0 (2.8-5.3) pg/ml Urine Color Urine Appearance (Clear) Urine pH (5.0-8.0) Ur Specific Camp (1.001-1.035) Urine Protein (Negative) Urine Glucose (UA) (Negative) Urine Ketones (Negative) Urine Blood (Negative) Urine Nitrite (Negative) Urine Bilirubin (Negative) Urine Urobilinogen (<2.0) mg/dL Ur Leukocyte Esterase (Negative) Coronavirus (PCR) Not Detected (Not Detectd) - Radiology Data Radiology results: image reviewed (Chest and abdominal x-ray revealed no acute abnormality) Disposition Clinical Impression: Lightheadedness Disposition: HOME SELF-CARE Condition: Stable Instructions (If sedation given, give patient instructions): Tachycardia (ED), Lightheadedness (ED) Additional Instructions: Please do follow-up to primary care physician in the next day or 2 for recheck. Return for increased heart rate, weakness or confusion, increased dizziness, worsening or changing symptoms or any other concerns. Is patient prescribed a controlled substance at d/c from ED?: No Referrals: Brandi Nelson MD [Primary Care Provider] - 1-2 days Time of Disposition: 17:20
[2022-04-27 16:16] LABS: Appearance,Urine Clear (Clear); Bilirubin,Urine Negative (Negative); Blood,Urine Negative (Negative); Color,Urine Yellow; Glucose,Urine (UA) Negative (Negative); Ketones,Urine Negative (Negative); Leukocyte Esterase,Urine Negative (Negative); Nitrite,Urine Negative (Negative); PH, Urine 5.5 (5.0-8.0); Protein,Urine Negative (Negative); Specific Gravity,Urine 1.012 (1.001-1.035); Urobilinogen,Urine <2.0 mg/dL (<2.0)
[2022-04-27 16:16] LABS: Basophils % (A) 0 %; Eosinophils # (A) 0.1 k/uL (0-0.7); Eosinophils % (A) 2 %; HCT 43.2 % (39.0-53.0); HGB 16.1 gm/dL (13.0-17.5); Lymphocytes # (A) 1.1 k/uL (1.0-4.8); Lymphocytes % (A) 15 %; MCH 34.4 pg (25.0-35.0); MCHC 37.2 g/dL (31.0-37.0); MCV 92.5 fL (80.0-100.0); Mean Platelet Volume 9.1; Monocytes # (A) 0.3 k/uL (0-1.0); Monocytes % (A) 4 %; Neutrophils # (A) 5.5 k/uL (1.3-7.7); Neutrophils % (A) 77 %; Platelet Count 131 k/uL (150-450); RBC 4.67 m/uL (4.30-5.90); RDW 12.4 % (11.5-15.5); WBC 7.1 k/uL (3.8-10.6)
--- NOTE | 2022-04-27 16:21 | XR ---
EXAMINATION TYPE: XR chest 2V DATE OF EXAM: 04/27/2022 COMPARISON: Prior chest x-ray of November 25, 2021. Prior chest CT May 16, 2021. Prior CTA chest March 05, 2020 HISTORY: Dysrhythmia. TECHNIQUE: Frontal and lateral views of the chest are obtained. FINDINGS: There is no suspicious new focal air space opacity, pleural effusion, or pneumothorax seen . Pleural plaques on CT mimic nodules for reference left upper to mid lung centrally. The cardiac si lhouette size remains within normal limits. Overlying EKG leads are present on current study. The o sseous structures are intact. IMPRESSION: No acute process.
--- NOTE | 2022-04-27 16:24 | XR ---
EXAMINATION TYPE: XR abdomen 1V DATE OF EXAM: 04/27/2022 4:17 PM CLINICAL HISTORY: Nausea and weakness with syncope today after colonoscopy yesterday TECHNIQUE: Two Upright KUB images of the abdomen are obtained. COMPARISON: CT abdomen and pelvis October 09, 2016. FINDINGS: Scattered gas is seen in non-distended small bowel loops. Gas and fecal material is seen in non-distended colon. No free air. Lung bases are clear. Scattered left-sided pelvic phleboliths. IMPRESSION: Overall nonobstructive bowel gas pattern.
[2022-04-27 16:28] LABS: ALT 25 U/L (4-49); AST 26 U/L (17-59); African American GFR (CKD) >90 (>60 ml/min/1.73 sqM); Albumin 4.3 g/dL (3.5-5.0); Alkaline Phosphatase 69 U/L (38-126); Anion Gap 11 mmol/L; Blood Urea Nitrogen 10 mg/dL (9-20); Calcium 8.9 mg/dL (8.4-10.2); Carbon Dioxide 23 mmol/L (22-30); Chloride 105 mmol/L (98-107); Glucose 83 mg/dL (74-99); Magnesium 2.1 mg/dL (1.6-2.3); Non-African American GFR(CKD) 89 (>60 ml/min/1.73 sqM); Potassium 4.5 mmol/L (3.5-5.1); Sodium 139 mmol/L (137-145); Total Bilirubin 0.7 mg/dL (0.2-1.3); Total Protein 6.7 g/dL (6.3-8.2)
[2022-04-27 16:32] LABS: INR 1.1 (<1.2); Partial Thromboplastin Time 26.6 sec (22.0-30.0); Prothrombin Time 11.8 sec (9.0-12.0)
[2022-04-27 16:44] LABS: T4, Free (Free Thyroxine) 1.18 ng/dL (0.78-2.19)
[2022-04-27 17:19] VITALS: BP 118/76; PULSE 64; RESP 20; TEMP 97.6
== END 2022-04-27 17:28 | disposition home or self-care (01) ==
LOC: EC 11:06
DX: R42 Dizziness and giddiness (principal); J45.909 Unspecified asthma, uncomplicated; K21.9 Gastro-esophageal reflux disease without esophagitis; Z87.891 Personal history of nicotine dependence; Z88.1 Allergy status to other antibiotic agents; Z88.0 Allergy status to penicillin; Z88.6 Allergy status to analgesic agent
CPT/HCPCS: 36415; 71046; 74018; 80053; 81003; 83735; 84439; 84443; 84481; 85025; 85610; 85730; 87635; 93005; 96360; 99284; 99285

== ENCOUNTER 2022-08-04 20:42 | Emergency (ER) | payer MEDICARE ==
--- NOTE | 2022-08-04 21:05 | ED ---
Abdominal Pain HPI - General Chief Complaint: Abdominal Pain Stated Complaint: Lower Abd Pain Time Seen by Provider: 08/04/22 20:56 Source: patient Mode of arrival: ambulatory Limitations: no limitations - History of Present Illness Initial Comments: Patient is a 59-year-old male presenting to the emergency room with complaints of lower left abdominal pain which is radiating towards the umbilical region into his right side. He states that the pain is worse when he bends over or takes in a deep breath. He has a history of Crohn's colitis and is on biologic treatment and denies any recent severe flares he has blood in his stool often and denies any changes in his blood presents in his stool. He reports that his stools are a temp typically firmer in consistency and does report increase in difficulty defecating recently. He follows with Dr. Vázquez regularly in regards to his colitis. He denies any nausea, vomiting, chest pain, shortness of breath, fevers or chills. In addition to his colitis he has a history of asthma, GERD, skin cancer and migraines. - Related Data Home Medications Medication Instructions Recorded Confirmed Ubidecarenone [Co Q-10] 100 mg PO DAILY 01/18/17 04/25/22 Vitamin B Complex 1 cap PO DAILY 01/18/17 04/25/22 Magnesium 200 mg PO DAILY 07/28/20 04/25/22 Cholecalciferol [Vitamin D3 (25 50 mcg PO DAILY 11/25/21 04/25/22 Mcg = 1000 Iu)] Entyvio 1 dose IV Q60D 11/25/21 04/25/22 Mesalamine [Canasa] 1,000 mg RECTAL DIRECTED PRN 04/25/22 04/25/22 Allergies Allergy/AdvReac Type Severity Reaction Status Date / Time erythromycin base AdvReac Severe Nausea, Verified 08/04/22 20:47 Flare up of colitis with blood in stool amoxicillin [From Augmentin] AdvReac Flare up Verified 08/04/22 20:47 of colitis-with blood in stool clavulanic acid AdvReac Flare up Verified 08/04/22 20:47 [From Augmentin] of colitis-with blood in stool NSAIDS (Non-Steroidal AdvReac Flare up Verified 08/04/22 20:47 Anti-Inflamma of colitis-with blood in stool Review of Systems ROS Statement: Those systems with pertinent positive or pertinent negative responses have been documented in the HPI. ROS Other: All systems not noted in ROS Statement are negative. Past Medical History Past Medical History: Asthma, Cancer, GERD/Reflux Additional Past Medical History / Comment(s): HX OF SHINGLES 2013, exercise induced Asthma, Migraines, Basal cell cancer on nose 2019, Rosacea, DIVERTICULOSIS, COLITIS w/ blood in stools. ? sleep apnea, seeing Dr in near future. gets up several times a night to use bathroom History of Any Multi-Drug Resistant Organisms: None Reported Past Surgical History: Hernia Repair, Orthopedic Surgery Additional Past Surgical History / Comment(s): LT KNEE SURGERY LIGAMENT REPAIR, DESTIN ING HERNIAS, EGD, COLONOSCOPY'S x 5 BONE SPUR REMOVED FROM RT GREAT TOE, LT ARM MUCSLE BX. Past Anesthesia/Blood Transfusion Reactions: Postoperative Nausea & Vomiting (PONV) Additional Past Anesthesia/Blood Transfusion Reaction / Comment(s): PONV in 1970s x1. Past Psychological History: No Psychological Hx Reported Smoking Status: Former smoker Past Alcohol Use History: None Reported Past Drug Use History: None Reported - Past Family History Brother(s) Family Medical History: Cancer Additional Family Medical History / Comment(s): SKIN & PROSTATE CANCER. Father Family Medical History: Dementia Additional Family Medical History / Comment(s): ALZHEIMERS Mother Family Medical History: Congestive Heart Failure (CHF) General Exam - General Exam Comments Initial Comments: GENERAL: No acute distress, well developed, well nourished. HEENT: Normocephalic, atraumatic. Pupils equal, round, reactive to light. Moist mucous membranes. LUNGS: No respiratory distress. Clear to auscultation, no adventitious sounds, no use of accessory muscles. HEART: Regular rate and rhythm without murmur, rub, or gallop. ABDOMEN: Normal bowel sounds. Soft, non-distended. Mild tenderness left lower quadrant and. Umbilical region. BACK: Normal inspection. EXTREMITIES: No edema. No tenderness. Moves all extremities. NEUROLOGIC: Alert & oriented x 3. CN II-XII grossly intact. PSYCHIATRIC: Normal affect and behavior. DERMATOLOGIC: Skin intact, without rashes or lesions noted. Limitations: no limitations Course Vital Signs 08/04/22 08/04/22 20:44 22:31 Temperature 97.8 F 98.2 F Pulse Rate 82 66 Respiratory 20 16 Rate Blood Pressure 156/77 140/79 O2 Sat by Pulse 98 97 Oximetry Medical Decision Making - Medical Decision Making Was pt. sent in by a medical professional or institution (, KYLEIGH, QUANTITY SURVEYOR, urgent care, hospital, or long-term...) When possible be specific @ -No Did you speak to anyone other than the patient for history (EMS, parent, family, police, friend...)? What history was obtained from this source @ -No Did you review nursing and triage notes (agree or disagree)? Why? @ -I reviewed and agree with nursing and triage notes Were old charts reviewed (outside hosp., previous admission, EMS record, old EKG, old radiological studies, urgent care reports/EKG's, long-term records)? Report findings @ -No old charts were reviewed Differential Diagnosis (chest pain, altered mental status, abdominal pain women, abdominal pain men, vaginal bleeding, weakness, fever, dyspnea, syncope, headache, dizziness, GI bleed, back pain, seizure, CVA, palpatations, mental health)? @ -Differential Abdominal Pain Men: Appendicitis, cholecystitis, diverticulosis, ischemic bowel, pancreatitis, h epatitis, UTI, gastroenteritis, AAA, incarcerated hernia, bowel obstruction, constipation, inflammatory bowel, hepatitis, peptic ulcer disease, splenic infarction, perforated viscus, testicular torsion, this is not meant to be an all-inclusive list EKG interpreted by me (3pts min.). @ -As above X-rays interpreted by me (1pt min.). @ -None done CT interpreted by me (1pt min.). @ -CT of the abdomen and pelvis demonstrates no masses, obstruction or free fluid in the abdomen. Radiologist's report also reviewed. U/S interpreted by me (1pt. min.). @ -None done What testing was considered but not performed or refused? (CT, X-rays, U/S, labs)? Why? @ -Ultrasound considered however due to Crohn's colitis history CT obtained as above. What meds were considered but not given or refused? Why? @ -None Did you discuss the management of the patient with other professionals (professionals i.e. KYLEIGH Bowman, QUANTITY SURVEYOR, lab, RT, psych nurse, social human services assistants, leadership development manager, teacher, supply requirements officer, case management specialist)? Give summary @ -No Was smoking cessation discussed for >3mins.? @ -No Was critical care preformed (if so, how long)? @ -No Were there social determinants of health that impacted care today? How? (Homelessness, low income, unemployed, alcoholism, drug addiction, transportation, low edu. Level, literacy, decrease access to med. care, prison, rehab)? @ -No Was there de-escalation of care discussed even if they declined (Discuss DNR or withdrawal of care, Hospice)? DNR status @ -No What co-morbidities impacted this encounter? (DM, HTN, Smoking, COPD, CAD, Cancer, CVA, ARF, Chemo, Hep., AIDS, mental health diagnosis, sleep apnea, morbid obesity)? @ -Crohn's colitis Was patient admitted / discharged? Hospital course, mention meds given and route, prescriptions, significant lab abnormalities, going to OR and other pertinent info. @ -Left lower quadrant and periumbilical region abdominal pain with history of Crohn's colitis denies need for analgesic. Will obtain CBC, CMP, amylase, lipase along with CT of the abdomen and pelvis without contrast. Pain mild denies any analgesic need. CBC CMP amylase and lipase are all unremarkable. CT of the abdomen demonstrates diverticulosis. No acute inflammatory process or masses noted. No indication for further diagnostic imaging or laboratory studies at this time. Findings reviewed with patient. 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 Undiagnosed new problem with uncertain prognosis? @ -No Drug Therapy requiring intensive monitoring for toxicity (Heparin, Nitro, Insulin, Cardizem)? @ -No Were any procedures done? @ -No Diagnosis/symptom? @ -Abdominal pain Acute, or Chronic, or Acute on Chronic? @ -Acute Uncomplicated (without systemic symptoms) or Complicated (systemic symptoms)? @ -Uncomplicated Side effects of treatment? @ -No Exacerbation, Progression, or Severe Exacerbation? @ -No Poses a threat to life or bodily function? How? (Chest pain, [place], [place], pneumonia, PE, COPD, DKA, ARF, appy, cholecystitis, CVA, Diverticulitis, Homicidal, Suicidal, threat to staff... and all critical care pts) @ -No Case discussed with Dr. Frank - Lab Data Result diagrams: 08/04/22 21:34 01/13/23 21:34 Lab Results 08/04/22 08/04/22 Range/Units 21:34 21:34 WBC 6.7 (3.8-10.6) k/uL RBC 5.07 (4.30-5.90) m/uL Hgb 16.0 (13.0-17.5) gm/dL Hct 47.3 (39.0-53.0) % MCV 93.2 (80.0-100.0) fL MCH 31.6 (25.0-35.0) pg MCHC 33.9 (31.0-37.0) g/dL RDW 12.2 (11.5-15.5) % Plt Count 158 (150-450) k/uL MPV 8.7 Neutrophils % 68 % Lymphocytes % 22 % Monocytes % 6 % Eosinophils % 2 % Basophils % 0 % Neutrophils # 4.6 (1.3-7.7) k/uL Lymphocytes # 1.5 (1.0-4.8) k/uL Monocytes # 0.4 (0-1.0) k/uL Eosinophils # 0.1 (0-0.7) k/uL Basophils # 0.0 (0-0.2) k/uL Sodium 140 (137-145) mmol/L Potassium 4.6 (3.5-5.1) mmol/L Chloride 107 (98-107) mmol/L Carbon Dioxide 27 (22-30) mmol/L Anion Gap 6 mmol/L BUN 18 (9-20) mg/dL Creatinine 0.93 (0.66-1.25) mg/dL Est GFR (CKD-EPI)AfAm >90 (>60 ml/min/1.73 sqM) Est GFR (CKD-EPI)NonAf 84 (>60 ml/min/1.73 sqM) Glucose 91 (74-99) mg/dL Calcium 8.8 (8.4-10.2) mg/dL Total Bilirubin 0.4 (0.2-1.3) mg/dL AST 27 (17-59) U/L ALT 26 (4-49) U/L Alkaline Phosphatase 62 (38-126) U/L Total Protein 6.5 (6.3-8.2) g/dL Albumin 3.8 (3.5-5.0) g/dL Amylase 54 (30-110) U/L Lipase 92 (23-300) U/L - Radiology Data Radiology results: report reviewed, image reviewed Disposition Clinical Impression: Abdominal pain Disposition: HOME SELF-CARE Condition: Stable Instructions (If sedation given, give patient instructions): Abdominal Pain (ED) Additional Instructions: Please continue your treatment for your Crohn's colitis and follow-up with your primary care provider along with 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 Please return to the Emergency Department if symptoms worsen or any other concerns. Is patient prescribed a controlled substance at d/c from ED?: No Referrals: Brandi Nelson MD [Primary Care Provider] - 1-2 days Time of Disposition: 22:28
[2022-08-04 21:52] LABS: ALT 26 U/L (4-49); AST 27 U/L (17-59); African American GFR (CKD) >90 (>60 ml/min/1.73 sqM); Albumin 3.8 g/dL (3.5-5.0); Alkaline Phosphatase 62 U/L (38-126); Amylase 54 U/L (30-110); Anion Gap 6 mmol/L; Blood Urea Nitrogen 18 mg/dL (9-20); Calcium 8.8 mg/dL (8.4-10.2); Carbon Dioxide 27 mmol/L (22-30); Chloride 107 mmol/L (98-107); Glucose 91 mg/dL (74-99); Lipase 92 U/L (23-300); Non-African American GFR(CKD) 84 (>60 ml/min/1.73 sqM); Potassium 4.6 mmol/L (3.5-5.1); Sodium 140 mmol/L (137-145); Total Bilirubin 0.4 mg/dL (0.2-1.3); Total Protein 6.5 g/dL (6.3-8.2)
[2022-08-04 22:06] LABS: Basophils % (A) 0 %; Eosinophils # (A) 0.1 k/uL (0-0.7); Eosinophils % (A) 2 %; HCT 47.3 % (39.0-53.0); Lymphocytes # (A) 1.5 k/uL (1.0-4.8); Lymphocytes % (A) 22 %; MCH 31.6 pg (25.0-35.0); MCHC 33.9 g/dL (31.0-37.0); MCV 93.2 fL (80.0-100.0); Mean Platelet Volume 8.7; Monocytes # (A) 0.4 k/uL (0-1.0); Monocytes % (A) 6 %; Neutrophils # (A) 4.6 k/uL (1.3-7.7); Neutrophils % (A) 68 %; Platelet Count 158 k/uL (150-450); RBC 5.07 m/uL (4.30-5.90); RDW 12.2 % (11.5-15.5); WBC 6.7 k/uL (3.8-10.6)
--- NOTE | 2022-08-04 22:13 | CT ---
EXAMINATION TYPE: CT abdomen pelvis wo con DATE OF EXAM: 08/04/2022 COMPARISON: 10/09/2016 HISTORY: Sharp left side abdomen pain. CT DLP: 920.1 mGycm Automated exposure control for dose reduction was used. Images obtained with no contrast from the diaphragm to the floor the pelvis. The lung bases are clear. No pleural effusion. Heart size is normal. Liver spleen stomach pancreas gallbladder appear intact. The bowel is nondilated. There is no adrenal mass. Kidneys have normal size and contour. No hydronephrosis. Ureters are not di lated. No retroperitoneal adenopathy. Appendix is posterior and appears normal. Bladder distends smoothly. No inguinal hernia. There are prostatic calcifications. No free fluid in t he pelvis. No pelvic mass. There is no mesenteric edema. No ascites or free air. No sign of a bowel obstruction. There are numer ous large bowel diverticula. No diverticulitis. The lumbar vertebrae have fairly normal spacing and alignment. Posterior elements are intact. No comp ression fracture. The bony pelvis is intact. The hip joints appear intact. IMPRESSION: There is colonic diverticulosis without diverticulitis. Normal appendix. No evidence of renal stone or obstruction. No adverse change compared to old exam. T here is clearing of the inflammatory changes of the sigmoid colon compared to old exam.
[2022-08-04 22:32] VITALS: BP 140/79; PULSE 66; RESP 16; TEMP 98.2
== END 2022-08-04 22:33 | disposition home or self-care (01) ==
LOC: EC 20:42
DX: R10.32 Left lower quadrant pain (principal); G47.30 Sleep apnea, unspecified; K21.9 Gastro-esophageal reflux disease without esophagitis; Z88.0 Allergy status to penicillin; Z88.1 Allergy status to other antibiotic agents; Z88.6 Allergy status to analgesic agent; Z87.891 Personal history of nicotine dependence
CPT/HCPCS: 36415; 74176; 80053; 82150; 83690; 85025; 99284

== ENCOUNTER 2023-02-16 12:08 | Emergency (ER) | payer MEDICARE ==
[2023-02-16 12:52] VITALS: BP 105/73; PULSE 78; RESP 18; TEMP 98
--- NOTE | 2023-02-16 13:59 | ED ---
General Adult HPI - General Chief complaint: Weakness Stated complaint: Med Reaction Time Seen by Provider: 02/16/23 13:32 Source: patient, RN notes reviewed, old records reviewed Mode of arrival: ambulatory Limitations: no limitations - History of Present Illness Initial comments: 67-year-old male presenting for evaluation of fatigue. Patient has been on rectal steroids. He read the drug insert labile which did report that fatigue and weakness was a potential side effect. He states he discontinued this medication this morning and states he artery feels better. He denies palpitations. Denies chest pain. Denies abdominal pain. Denies fever or vomiting. - Related Data Home Medications Medication Instructions Recorded Confirmed Ubidecarenone [Co Q-10] 100 mg PO DAILY 01/18/17 04/25/22 Vitamin B Complex 1 cap PO DAILY 01/18/17 04/25/22 Magnesium 200 mg PO DAILY 07/28/20 04/25/22 Cholecalciferol [Vitamin D3 (25 50 mcg PO DAILY 11/25/21 04/25/22 Mcg = 1000 Iu)] Entyvio 1 dose IV Q60D 11/25/21 04/25/22 Mesalamine [Canasa] 1,000 mg RECTAL DIRECTED PRN 04/25/22 04/25/22 Allergies Allergy/AdvReac Type Severity Reaction Status Date / Time erythromycin base AdvReac Severe Nausea, Verified 02/16/23 12:49 Flare up of colitis with blood in stool amoxicillin [From Augmentin] AdvReac Flare up Verified 02/16/23 12:49 of colitis-with blood in stool clavulanic acid AdvReac Flare up Verified 02/16/23 12:49 [From Augmentin] of colitis-with blood in stool NSAIDS (Non-Steroidal AdvReac Flare up Verified 02/16/23 12:49 Anti-Inflamma of colitis-with blood in stool Review of Systems ROS Statement: Those systems with pertinent positive or pertinent negative responses have been documented in the HPI. ROS Other: All systems not noted in ROS Statement are negative. Past Medical History Past Medical History: Asthma, Cancer, GERD/Reflux Additional Past Medical History / Comment(s): HX OF SHINGLES 2013, exercise induced Asthma, Migraines, Basal cell cancer on nose 2019, Rosacea, DIVERTICULOSIS, COLITIS w/ blood in stools. ? sleep apnea, seeing Dr in near future. gets up several times a night to use bathroom History of Any Multi-Drug Resistant Organisms: None Reported Past Surgical History: Hernia Repair, Orthopedic Surgery Additional Past Surgical History / Comment(s): LT KNEE SURGERY LIGAMENT REPAIR, DESTIN ING HERNIAS, EGD, COLONOSCOPY'S x 5 BONE SPUR REMOVED FROM RT GREAT TOE, LT ARM MUCSLE BX. Past Anesthesia/Blood Transfusion Reactions: Postoperative Nausea & Vomiting (PONV) Additional Past Anesthesia/Blood Transfusion Reaction / Comment(s): PONV in 1970's x1. Past Psychological History: No Psychological Hx Reported Smoking Status: Former smoker Past Alcohol Use History: None Reported Past Drug Use History: None Reported - Past Family History Brother(s) Family Medical History: Cancer Additional Family Medical History / Comment(s): SKIN & PROSTATE CANCER. Father Family Medical History: Dementia Additional Family Medical History / Comment(s): ALZHEIMERS Mother Family Medical History: Congestive Heart Failure (CHF) General Exam Limitations: no limitations General appearance: alert, in no apparent distress Head exam: Present: atraumatic, normocephalic Eye exam: Present: normal appearance, PERRL ENT exam: Present: normal exam Neck exam: Present: normal inspection. Absent: tenderness, meningismus Respiratory exam: Present: normal lung sounds bilaterally. Absent: respiratory distress, wheezes Cardiovascular Exam: Present: regular rate, normal rhythm GI/Abdominal exam: Present: soft. Absent: distended, tenderness, guarding Extremities exam: Present: normal inspection, normal capillary refill. Absent: pedal edema Neurological exam: Present: alert, oriented X3, CN II-XII intact. Absent: motor sensory deficit Psychiatric exam: Present: normal affect, normal mood Skin exam: Present: warm, dry, intact. Absent: cyanosis, diaphoretic Course Vital Signs 02/16/23 12:49 Temperature 98 F Pulse Rate 78 Respiratory 18 Rate Blood Pressure 105/73 O2 Sat by Pulse 94 L Oximetry Medical Decision Making - Medical Decision Making Was pt. sent in by a medical professional or institution (, PA, COMMISSIONING SPECIALIST, urgent care, hospital, or alf...) When possible be specific @ -No Did you speak to anyone other than the patient for history (EMS, parent, family, police, friend...)? What history was obtained from this source @ -No Did you review nursing and triage notes (agree or disagree)? Why? @ -I reviewed and agree with nursing and triage notes Were old charts reviewed (outside hosp., previous admission, EMS record, old EKG, old radiological studies, urgent care reports/EKG's, alf records)? Report findings @ -No old charts were reviewed Differential Diagnosis (chest pain, altered mental status, abdominal pain women, abdominal pain men, vaginal bleeding, weakness, fever, dyspnea, syncope, headache, dizziness, GI bleed, back pain, seizure, CVA, palpatations, mental health, musculoskeletal)? @ -Differential Weakness: Hypoglycemia, shock, sepsis, hyponatremia, anemia, infection, CO, ETOH, adverse medicine reaction, overdose, stroke, this is not meant to be an all-inclusive list. EKG interpreted by me (3pts min.). @ -As above X-rays interpreted by me (1pt min.). @ -None done CT interpreted by me (1pt min.). @ -None done U/S interpreted by me (1pt. min.). @ -None done What testing was considered but not performed or refused? (CT, X-rays, U/S, labs)? Why? @ -None What meds were considered but not given or refused? Why? @ -None Did you discuss the management of the patient with other professionals (professionals i.e. , PA, COMMISSIONING SPECIALIST, lab, RT, psych nurse, oncology social work, laborer beam house, teacher, title officer, mental health case manager)? Give summary @ -No Was smoking cessation discussed for >3mins.? @ -No Was critical care preformed (if so, how long)? @ -No Were there social determinants of health that impacted care today? How? (Homelessness, low income, unemployed, alcoholism, drug addiction, transportation, low edu. Level, literacy, decrease access to med. care, long term, rehab)? @ -No Was there de-escalation of care discussed even if they declined (Discuss DNR or withdrawal of care, Hospice)? DNR status @ -No What co-morbidities impacted this encounter? (DM, HTN, Smoking, COPD, CAD, Cancer, CVA, ARF, Chemo, Hep., AIDS, mental health diagnosis, sleep apnea, morbid obesity)? @Colitis Was patient admitted / discharged? Hospital course, mention meds given and route, prescriptions, significant lab abnormalities, going to OR and other pertinent info. @ -15-year-old male with fatigue, concern that this could be related to his steroid use. Patient is otherwise well-appearing, has stable vitals. He states that his symptoms are somewhat improved today but he felt as though he should get checked out. His physical exam is unremarkable. I did obtain laboratory testing including CBC, CMP and urinalysis. This is unremarkable. Patient reassured. He's given return parameters and will follow-up with his primary care physician. Undiagnosed new problem with uncertain prognosis? @ -No Drug Therapy requiring intensive monitoring for toxicity (Heparin, Nitro, Insulin, Cardizem)? @ -No Were any procedures done? @ -No Diagnosis/symptom? @ -[Fatigue Acute, or Chronic, or Acute on Chronic? @ -[Acute Uncomplicated (without systemic symptoms) or Complicated (systemic symptoms)? @ -default Side effects of treatment? @ -No Exacerbation, Progression, or Severe Exacerbation? @ -No Poses a threat to life or bodily function? How? (Chest pain, [place], [place], pneumonia, PE, COPD, DKA, ARF, appy, cholecystitis, CVA, Diverticulitis, Homicidal, Suicidal, threat to staff... and all critical care pts) @ -[Low risk at this time - Lab Data Result diagrams: 02/16/23 13:54 Lab Results 02/16/23 Range/Units 13:54 WBC 6.1 (3.8-10.6) k/uL RBC 4.89 (4.30-5.90) m/uL Hgb 16.1 (13.0-17.5) gm/dL Hct 46.7 (39.0-53.0) % MCV 95.4 (80.0-100.0) fL MCH 32.9 (25.0-35.0) pg MCHC 34.5 (31.0-37.0) g/dL RDW 12.3 (11.5-15.5) % Plt Count 166 (150-450) k/uL MPV 8.7 Neutrophils % 72 % Lymphocytes % 16 % Monocytes % 8 % Eosinophils % 2 % Basophils % 0 % Neutrophils # 4.4 (1.3-7.7) k/uL Lymphocytes # 1.0 (1.0-4.8) k/uL Monocytes # 0.5 (0-1.0) k/uL Eosinophils # 0.1 (0-0.7) k/uL Basophils # 0.0 (0-0.2) k/uL Disposition Clinical Impression: Fatigue Disposition: HOME SELF-CARE Condition: Fair Instructions (If sedation given, give patient instructions): Fatigue (ED) Is patient prescribed a controlled substance at d/c from ED?: No Referrals: Brandi Nelson MD [Primary Care Provider] - 1-2 days Time of Disposition: 15:05
[2023-02-16 14:34] LABS: Basophils % (A) 0 %; Eosinophils # (A) 0.1 k/uL (0-0.7); Eosinophils % (A) 2 %; HCT 46.7 % (39.0-53.0); HGB 16.1 gm/dL (13.0-17.5); Lymphocytes % (A) 16 %; MCH 32.9 pg (25.0-35.0); MCHC 34.5 g/dL (31.0-37.0); MCV 95.4 fL (80.0-100.0); Mean Platelet Volume 8.7; Monocytes # (A) 0.5 k/uL (0-1.0); Monocytes % (A) 8 %; Neutrophils # (A) 4.4 k/uL (1.3-7.7); Neutrophils % (A) 72 %; Platelet Count 166 k/uL (150-450); RBC 4.89 m/uL (4.30-5.90); RDW 12.3 % (11.5-15.5); WBC 6.1 k/uL (3.8-10.6)
[2023-02-16 14:47] LABS: ALT 23 U/L (4-49); AST 27 U/L (17-59); African American GFR (CKD) >90 (>60 ml/min/1.73 sqM); Albumin 3.9 g/dL (3.5-5.0); Alkaline Phosphatase 75 U/L (38-126); Anion Gap 7 mmol/L; Blood Urea Nitrogen 13 mg/dL (9-20); Carbon Dioxide 24 mmol/L (22-30); Chloride 107 mmol/L (98-107); Glucose 65 mg/dL (74-99); Non-African American GFR(CKD) 88 (>60 ml/min/1.73 sqM); Potassium 4.5 mmol/L (3.5-5.1); Sodium 138 mmol/L (137-145); Total Bilirubin 0.6 mg/dL (0.2-1.3)
[2023-02-16 15:02] LABS: Bilirubin,Urine Negative (Negative); Blood,Urine Negative (Negative); Color,Urine Light Yellow; Glucose,Urine (UA) Negative (Negative); Ketones,Urine Negative (Negative); Leukocyte Esterase,Urine Small (Negative); Nitrite,Urine Negative (Negative); PH, Urine 6.5 (5.0-8.0); Protein,Urine Negative (Negative); Specific Gravity,Urine 1.015 (1.001-1.035); Urobilinogen,Urine <0.2 mg/dL (<2.0)
[2023-02-16 15:09] LABS: RBC,Urine 1 /hpf (0-5); WBC,Urine 2 /hpf (0-5)
[2023-02-19 08:32] LABS: Appearance,Urine Clear (Clear)
== END 2023-02-16 15:37 | disposition home or self-care (01) ==
LOC: EC 12:08
DX: R53.83 Other fatigue (principal); G47.30 Sleep apnea, unspecified; J45.909 Unspecified asthma, uncomplicated; Z87.891 Personal history of nicotine dependence; Z88.0 Allergy status to penicillin; Z88.1 Allergy status to other antibiotic agents; Z88.6 Allergy status to analgesic agent; Z88.8 Allergy status to other drugs, medicaments and biological substances
CPT/HCPCS: 36415; 80053; 81001; 85025; 99284

== ENCOUNTER → 2023-02-27 | Outpatient (CLI) | payer MEDICARE ==
[2023-02-28 12:28] LABS: Zinc, Serum 64 ug/dL (60-130)
== END | disposition home or self-care (01) ==
LOC: LABWHC1 15:57
PROVIDERS: ATTEND Internal Medicine
DX: E50.0 Vitamin A deficiency with conjunctival xerosis (principal); E56.0 Deficiency of vitamin E; E56.1 Deficiency of vitamin K; E60 Dietary zinc deficiency
CPT/HCPCS: 36415; 84446; 84590; 84597; 84630

== ENCOUNTER 2023-03-09 17:18 | Emergency (ER) | payer MEDICARE ==
[2023-03-09] MEDS ORDERED: SODIUM CHLORIDE 0.9% 1,000 ML IV STA (17:40)
--- NOTE | 2023-03-09 18:00 | ED ---
Arrhythmia/Palpitations HPI - General Chief Complaint: Arrhythmia/Palpitations Stated Complaint: SOB/Chest pain Time Seen by Provider: 03/09/23 17:40 Source: patient, RN notes reviewed, old records reviewed Mode of arrival: ambulatory Limitations: no limitations - History of Present Illness Initial Comments: This is a 59-year-old male to the emergency department today for evaluation. Patient states he is a picture of health. He states that he has had a Heart catheterization with 2 years. No pain no chest pain no shortness of breath patient presents today for palpitations patient states and states sometimes it may be related to dehydration he gets these episodes often. Patient has no chest pain no shortness of breath and symptoms of palpitations have resolved. No change in medications and no other complaints. Patient denies any travel his tory or known sick contacts. No recent change in medications or hospitalizations MD Complaint: rapid heart beat, "heart racing", palpitations -: hour(s) Context: occurred during rest, occurred during exertion Arrhythmia History: other Associated Symptoms: denies other symptoms Treatments Prior to Arrival: other (0) - Related Data Home Medications Medication Instructions Recorded Confirmed Ubidecarenone [Co Q-10] 100 mg PO DAILY 01/18/17 04/25/22 Vitamin B Complex 1 cap PO DAILY 01/18/17 04/25/22 Magnesium 200 mg PO DAILY 07/28/20 04/25/22 Cholecalciferol [Vitamin D3 (25 50 mcg PO DAILY 11/25/21 04/25/22 Mcg = 1000 Iu)] Entyvio 1 dose IV Q60D 11/25/21 04/25/22 Mesalamine [Canasa] 1,000 mg RECTAL DIRECTED PRN 04/25/22 04/25/22 Allergies Allergy/AdvReac Type Severity Reaction Status Date / Time erythromycin base AdvReac Severe Nausea, Verified 03/09/23 17:33 Flare up of colitis with blood in stool amoxicillin [From Augmentin] AdvReac Flare up Verified 03/09/23 17:33 of colitis-with blood in stool clavulanic acid AdvReac Flare up Verified 03/09/23 17:33 [From Augmentin] of colitis-with blood in stool NSAIDS (Non-Steroidal AdvReac Flare up Verified 03/09/23 17:33 Anti-Inflamma of colitis-with blood in stool Review of Systems ROS Statement: Those systems with pertinent positive or pertinent negative responses have been documented in the HPI. ROS Other: All systems not noted in ROS Statement are negative. Past Medical History Past Medical History: Asthma, Cancer, GERD/Reflux Additional Past Medical History / Comment(s): HX OF SHINGLES 2013, exercise induced Asthma, Migraines, Basal cell cancer on nose 2019, Rosacea, DIVERTICULOSIS, COLITIS w/ blood in stools. ? sleep apnea, seeing Dr in near future. gets up several times a night to use bathroom History of Any Multi-Drug Resistant Organisms: None Reported Past Surgical History: Hernia Repair, Orthopedic Surgery Additional Past Surgical History / Comment(s): LT KNEE SURGERY LIGAMENT REPAIR, DESTIN ING HERNIAS, EGD, COLONOSCOPY'S x 5 BONE SPUR REMOVED FROM RT GREAT TOE, LT ARM MUCSLE BX. Past Anesthesia/Blood Transfusion Reactions: Postoperative Nausea & Vomiting (PONV) Additional Past Anesthesia/Blood Transfusion Reaction / Comment(s): PONV in 1970's x1. Past Psychological History: No Psychological Hx Reported Smoking Status: Former smoker Past Alcohol Use History: None Reported Past Drug Use History: None Reported - Past Family History Brother(s) Family Medical History: Cancer Additional Family Medical History / Comment(s): SKIN & PROSTATE CANCER. Father Family Medical History: Dementia Additional Family Medical History / Comment(s): ALZHEIMERS Mother Family Medical History: Congestive Heart Failure (CHF) General Exam Limitations: no limitations General appearance: alert, in no apparent distress Head exam: Present: atraumatic, normocephalic, normal inspection Eye exam: Present: normal appearance, PERRL, EOMI. Absent: scleral icterus, conjunctival injection, periorbital swelling ENT exam: Present: normal exam, mucous membranes moist Neck exam: Present: normal inspection. Absent: tenderness, meningismus, lymphadenopathy Respiratory exam: Present: normal lung sounds bilaterally. Absent: respiratory distress, wheezes, rales, rhonchi, stridor Cardiovascular Exam: Present: regular rate, normal rhythm, normal heart sounds. Absent: systolic murmur, diastolic murmur, rubs, gallop, clicks GI/Abdominal exam: Present: soft, normal bowel sounds. Absent: distended, tenderness, guarding, rebound, rigid Extremities exam: Present: normal inspection, full ROM, normal capillary refill. Absent: tenderness, pedal edema, joint swelling, calf tenderness Back exam: Present: normal inspection Neurological exam: Present: alert, oriented X3, CN II-XII intact Psychiatric exam: Present: normal affect, normal mood Skin exam: Present: warm, dry, intact, normal color. Absent: rash Course Vital Signs 03/09/23 03/09/23 03/09/23 17:29 19:00 19:55 Temperature 98.4 F 97.9 F Pulse Rate 74 61 62 Respiratory 18 16 Rate Blood Pressure 135/93 129/73 O2 Sat by Pulse 95 99 Oximetry - Reevaluation(s) Reevaluation #1: 03/09/23 19:37 Medical records reviewed Reevaluation #2: 03/09/23 19:38 Patient symptoms remain resolved Reevaluation #3: 03/09/23 19:38 Patient informed results questions answered Reevaluation #4: 03/09/23 19:38 Was pt. sent in by a medical professional or institution (, PA, OILER HELPER, urgent care, hospital, or custodial...) When possible be specific @ -no Did you speak to anyone other than the patient for history (EMS, parent, family, police, friend...)? What history was obtained from this source @ -no Did you review nursing and triage notes (agree or disagree)? Why? @ -agree Are old charts reviewed (outside hosp., previous admission, EMS record, old EKG, old radiological studies, urgent care reports/EKG's, custodial records)? Report findings @ -yes Differential Diagnosis (chest pain, altered mental status, abdominal pain women, abdominal pain men, vaginal bleeding, weakness, fever, dyspnea, syncope, headache, dizziness, GI bleed, back pain, seizure, CVA, palpatations, mental health, musculoskeletal)? @ -prior EKG interpreted by me (3pts min.). @ -yes X-rays interpreted by me (1pt min.). @ -no CT interpreted by me (1pt min.). @ -no U/S interpreted by me (1pt. min.). @ -no What testing was considered but not performed or refused? (CT, X-rays, U/S, labs)? Why? @ -none What meds were considered but not given or refused? Why? @ -none Did you discuss the management of the patient with other professionals (professionals i.e. , PA, OILER HELPER, lab, RT, psych nurse, social media strategist, bench carpenter, teacher, civilian jail officer, hospice case manager)? Give summary @ -no Was smoking cessation discussed for >3mins.? @ -no Was critical care preformed (if so, how long)? @ -no Were there social determinants of health that impacted care today? How? (Homelessness, low income, unemployed, alcoholism, drug addiction, transportation, low edu. Level, literacy, decrease access to med. care, fci, rehab)? @ -none Was there de-escalation of care discussed even if they declined (Discuss DNR or withdrawal of care, Hospice)? DNR status @ -no What co-morbidities impacted this encounter? (DM, HTN, Smoking, COPD, CAD, Cancer, CVA, ARF, Chemo, Hep., AIDS, mental health diagnosis, sleep apnea, morbid obesity)? @ -none Was patient admitted / discharged? Hospital course, mention meds given and route, prescriptions, significant lab abnormalities, going to OR and other pertinent info. @ - 67 male to the ER for evaluation patient presents today for evaluation of palpitations significant. Patient has no palpitations here in the ER no arrhythmia labs are normal EKG is normal patient feels well can be discharged home, currently asymptomatic Discharge Undiagnosed new problem with uncertain prognosis? @ -no Drug Therapy requiring intensive monitoring for toxicity (Heparin, Nitro, Insulin, Cardizem)? @ -no Were any procedures done? @ -no Diagnosis/symptom? @ -Palpitations and tachycardia Acute, or Chronic, or Acute on Chronic? @ -Acute Uncomplicated (without systemic symptoms) or Complicated (systemic symptoms)? @ -Complicated Side effects of treatment? @ -no Exacerbation, Progression, or Severe Exacerbation? @ -exacerbation Poses a threat to life or bodily function? How? (Chest pain, [place], [place], pneumonia, PE, COPD, DKA, ARF, appy, cholecystitis, CVA, Diverticulitis, Homicidal, Suicidal, threat to staff... and all critical care pts) @ -yes with significant arrhythmia Reevaluation #5: 03/09/23 19:38 Differential Palpitations Ventricular arrhythmias, atrial arrhythmias, myocardial infarction, anemia, thyrotoxicosis, electrolyte imbalance, hypokalemia, pulmonary embolism, pulmonary disease, drugs, alcohol, anxiety, stress.... This is not meant to be an all-inclusive list. EKG Findings - EKG Comments: EKG Findings:: EKG shows sinus 63 NM 196 QRS 96 QTC 375 - EKG Results: EKG: interpreted by АНДРЕЙ Medical Decision Making - Medical Decision Making 67 male to the ER for evaluation patient presents today for evaluation of palpit ations significant. Patient has no palpitations here in the ER no arrhythmia labs are normal EKG is normal patient feels well can be discharged home, currently asymptomatic - Lab Data Result diagrams: 03/09/23 17:43 03/09/23 17:43 Lab Results 03/09/23 03/09/23 03/09/23 Range/Units 17:43 17:43 17:43 WBC 6.2 (3.8-10.6) k/uL RBC 4.91 (4.30-5.90) m/uL Hgb 16.1 (13.0-17.5) gm/dL Hct 47.1 (39.0-53.0) % MCV 96.0 (80.0-100.0) fL MCH 32.7 (25.0-35.0) pg MCHC 34.1 (31.0-37.0) g/dL RDW 12.7 (11.5-15.5) % Plt Count 151 (150-450) k/uL MPV 8.6 Neutrophils % 66 % Lymphocytes % 23 % Monocytes % 6 % Eosinophils % 2 % Basophils % 0 % Neutrophils # 4.1 (1.3-7.7) k/uL Lymphocytes # 1.4 (1.0-4.8) k/uL Monocytes # 0.3 (0-1.0) k/uL Eosinophils # 0.1 (0-0.7) k/uL Basophils # 0.0 (0-0.2) k/uL PT 10.8 (9.0-12.0) sec INR 1.0 (<1.2) APTT 25.4 (22.0-30.0) sec Sodium 138 (137-145) mmol/L Potassium 4.3 (3.5-5.1) mmol/L Chloride 108 H (98-107) mmol/L Carbon Dioxide 26 (22-30) mmol/L Anion Gap 4 mmol/L BUN 18 (9-20) mg/dL Creatinine 0.97 (0.66-1.25) mg/dL Est GFR (CKD-EPI)AfAm >90 (>60 ml/min/1.73 sqM) Est GFR (CKD-EPI)NonAf 81 (>60 ml/min/1.73 sqM) Glucose 88 (74-99) mg/dL Plasma Lactic Acid Josh (0.7-2.0) mmol/L Calcium 8.7 (8.4-10.2) mg/dL Phosphorus 3.7 (2.5-4.5) mg/dL Magnesium 2.4 H (1.6-2.3) mg/dL Total Bilirubin 0.5 (0.2-1.3) mg/dL AST 24 (17-59) U/L ALT 21 (4-49) U/L Alkaline Phosphatase 66 (38-126) U/L Troponin I (0.000-0.034) ng/mL Total Protein 6.7 (6.3-8.2) g/dL Albumin 3.9 (3.5-5.0) g/dL TSH 2.930 (0.465-4.680) mIU/L 03/09/23 03/09/23 Range/Units 17:43 17:43 WBC (3.8-10.6) k/uL RBC (4.30-5.90) m/uL Hgb (13.0-17.5) gm/dL Hct (39.0-53.0) % MCV (80.0-100.0) fL MCH (25.0-35.0) pg MCHC (31.0-37.0) g/dL RDW (11.5-15.5) % Plt Count (150-450) k/uL MPV Neutrophils % % Lymphocytes % % Monocytes % % Eosinophils % % Basophils % % Neutrophils # (1.3-7.7) k/uL Lymphocytes # (1.0-4.8) k/uL Monocytes # (0-1.0) k/uL Eosinophils # (0-0.7) k/uL Basophils # (0-0.2) k/uL PT (9.0-12.0) sec INR (<1.2) APTT (22.0-30.0) sec Sodium (137-145) mmol/L Potassium (3.5-5.1) mmol/L Chloride (98-107) mmol/L Carbon Dioxide (22-30) mmol/L Anion Gap mmol/L BUN (9-20) mg/dL Creatinine (0.66-1.25) mg/dL Est GFR (CKD-EPI)AfAm (>60 ml/min/1.73 sqM) Est GFR (CKD-EPI)NonAf (>60 ml/min/1.73 sqM) Glucose (74-99) mg/dL Plasma Lactic Acid Josh 0.9 (0.7-2.0) mmol/L Calcium (8.4-10.2) mg/dL Phosphorus (2.5-4.5) mg/dL Magnesium (1.6-2.3) mg/dL Total Bilirubin (0.2-1.3) mg/dL AST (17-59) U/L ALT (4-49) U/L Alkaline Phosphatase (38-126) U/L Troponin I <0.012 (0.000-0.034) ng/mL Total Protein (6.3-8.2) g/dL Albumin (3.5-5.0) g/dL TSH (0.465-4.680) mIU/L - EKG Data -: EKG Interpreted by Me Disposition Clinical Impression: Palpitations, Tachycardia Disposition: HOME SELF-CARE Condition: Good Instructions (If sedation given, give patient instructions): Heart Palpitations (ED) Is patient prescribed a controlled substance at d/c from ED?: No Referrals: Brandi Nelson MD [Primary Care Provider] - 1-2 days Time of Disposition: 19:35
[2023-03-09 18:02] LABS: Basophils % (A) 0 %; Eosinophils # (A) 0.1 k/uL (0-0.7); Eosinophils % (A) 2 %; HCT 47.1 % (39.0-53.0); HGB 16.1 gm/dL (13.0-17.5); Lymphocytes # (A) 1.4 k/uL (1.0-4.8); Lymphocytes % (A) 23 %; MCH 32.7 pg (25.0-35.0); MCHC 34.1 g/dL (31.0-37.0); Mean Platelet Volume 8.6; Monocytes # (A) 0.3 k/uL (0-1.0); Monocytes % (A) 6 %; Neutrophils # (A) 4.1 k/uL (1.3-7.7); Neutrophils % (A) 66 %; Platelet Count 151 k/uL (150-450); RBC 4.91 m/uL (4.30-5.90); RDW 12.7 % (11.5-15.5); WBC 6.2 k/uL (3.8-10.6)
[2023-03-09 18:25] LABS: ALT 21 U/L (4-49); AST 24 U/L (17-59); African American GFR (CKD) >90 (>60 ml/min/1.73 sqM); Albumin 3.9 g/dL (3.5-5.0); Alkaline Phosphatase 66 U/L (38-126); Anion Gap 4 mmol/L; Blood Urea Nitrogen 18 mg/dL (9-20); Calcium 8.7 mg/dL (8.4-10.2); Carbon Dioxide 26 mmol/L (22-30); Chloride 108 mmol/L (98-107); Glucose 88 mg/dL (74-99); Magnesium 2.4 mg/dL (1.6-2.3); Non-African American GFR(CKD) 81 (>60 ml/min/1.73 sqM); Phosphorus 3.7 mg/dL (2.5-4.5); Potassium 4.3 mmol/L (3.5-5.1); Sodium 138 mmol/L (137-145); Total Bilirubin 0.5 mg/dL (0.2-1.3); Total Protein 6.7 g/dL (6.3-8.2)
[2023-03-09 18:28] LABS: Partial Thromboplastin Time 25.4 sec (22.0-30.0); Prothrombin Time 10.8 sec (9.0-12.0)
[2023-03-09 19:57] VITALS: BP 129/73; PULSE 62; RESP 16; TEMP 97.9
== END 2023-03-09 20:01 | disposition home or self-care (01) ==
LOC: EC 17:18
DX: R00.2 Palpitations (principal); R00.0 Tachycardia, unspecified; G47.30 Sleep apnea, unspecified; J45.909 Unspecified asthma, uncomplicated; Z87.891 Personal history of nicotine dependence; Z88.0 Allergy status to penicillin; Z88.1 Allergy status to other antibiotic agents; Z88.6 Allergy status to analgesic agent; Z95.9 Presence of cardiac and vascular implant and graft, unspecified
CPT/HCPCS: 36415; 80053; 83605; 83735; 84100; 84443; 84484; 85025; 85610; 85730; 93005; 96360; 99285

== ENCOUNTER 2023-04-29 08:41 | Emergency (ER) | payer MEDICARE ==
[2023-04-29 09:39] LABS: Basophils % (A) 0 %; Eosinophils # (A) 0.1 k/uL (0-0.7); Eosinophils % (A) 2 %; HCT 46.5 % (39.0-53.0); HGB 15.6 gm/dL (13.0-17.5); Lymphocytes # (A) 0.9 k/uL (1.0-4.8); Lymphocytes % (A) 15 %; MCH 32.4 pg (25.0-35.0); MCHC 33.5 g/dL (31.0-37.0); MCV 96.6 fL (80.0-100.0); Mean Platelet Volume 8.3; Monocytes # (A) 0.3 k/uL (0-1.0); Monocytes % (A) 6 %; Neutrophils # (A) 4.6 k/uL (1.3-7.7); Neutrophils % (A) 76 %; Platelet Count 165 k/uL (150-450); RBC 4.81 m/uL (4.30-5.90); RDW 12.8 % (11.5-15.5)
[2023-04-29 09:55] LABS: ALT 21 U/L (4-49); AST 23 U/L (17-59); African American GFR (CKD) >90 (>60 ml/min/1.73 sqM); Albumin 3.7 g/dL (3.5-5.0); Alkaline Phosphatase 61 U/L (38-126); Amylase 44 U/L (30-110); Anion Gap 6 mmol/L; Blood Urea Nitrogen 14 mg/dL (9-20); Calcium 9.1 mg/dL (8.4-10.2); Carbon Dioxide 26 mmol/L (22-30); Chloride 108 mmol/L (98-107); Glucose 139 mg/dL (74-99); Lipase 66 U/L (23-300); Non-African American GFR(CKD) >90 (>60 ml/min/1.73 sqM); Potassium 3.8 mmol/L (3.5-5.1); Sodium 140 mmol/L (137-145); Total Bilirubin 0.8 mg/dL (0.2-1.3); Total Protein 6.4 g/dL (6.3-8.2)
--- NOTE | 2023-04-29 10:18 | ED ---
Abdominal Pain HPI - General Chief Complaint: Abdominal Pain Stated Complaint: Abd Pain Time Seen by Provider: 04/29/23 09:09 Source: patient, RN notes reviewed Mode of arrival: ambulatory Limitations: no limitations - History of Present Illness Initial Comments: This is a 67-year-old male who presents to the emergency department for abdominal pain that has been increasing over the last few days. This starts in the middle of his abdomen and goes into his sides. Reports a history of ulcerative colitis and wonders if this may be a flareup. He has not had a flare up in a while, but states that this feels similar. He initially had constipation, and he took Dulcolax, and later developed diarrhea. He wonders if the Dulcolax may have also exacerbated the colitis. He did also take a dose of mesalamine, however this did not offer any improvement. He has had some nausea but no vomiting. Also reports bright red rectal bleeding, however he states that he always has this from the colitis. His largest concern is making sure that he does not have a bowel perforation. He does follow with Dr. Ayala [facility], but has not required any recent treatment and he is not on any maintenance medication. Denies any fevers, chills, sore throat, cough, dyspnea, chest pain, palpitations, vomiting, back pain, or headaches. MD Complaint: abdominal pain - Related Data Home Medications Medication Instructions Recorded Confirmed Ubidecarenone [Co Q-10] 100 mg PO DAILY 01/18/17 04/25/22 Vitamin B Complex 1 cap PO DAILY 01/18/17 04/25/22 Magnesium 200 mg PO DAILY 07/28/20 04/25/22 Cholecalciferol [Vitamin D3 (25 50 mcg PO DAILY 11/25/21 04/25/22 Mcg = 1000 Iu)] Entyvio 1 dose IV Q60D 11/25/21 04/25/22 Mesalamine [Canasa] 1,000 mg RECTAL DIRECTED PRN 04/25/22 04/25/22 Allergies Allergy/AdvReac Type Severity Reaction Status Date / Time erythromycin base AdvReac Severe Nausea, Verified 04/29/23 08:49 Flare up of colitis with blood in stool amoxicillin [From Augmentin] AdvReac Flare up Verified 04/29/23 08:49 of colitis-with blood in stool clavulanic acid AdvReac Flare up Verified 04/29/23 08:49 [From Augmentin] of colitis-with blood in stool NSAIDS (Non-Steroidal AdvReac Flare up Verified 04/29/23 08:49 Anti-Inflamma of colitis-with blood in stool Review of Systems ROS Statement: Those systems with pertinent positive or pertinent negative responses have been documented in the HPI. ROS Other: All systems not noted in ROS Statement are negative. Past Medical History Past Medical History: Asthma, Cancer, GERD/Reflux Additional Past Medical History / Comment(s): HX OF SHINGLES 2013, exercise induced Asthma, Migraines, Basal cell cancer on nose 2019, Rosacea, DIVERTICULOSIS, COLITIS w/ blood in stools. ? sleep apnea, seeing Dr in near future. gets up several times a night to use bathroom History of Any Multi-Drug Resistant Organisms: None Reported Past Surgical History: Hernia Repair, Orthopedic Surgery Additional Past Surgical History / Comment(s): LT KNEE SURGERY LIGAMENT REPAIR, DESTIN ING HERNIAS, EGD, COLONOSCOPY'S x 5 BONE SPUR REMOVED FROM RT GREAT TOE, LT ARM MUCSLE BX. Past Anesthesia/Blood Transfusion Reactions: Postoperative Nausea & Vomiting (PONV) Additional Past Anesthesia/Blood Transfusion Reaction / Comment(s): PONV in 1970's x1. Past Psychological History: No Psychological Hx Reported Smoking Status: Former smoker Past Alcohol Use History: None Reported Past Drug Use History: None Reported - Past Family History Brother(s) Family Medical History: Cancer Additional Family Medical History / Comment(s): SKIN & PROSTATE CANCER. Father Family Medical History: Dementia Additional Family Medical History / Comment(s): ALZHEIMERS Mother Family Medical History: Congestive Heart Failure (CHF) General Exam Limitations: no limitations General appearance: alert, in no apparent distress Head exam: Present: atraumatic, normocephalic, normal inspection Respiratory exam: Present: normal lung sounds bilaterally. Absent: respiratory distress, wheezes, rales, rhonchi, stridor Cardiovascular Exam: Present: regular rate, normal rhythm, normal heart sounds. Absent: systolic murmur, diastolic murmur, rubs, gallop, clicks GI/Abdominal exam: Present: soft, tenderness (diffuse), normal bowel sounds. Absent: distended Neurological exam: Present: alert, oriented X3, CN II-XII intact Psychiatric exam: Present: normal affect, normal mood Skin exam: Present: warm, dry, intact, normal color. Absent: rash Course Vital Signs 04/29/23 04/29/23 04/29/23 08:49 10:51 12:28 Temperature 99 F 97 F L Pulse Rate 99 78 67 Respiratory 118 H 18 18 Rate Blood Pressure 118/69 143/73 130/74 O2 Sat by Pulse 98 96 97 Oximetry Medical Decision Making - Medical Decision Making This is a 67-year-old male who presents to the emergency department for abdominal pain. Was pt. sent in by a medical professional or institution? @ -No Did you speak to anyone other than the patient for history? @ -No Did you review nursing and triage notes? @ -Yes, and I agree, it is accurate with regards to the patient's symptoms. Were old charts reviewed? @ -No Differential Diagnosis? @ -Differential Abdominal Pain Men: Appendicitis, cholecystitis, diverticulosis, ischemic bowel, pancreatitis, hepatitis, UTI, gastroenteritis, AAA, incarcerated hernia, bowel obstruction, constipation, inflammatory bowel, hepatitis, peptic ulcer disease, splenic infarction, perforated viscus, testicular torsion, this is not meant to be an all-inclusive list EKG interpreted by me (3pts min.)? @ Not obtained X-rays interpreted by me (1pt min.)? @ -Not obtained CT interpreted by me (1pt min.)? @ -CT scan of the abdomen and pelvis obtained. My interpretation identifies no evidence of free air. U/S interpreted by me (1pt. min.)? @ -Not obtained What testing was considered but not performed? (CT, X-rays, U/S, labs)? Why? @ -None What meds were considered but not given? Why? @ -None Did you discuss the management of the patient with other professionals? @ -No Did you reconcile home meds? @ -No Was smoking cessation discussed for >3mins.? @ -No Was critical care preformed (if so, how long)? @ -No Were there social determinants of health that impacted care today? How? (Homelessness, low income, unemployed, alcoholism, drug addiction, transpo rtation, low edu. Level, literacy, decrease access to med. care, half-way, rehab)? @ -No Was there de-escalation of care discussed even if they declined? (Discuss DNR or withdrawal of care, Hospice)? @ -No What co-morbidities impacted this encounter? (DM, HTN, Smoking, COPD, CAD, Cancer, CVA, Hep., AIDS, mental health diagnosis, sleep apnea, morbid obesity)? @ -Ulcerative colitis Was patient admitted / discharged? @ -Discharged. Lab work obtained and found to be nonactionable. CT scan of the abdomen and pelvis reveals redundant sigmoid colon with large stool burden and no evidence of obstruction or perforation. Findings reviewed with the patient. He declined any oral pain medication, and states that he is simply happy to know that there is no obstruction or perforation. States that he will contact Dr. Ayala on Sunday regarding his emergency department visit and treatment options. Patient discharged home in stable condition. Undiagnosed new problem with uncertain prognosis? @ -None Drug Therapy requiring intensive monitoring for toxicity (Heparin, Nitro, Insulin, Cardizem)? @ -None Were any procedures done? @ -None Diagnosis/symptom? @ -Abdominal pain Acute, or Chronic, or Acute on Chronic? @ -Acute Uncomplicated (without systemic symptoms) or Complicated (systemic symptoms)? @ -Uncomplicated Side effects of treatment? @ -None Exacerbation, Progression, or Severe Exacerbation] @ -Not applicable Poses a threat to life or bodily function? @ -No Return precautions reviewed in depth, the patient is instructed to return to the emergency department with any new, worsening, or concerning symptoms. Patient verbalized understanding. This case was discussed in detail with the attending ED physician, Dr. Foley. Presentation, findings, and treatment plan discussed in detail as well. - Lab Data Result diagrams: 04/29/23 09:29 04/29/23 09:29 Lab Results 04/29/23 04/29/23 04/29/23 Range/Units 09:29 09:29 09:30 WBC 6.0 (3.8-10.6) k/uL RBC 4.81 (4.30-5.90) m/uL Hgb 15.6 (13.0-17.5) gm/dL Hct 46.5 (39.0-53.0) % MCV 96.6 (80.0-100.0) fL MCH 32.4 (25.0-35.0) pg MCHC 33.5 (31.0-37.0) g/dL RDW 12.8 (11.5-15.5) % Plt Count 165 (150-450) k/uL MPV 8.3 Neutrophils % 76 % Lymphocytes % 15 % Monocytes % 6 % Eosinophils % 2 % Basophils % 0 % Neutrophils # 4.6 (1.3-7.7) k/uL Lymphocytes # 0.9 L (1.0-4.8) k/uL Monocytes # 0.3 (0-1.0) k/uL Eosinophils # 0.1 (0-0.7) k/uL Basophils # 0.0 (0-0.2) k/uL ESR (0-20) mm/Hr Sodium 140 (137-145) mmol/L Potassium 3.8 (3.5-5.1) mmol/L Chloride 108 H (98-107) mmol/L Carbon Dioxide 26 (22-30) mmol/L Anion Gap 6 mmol/L BUN 14 (9-20) mg/dL Creatinine 0.79 (0.66-1.25) mg/dL Est GFR (CKD-EPI)AfAm >90 (>60 ml/min/1.73 sqM) Est GFR (CKD-EPI)NonAf >90 (>60 ml/min/1.73 sqM) Glucose 139 H (74-99) mg/dL Plasma Lactic Acid Josh 1.2 (0.7-2.0) mmol/L Calcium 9.1 (8.4-10.2) mg/dL Total Bilirubin 0.8 (0.2-1.3) mg/dL AST 23 (17-59) U/L ALT 21 (4-49) U/L Alkaline Phosphatase 61 (38-126) U/L C-Reactive Protein (<1.0) mg/dL Total Protein 6.4 (6.3-8.2) g/dL Albumin 3.7 (3.5-5.0) g/dL Amylase 44 (30-110) U/L Lipase 66 (23-300) U/L Urine Color Urine Appearance (Clear) Urine pH (5.0-8.0) Ur Specific [place] (1.001-1.035) Urine Protein (Negative) Urine Glucose (UA) (Negative) Urine Ketones (Negative) Urine Blood (Negative) Urine Nitrite (Negative) Urine Bilirubin (Negative) Urine Urobilinogen (<2.0) mg/dL Ur Leukocyte Esterase (Negative) 04/29/23 04/29/23 04/29/23 Range/Units 09:51 10:00 10:58 WBC (3.8-10.6) k/uL RBC (4.30-5.90) m/uL Hgb (13.0-17.5) gm/dL Hct (39.0-53.0) % MCV (80.0-100.0) fL MCH (25.0-35.0) pg MCHC (31.0-37.0) g/dL RDW (11.5-15.5) % Plt Count (150-450) k/uL MPV Neutrophils % % Lymphocytes % % Monocytes % % Eosinophils % % Basophils % % Neutrophils # (1.3-7.7) k/uL Lymphocytes # (1.0-4.8) k/uL Monocytes # (0-1.0) k/uL Eosinophils # (0-0.7) k/uL Basophils # (0-0.2) k/uL ESR 26 H (0-20) mm/Hr Sodium (137-145) mmol/L Potassium (3.5-5.1) mmol/L Chloride (98-107) mmol/L Carbon Dioxide (22-30) mmol/L Anion Gap mmol/L BUN (9-20) mg/dL Creatinine (0.66-1.25) mg/dL Est GFR (CKD-EPI)AfAm (>60 ml/min/1.73 sqM) Est GFR (CKD-EPI)NonAf (>60 ml/min/1.73 sqM) Glucose (74-99) mg/dL Plasma Lactic Acid Josh (0.7-2.0) mmol/L Calcium (8.4-10.2) mg/dL Total Bilirubin (0.2-1.3) mg/dL AST (17-59) U/L ALT (4-49) U/L Alkaline Phosphatase (38-126) U/L C-Reactive Protein <0.5 (<1.0) mg/dL Total Protein (6.3-8.2) g/dL Albumin (3.5-5.0) g/dL Amylase (30-110) U/L Lipase (23-300) U/L Urine Color Light Yellow Urine Appearance Clear (Clear) Urine pH 7.5 (5.0-8.0) Ur Specific [place] 1.050 H (1.001-1.035) Urine Protein Negative (Negative) Urine Glucose (UA) Negative (Negative) Urine Ketones Negative (Negative) Urine Blood Negative (Negative) Urine Nitrite Negative (Negative) Urine Bilirubin Negative (Negative) Urine Urobilinogen <2.0 (<2.0) mg/dL Ur Leukocyte Esterase Negative (Negative) - Radiology Data Radiology results: report reviewed, image reviewed Disposition Clinical Impression: Abdominal pain, Ulcerative colitis Disposition: HOME SELF-CARE Instructions (If sedation given, give patient instructions): Ulcerative Colitis (ED), Abdominal Pain (ED) Additional Instructions: Return to the emergency department with any new, worsening, or concerning symptoms. Contact your policy director first thing Sunday morning regarding your emergency department visit for further instructions and treatment options. Follow up with your primary care provider in 1-2 days. Is patient prescribed a controlled substance at d/c from ED?: No Referrals: Brandi Nelson MD [Primary Care Provider] - 1-2 days
[2023-04-29 11:02] VITALS: RESP 18
[2023-04-29 11:28] LABS: Appearance,Urine Clear (Clear); Bilirubin,Urine Negative (Negative); Blood,Urine Negative (Negative); Color,Urine Light Yellow; Glucose,Urine (UA) Negative (Negative); Ketones,Urine Negative (Negative); Leukocyte Esterase,Urine Negative (Negative); Nitrite,Urine Negative (Negative); PH, Urine 7.5 (5.0-8.0); Protein,Urine Negative (Negative); Urobilinogen,Urine <2.0 mg/dL (<2.0)
--- NOTE | 2023-04-29 11:36 | CT ---
EXAMINATION TYPE: CT abdomen pelvis w con CT DLP: 1179.7 mGycm, Automated exposure control for dose reduction was used. DATE OF EXAM: 04/29/2023 10:23 AM COMPARISON: CT abdomen pelvis most recent from 08/04/2022 CLINICAL INDICATION:Male, 67 years old with history of abdominal pain, acute, nonlocalized; Abdominal pain with rectal bleeding, history of Ulcerative colitis TECHNIQUE: Axial CT of the abdomen and pelvis. Sagittal and coronal reformats were created on a [employer] workstation. Contrast used:100 ml mL of Isovue 300 with IV Contrast, (none if empty) Oral contrast used: without Oral Contrast (none if empty) FINDINGS: LOWER CHEST: Unremarkable ABDOMEN LIVER: Unremarkable GALLBLADDER AND BILE DUCTS: Unremarkable. PANCREAS: Unremarkable. SPLEEN: Unremarkable. ADRENAL GLANDS: Unremarkable. KIDNEYS AND URETERS: No evidence of hydronephrosis or renal calculus. The ureters are unremarkable. PELVIS BLADDER: Unremarkable REPRODUCTIVE: Prostate is enlarged in size measuring 6.4 cm in transverse dimension. ABDOMEN & PELVIS STOMACH AND BOWEL: No evidence of bowel obstruction. There is redundant sigmoid colon which extends u p into the right upper quadrant. Scattered colonic diverticula present. There is large amount stool w ithin the colon. The appendix is visualized and normal. PERITONEUM/RETROPERITONEUM: No evidence of pneumoperitoneum or free fluid. VASCULATURE: Moderate atherosclerotic calcifications are present throughout the abdominal aorta and i ts branches. No evidence of aortic aneurysm. MUSCULOSKELETAL: No acute osseous abnormalities. Mild disc degeneration changes are present throughou t the thoracolumbar spine. LYMPH NODES: No gross evidence for lymphadenopathy. SOFT TISSUE/ABDOMINAL WALL: Fat-containing inguinal hernias. Fat-containing umbilical hernia. IMPRESSION: 1. No evidence for gastrointestinal hemorrhage. Redundant sigmoid colon with large amount stool thro ughout the colon. No evidence for bowel obstruction. 2. Prostatomegaly correlate serum PSA. 3. Colonic diverticulosis.
[2023-04-29 12:33] VITALS: BP 130/74; PULSE 67; TEMP 97
== END 2023-04-29 12:29 | disposition home or self-care (01) ==
LOC: EC 08:41
DX: K51.90 Ulcerative colitis, unspecified, without complications (principal); J45.909 Unspecified asthma, uncomplicated; K21.9 Gastro-esophageal reflux disease without esophagitis; Z88.0 Allergy status to penicillin; Z88.1 Allergy status to other antibiotic agents; Z88.6 Allergy status to analgesic agent; Z79.899 Other long term (current) drug therapy; Z87.891 Personal history of nicotine dependence
CPT/HCPCS: 36415; 80053; 85652; 82150; 83605; 83690; 85025; 86140; 81003; 74177; 99284; Q9967

== ENCOUNTER 2023-07-25 21:39 | Emergency (ER) | payer MEDICARE ==
--- NOTE | 2023-07-25 21:53 | ED ---
Back Pain HPI - General Source: patient, RN notes reviewed <Yocasta Sterling - Last Filed: 07/25/23 21:52> - History of Present Illness MD Complaint: back pain, back injury -: days(s) Similar Symptoms Previously: Yes Place: home Radiation: none Severity: moderate Severity scale (1-10): 7 Quality: aching Consistency: constant Improves With: none Worsens With: none Associated Symptoms: denies other symptoms Treatments Prior to Arrival: other (0) <Anuj Frank - Last Filed: 08/05/23 17:30> - General Stated Complaint: Lower back Pain, Slipped disc Time Seen by Provider: 07/25/23 21:52 - History of Present Illness Initial Comments: Patient is a 59-year-old male presented ER with chief complaint of back pain. Patient states he was picking up a piece of paper off the ground on and jolted his back. Patient has been reporting extreme pain since making it hard for him to get out of a chair. Has been taking [id number] Tylenol with no relief. Patient has seen multiple chiropractors. Patient denies any red flag symptoms. Patient denies any other complaints. (Yocasta Sterling) This is a 68-year-old male to the emergency department for evaluation of back pain severe back pain and symptoms going on for a few days now with no improvement in symptoms. Patient is able to ambulate, has no loss of bowel or bladder no fevers no IV drug abuse. (Anuj Frank) - Related Data Home Medications Medication Instructions Recorded Confirmed Ubidecarenone [Co Q-10] 100 mg PO DAILY 01/18/17 04/25/22 Vitamin B Complex 1 cap PO DAILY 01/18/17 04/25/22 Magnesium 200 mg PO DAILY 07/28/20 04/25/22 Cholecalciferol [Vitamin D3 (25 50 mcg PO DAILY 11/25/21 04/25/22 Mcg = 1000 Iu)] Entyvio 1 dose IV Q60D 11/25/21 04/25/22 Mesalamine [Canasa] 1,000 mg RECTAL DIRECTED PRN 04/25/22 04/25/22 Allergies Allergy/AdvReac Type Severity Reaction Status Date / Time erythromycin base AdvReac Severe Nausea, Verified 07/25/23 22:03 Flare up of colitis with blood in stool amoxicillin [From Augmentin] AdvReac Flare up Verified 07/25/23 22:03 of colitis-with blood in stool clavulanic acid AdvReac Flare up Verified 07/25/23 22:03 [From Augmentin] of colitis-with blood in stool NSAIDS (Non-Steroidal AdvReac Flare up Verified 07/25/23 22:03 Anti-Inflamma of colitis-with blood in stool Review of Systems ROS Other: All systems not noted in ROS Statement are negative. <Yocasta Sterling - Last Filed: 07/25/23 21:52> ROS Other: All systems not noted in ROS Statement are negative. <Anuj Frank - Last Filed: 08/05/23 17:30> ROS Statement: Those systems with pertinent positive or pertinent negative responses have been documented in the HPI. Past Medical History Past Medical History: Asthma, Cancer, GERD/Reflux Additional Past Medical History / Comment(s): HX OF SHINGLES 2013, exercise induced Asthma, Migraines, Basal cell cancer on nose 2019, Rosacea, DIVERTICULOSIS, COLITIS w/ blood in stools. ? sleep apnea, seeing Dr in near future. gets up several times a night to use bathroom History of Any Multi-Drug Resistant Organisms: None Reported Past Surgical History: Hernia Repair, Orthopedic Surgery Additional Past Surgical History / Comment(s): LT KNEE SURGERY LIGAMENT REPAIR, DESTIN ING HERNIAS, EGD, COLONOSCOPY'S x 5 BONE SPUR REMOVED FROM RT GREAT TOE, LT ARM MUCSLE BX. Past Anesthesia/Blood Transfusion Reactions: Postoperative Nausea & Vomiting (PONV) Additional Past Anesthesia/Blood Transfusion Reaction / Comment(s): PONV in 1970's x1. Past Psychological History: No Psychological Hx Reported Smoking Status: Former smoker Past Alcohol Use History: None Reported Past Drug Use History: None Reported - Past Family History Brother(s) Family Medical History: Cancer Additional Family Medical History / Comment(s): SKIN & PROSTATE CANCER. Father Family Medical History: Dementia Additional Family Medical History / Comment(s): ALZHEIMERS Mother Family Medical History: Congestive Heart Failure (CHF) <Yocasta Sterling - Last Filed: 07/25/23 21:52> General Exam <Yocasta Sterling - Last Filed: 07/25/23 21:52> General appearance: alert, in no apparent distress Head exam: Present: atraumatic, normocephalic, normal inspection Eye exam: Present: normal appearance, PERRL, EOMI. Absent: scleral icterus, conjunctival injection, periorbital swelling ENT exam: Present: normal exam, mucous membranes moist Neck exam: Present: normal inspection. Absent: tenderness, meningismus, lymphadenopathy Respiratory exam: Present: normal lung sounds bilaterally. Absent: respiratory distress, wheezes, rales, rhonchi, stridor Cardiovascular Exam: Present: regular rate, normal rhythm, normal heart sounds. Absent: systolic murmur, diastolic murmur, rubs, gallop, clicks GI/Abdominal exam: Present: soft, normal bowel sounds. Absent: distended, tenderness, guarding, rebound, rigid Extremities exam: Present: normal inspection, full ROM, normal capillary refill. Absent: tenderness, pedal edema, joint swelling, calf tenderness Back exam: Present: normal inspection Neurological exam: Present: alert, oriented X3, CN II-XII intact Psychiatric exam: Present: normal affect, normal mood Skin exam: Present: warm, dry, intact, normal color. Absent: rash <Anuj Frank - Last Filed: 08/05/23 17:30> - General Exam Comments Initial Comments: Visual Physical Exam Vital signs reviewed General: Well-appearing, nontoxic, no acute distress. Head: Normocephalic, atraumatic Eyes: PERRLA, EOMI ENT: Airway patent Chest: Nonlabored breathing Skin: No visual rash, normal skin tone Neuro: Alert and oriented 3 Musculoskeletal: No gross abnormalities (Yocasta Sterling) Course <Anuj Frank - Last Filed: 08/05/23 17:30> Vital Signs 07/25/23 22:03 Temperature 98.4 F Pulse Rate 74 Respiratory 18 Rate Blood Pressure 147/80 O2 Sat by Pulse 97 Oximetry - Reevaluation(s) Reevaluation #1: Medical records reviewed (Anuj Frank) Reevaluation #2: Patient symptoms are improved here in the ER pain is controlled (Kobe Frank) Reevaluation #3: she is informed of results and questions answered (Anuj Frank) Reevaluation #4: 01/04/24 06:18 Was pt. sent in by a medical professional or institution (KYLEIGH Bowman, CARDIOVASCULAR RN, urgent care, hospital, or fdc...) When possible be specific @ -no Did you speak to anyone other than the patient for history (EMS, parent, family, police, friend...)? What history was obtained from this source @ -no Did you review nursing and triage notes (agree or disagree)? Why? @ -agree Are old charts reviewed (outside hosp., previous admission, EMS record, old EKG, old radiological studies, urgent care reports/EKG's, fdc records)? Report findings @ -yes Differential Diagnosis (chest pain, altered mental status, abdominal pain women, abdominal pain men, vaginal bleeding, weakness, fever, dyspnea, syncope, headache, dizziness, GI bleed, back pain, seizure, CVA, palpatations, mental health, musculoskeletal)? @ -prior EKG interpreted by me (3pts min.). @ -no X-rays interpreted by me (1pt min.). @ -yes here for acute disease CT interpreted by me (1pt min.). @ -no U/S interpreted by me (1pt. min.). @ -no What testing was considered but not performed or refused? (CT, X-rays, U/S, labs)? Why? @ -none What meds were considered but not given or refused? Why? @ -none Did you discuss the management of the patient with other professionals (professionals i.e. KYLEIGH Bowman, CARDIOVASCULAR RN, lab, RT, psych nurse, child welfare social worker, trouble shooter, teacher, credit control officer, case liner)? Give summary @ -no Was smoking cessation discussed for >3mins.? @ -no Was critical care preformed (if so, how long)? @ -no Were there social determinants of health that impacted care today? How? (Homelessness, low income, unemployed, alcoholism, drug addiction, transportation, low edu. Level, literacy, decrease access to med. care, alf, rehab)? @ -none Was there de-escalation of care discussed even if they declined (Discuss DNR or withdrawal of care, Hospice)? DNR status @ -no What co-morbidities impacted this encounter? (DM, HTN, Smoking, COPD, CAD, Cancer, CVA, ARF, Chemo, Hep., AIDS, mental health diagnosis, sleep apnea, morbid obesity)? @ -none Was patient admitted / discharged? Hospital course, mention meds given and route, prescriptions, significant lab abnormalities, going to OR and other pertinent info. @ - 68 male to the emergency department for evaluation of back pain today. Back pain is well-controlled here in the ER can be discharged home Discharge Undiagnosed new problem with uncertain prognosis? @ -no Drug Therapy requiring intensive monitoring for toxicity (Heparin, Nitro, Insulin, Cardizem)? @ -no Were any procedures done? @ -no Diagnosis/symptom? @ -Acute on chronic back pain Acute, or Chronic, or Acute on Chronic? @ -Acute Uncomplicated (without systemic symptoms) or Complicated (systemic symptoms)? @ -Complicated Side effects of treatment? @ -no Exacerbation, Progression, or Severe Exacerbation? @ -exacerbation Poses a threat to life or bodily function? How? (Chest pain, [place], SD, pneumonia, PE, COPD, DKA, ARF, appy, cholecystitis, CVA, Diverticulitis, Homicidal, Suici earle, threat to staff... and all critical care pts) @ -yes (Anuj Frank) Reevaluation #5: 07/26/23 06:19 Differential Back Pain: Strain, zoster, cauda equina syndrome, epidural abscess, vertebral osteomyelitis, discitis, fracture, subluxation, disc herniation, DJD, spinal stenosis, dissection, AAA, pancreatitis, peptic ulcer disease, pyelonephritis, kidney stone, this is not meant to be an all-inclusive list. (Anuj Frank) Medical Decision Making <Yocasta Sterling - Last Filed: 07/25/23 21:52> - Radiology Data Radiology results: report reviewed (X-ray LS-spine is negative for acute disease), image reviewed <Anuj Frank - Last Filed: 08/05/23 17:30> - Medical Decision Making I performed the quick note portion of the exam. Electronically signed by Yocasta Sterling PA-C (Yocasta Sterling) 68 male to the emergency department for evaluation of severe back pain. Patient is currently well-controlled back pain able to ambulate without any neurological complaints of findings. Patient can be discharged home (Anuj Frank) Disposition <Yocasta Sterling - Last Filed: 07/25/23 21:52> Is patient prescribed a controlled substance at d/c from ED?: No Time of Disposition: 05:25 <Anuj Frank - Last Filed: 08/05/23 17:30> Clinical Impression: Mechanical back pain, Mid back pain, Lumbar radiculopathy Disposition: HOME SELF-CARE Condition: Good Instructions (If sedation given, give patient instructions): Acute Low Back Pain (ED) Referrals: Brandi Nelson MD [Primary Care Provider] - 1-2 days
[2023-07-25 22:09] VITALS: BP 147/80; PULSE 74; RESP 18; TEMP 98.4
--- NOTE | 2023-07-25 23:37 | XR ---
EXAM: XR Lumbosacral Spine, 2 or 3 Views CLINICAL HISTORY: Pain TECHNIQUE: Frontal and lateral views of the lumbar spine and sacrum. COMPARISON: No relevant prior studies available. FINDINGS: Vertebrae: Maintenance of height of the vertebral bodies. No acute fracture. Normal alignment. Anterior osteophytes at the L2-3 and L3-4 disc levels. Mild facet degenerative changes at L4-5 and L5-S1. Sacrum/coccyx: Unremarkable as visualized. No acute fracture. Disc spaces: No acute abnormality. No significant narrowing. Soft tissues: Unremarkable. IMPRESSION: Mild degenerative changes of the lower lumbar spine.
[2023-07-26] MEDS ORDERED: ACET/COD 300 MG/30 MG STARTER PACK 6 TAB BTL PO STA (05:24)
[2023-07-26] MEDS ORDERED: traMADol 50 MG TAB PO STA (05:24)
[2023-07-26] MEDS ORDERED: CYCLOBENZAPRINE 10MG STARTER 3 TAB BTL PO STA (05:24)
[2023-07-26] MEDS ORDERED: traMADol 50 MG STARTER PACK 3 TAB BTL PO STA (05:24)
[2023-07-26] MEDS ORDERED: Acetaminophen-Codeine 300-30mg TAB PO STA (05:24)
[2023-07-26] MEDS ORDERED: LIDOCAINE 4% PATCH TOPICAL STA (05:24)
== END 2023-07-26 05:37 | disposition home or self-care (01) ==
LOC: EC 21:39
DX: M47.26 Other spondylosis with radiculopathy, lumbar region (principal); J45.909 Unspecified asthma, uncomplicated; Z87.891 Personal history of nicotine dependence; Z88.6 Allergy status to analgesic agent; Z88.8 Allergy status to other drugs, medicaments and biological substances; Z88.0 Allergy status to penicillin; Z88.1 Allergy status to other antibiotic agents
CPT/HCPCS: 72100; 99284

== ENCOUNTER → 2023-08-07 | Outpatient (CLI) | payer MEDICARE ==
--- NOTE | 2023-08-07 13:38 | XR ---
EXAMINATION TYPE: XR cervical spine limited DATE OF EXAM: 08/07/2023 COMPARISON: NONE HISTORY: Neck pain TECHNIQUE: 3 views submitted FINDINGS: There is reversal of the normal cervical lordosis with moderate to severe degenerative disc disease C4-5, C5-6 and C6-C7 with posterior spondylosis. Lung apices are clear. Odontoid is intact. Prevertebral soft tissue structures are within normal limits. IMPRESSION: 1. Moderate to severe degenerative disc disease C4-C7 with reversal of the normal cervical lordosis. Posterior spondylosis may be resulting in foraminal encroachment or canal stenosis consider follow-up MRI.
== END | disposition home or self-care (01) ==
LOC: RADXRMAIN 13:16
PROVIDERS: ATTEND Internal Medicine
DX: M50.321 Other cervical disc degeneration at C4-C5 level (principal); M47.812 Spondylosis without myelopathy or radiculopathy, cervical region
CPT/HCPCS: 72040

== ENCOUNTER → 2023-09-12 | Outpatient (CLI) | payer MEDICARE ==
--- NOTE | 2023-09-12 16:54 | CT ---
EXAMINATION TYPE: CT cervical spine wo con CT DLP: 640 mGycm, Automated exposure control for dose reduction was used. DATE OF EXAM: 09/12/2023 3:57 PM COMPARISON: 08/07/2023. CLINICAL INDICATION:Male, 68 years old with history of M54.12 CERVICAL RADICULOPATHY, neck pain TECHNIQUE: Axial CT images from the skull base to the inferior aspect of T2 we obtained without intra venous contrast. Coronal and sagittal reformatted images were also reviewed. Contrast used: mL of , (if blank None) Oral contrast used: (if blank None) FINDINGS: Fracture: None. Osseous structures: Multilevel degenerative disc disease changes with endplate spurring and disc oste ophyte complex's. Vertebral alignment: Reversal of the normal alignment. Spinal canal/Neural Foramina: Disc osteophyte complexes at C5-C7 with at least mild spinal canal sten osis. Facet joint uncovertebral joint arthropathy scattered throughout the cervical spine with varyin g degrees of neural foraminal stenosis. Neck soft tissues: Prevertebral soft tissues are within normal limits. Other: The airway is patent. The lung apices are clear. IMPRESSION: 1. No evidence of cervical spine fracture. 2. Mild to moderate multilevel degenerative disc disease. Neural foramen appear patent.
== END | disposition home or self-care (01) ==
LOC: RADCTMAIN 15:37
PROVIDERS: ATTEND Physical Medicine & Rehabilitation
DX: M54.12 Radiculopathy, cervical region (principal); R51.9 Headache, unspecified; M50.30 Other cervical disc degeneration, unspecified cervical region
CPT/HCPCS: 72125

== ENCOUNTER 2023-11-04 15:34 | Emergency (ER) | payer MEDICARE ==
[2023-11-04 16:42] VITALS: TEMP 98.2
[2023-11-04 16:59] LABS: Partial Thromboplastin Time 25.5 sec (22.0-30.0); Prothrombin Time 11.2 sec (10.0-12.5)
[2023-11-04 17:39] LABS: ALT 21 U/L (4-49); African American GFR (CKD) 87 (>60 ml/min/1.73 sqM); Albumin 3.9 g/dL (3.5-5.0); Anion Gap 8 mmol/L; Blood Urea Nitrogen 17 mg/dL (9-20); Calcium 9.2 mg/dL (8.4-10.2); Carbon Dioxide 23 mmol/L (22-30); Chloride 108 mmol/L (98-107); Glucose 89 mg/dL (74-99); Non-African American GFR(CKD) 75 (>60 ml/min/1.73 sqM); Sodium 139 mmol/L (137-145); Total Bilirubin 0.7 mg/dL (0.2-1.3); Total Protein 6.8 g/dL (6.3-8.2)
[2023-11-04] MEDS: SODIUM CHLORIDE 0.9% 1,000 ML IV STA (17:39)
[2023-11-04] MEDS: PANTOPRAZOLE 40 MG/10 ML VIAL IVP STA (17:39)
[2023-11-04 17:55] LABS: AST 29 U/L (17-59); Alkaline Phosphatase 69 U/L (38-126); Potassium 4.8 mmol/L (3.5-5.1)
[2023-11-04 18:38] LABS: Basophils # (A) 0.1 k/uL (0-0.2); Basophils % (A) 1 %; Eosinophils # (A) 0.2 k/uL (0-0.7); Eosinophils % (A) 2 %; HCT 51.6 % (39.0-53.0); HGB 17.2 gm/dL (13.0-17.5); Lymphocytes # (A) 1.3 k/uL (1.0-4.8); Lymphocytes % (A) 17 %; MCHC 33.3 g/dL (31.0-37.0); MCV 96.1 fL (80.0-100.0); Mean Platelet Volume 8.6; Monocytes # (A) 0.5 k/uL (0-1.0); Monocytes % (A) 7 %; Neutrophils # (A) 5.6 k/uL (1.3-7.7); Neutrophils % (A) 72 %; Platelet Count 197 k/uL (150-450); RBC 5.36 m/uL (4.30-5.90); RDW 12.4 % (11.5-15.5); WBC 7.7 k/uL (3.8-10.6)
--- NOTE | 2023-11-04 18:45 | ED ---
General Adult HPI - General Chief complaint: GI Bleed Stated complaint: blood in stool Time Seen by Provider: 11/04/23 17:02 Source: patient, RN notes reviewed, old records reviewed Mode of arrival: ambulatory Limitations: no limitations - History of Present Illness Initial comments: Patient is a 68-year-old male with past medical history remarkable for GERD, acid reflux, inflammatory bowel disease. Has a history of chronic back pain as well. Has noticed that for the last week he is having bright red blood per rectum. Has a history of this in the past. Is not on blood thinners. Presents for further evaluation at this time. States he is on chronic medications for it. Has somewhat loose stool lately with the bleeding. Endorses crampy abdominal pain when he has his bowel movements. Presents for further evaluation at this time. No recent antibiotics. No fevers or chills. No chest pain. No coughing. - Related Data Home Medications Medication Instructions Recorded Confirmed Ubidecarenone [Co Q-10] 100 mg PO DAILY 01/18/17 04/25/22 Vitamin B Complex 1 cap PO DAILY 01/18/17 04/25/22 Magnesium 200 mg PO DAILY 07/28/20 04/25/22 Cholecalciferol [Vitamin D3 (25 50 mcg PO DAILY 11/25/21 04/25/22 Mcg = 1000 Iu)] Entyvio 1 dose IV Q60D 11/25/21 04/25/22 Mesalamine [Canasa] 1,000 mg RECTAL DIRECTED PRN 04/25/22 04/25/22 Previous Rx's Medication Instructions Recorded predniSONE 10 mg PO DIRECTED 35 Days #98 11/04/23 tab Allergies Allergy/AdvReac Type Severity Reaction Status Date / Time erythromycin base AdvReac Severe Nausea, Verified 07/25/23 22:03 Flare up of colitis with blood in stool amoxicillin [From Augmentin] AdvReac Flare up Verified 07/25/23 22:03 of colitis-with blood in stool clavulanic acid AdvReac Flare up Verified 07/25/23 22:03 [From Augmentin] of colitis-with blood in stool NSAIDS (Non-Steroidal AdvReac Flare up Verified 07/25/23 22:03 Anti-Inflamma of colitis-with blood in stool Review of Systems ROS Statement: Those systems with pertinent positive or pertinent negative responses have been documented in the HPI. Review of Systems: CONST: Denies fever EYES: Denies blurry vision ENT: Denies nasal congestion C/V: Denies Chest pain RESP: Denies shortness of breath GI: Endorses rectal bleeding : Denies dysuria SKIN: Denies rash. MSK: Denies joint pain. NEURO: Denies headache ROS Other: All systems not noted in ROS Statement are negative. Past Medical History Past Medical History: Asthma, Cancer, GERD/Reflux Additional Past Medical History / Comment(s): HX OF SHINGLES 2013, exercise induced Asthma, Migraines, Basal cell cancer on nose 2019, Rosacea, DIVERTICULOSIS, COLITIS w/ blood in stools. ? sleep apnea, seeing Dr in near future. gets up several times a night to use bathroom History of Any Multi-Drug Resistant Organisms: None Reported Past Surgical History: Hernia Repair, Orthopedic Surgery Additional Past Surgical History / Comment(s): LT KNEE SURGERY LIGAMENT REPAIR, DESTIN ING HERNIAS, EGD, COLONOSCOPY'S x 5 BONE SPUR REMOVED FROM RT GREAT TOE, LT ARM MUCSLE BX. Past Anesthesia/Blood Transfusion Reactions: Postoperative Nausea & Vomiting (PONV) Additional Past Anesthesia/Blood Transfusion Reaction / Comment(s): PONV in 1970's x1. Past Psychological History: No Psychological Hx Reported Smoking Status: Former smoker Past Alcohol Use History: None Reported Past Drug Use History: None Reported - Past Family History Brother(s) Family Medical History: Cancer Additional Family Medical History / Comment(s): SKIN & PROSTATE CANCER. Father Family Medical History: Dementia Additional Family Medical History / Comment(s): ALZHEIMERS Mother Family Medical History: Congestive Heart Failure (CHF) General Exam - General Exam Comments Initial Comments: General: Appears in no acute distress. HEAD: Normal with no signs of head trauma. EYES: PERRLA, EOMI, conjunctiva normal, no discharge. ENT: Hearing grossly intact, normal oropharynx. RESPIRATORY: Clear breath sounds bilaterally. No wheezes, rales, or rhonchi. C/V: Regular rate and rhythm. S1 and S2 auscultated, no edema, peripheral pulses 2+ and intact throughout ABD: Abd is soft, nontender, nondistended. No distention. No guarding. Rectal exam negative for obvious gross blood, possibly small amount of red blood mixed with light brown stool. No dark tarry stool. EXT: Normal range of motion, no obvious deformity SKIN: No rashes or lesions observed on exposed skin. NEURO: Alert and oriented x 4. Cranial nerves II-XII intact. No focal sensory or strength deficits. Limitations: no limitations Course Vital Signs 11/04/23 11/04/23 11/04/23 16:05 17:36 19:15 Temperature 98.2 F Pulse Rate 84 69 70 Respiratory 20 18 16 Rate Blood Pressure 125/70 140/84 134/70 O2 Sat by Pulse 94 L 97 Oximetry 11/04/23 20:38 Temperature Pulse Rate 70 Respiratory 18 Rate Blood Pressure 127/70 O2 Sat by Pulse 96 Oximetry Medical Decision Making - Medical Decision Making Was pt. sent in by a medical professional or institution (, PA, [employer], urgent care, hospital, or [facility]...) When possible be specific @ -No Did you speak to anyone other than the patient for history (EMS, parent, family, police, friend...)? What history was obtained from this source @ -No Did you review nursing and triage notes (agree or disagree)? Why? @ -I reviewed and agree with nursing and triage notes Were old charts reviewed (outside hosp., previous admission, EMS record, old EKG, old radiological studies, urgent care reports/EKG's, [facility] records)? Report findings @ -No old charts were reviewed Differential Diagnosis (chest pain, altered mental status, abdominal pain women, abdominal pain men, vaginal bleeding, weakness, fever, dyspnea, syncope, headach e, dizziness, GI bleed, back pain, seizure, CVA, palpatations, mental health, musculoskeletal)? @ -Differential GI Bleed: Esophageal varices, aortoenteric fistula, Florecita-Burrell, gastritis, peptic ulcer disease, diverticulosis, inflammatory bowel disease, hemorrhoids, fissure, colitis, malignancy, Meckels diverticulum, this is not meant to be an all- inclusive list. EKG interpreted by me (3pts min.). @ -None done X-rays interpreted by me (1pt min.). @ -None done CT interpreted by me (1pt min.). @ -CT shows evidence of uncomplicated ulcerative colitis. U/S interpreted by me (1pt. min.). @ -None done What testing was considered but not performed or refused? (CT, X-rays, U/S, labs)? Why? @ -None What meds were considered but not given or refused? Why? @ -None Did you discuss the management of the patient with other professionals (professionals i.e. , [facility], [employer], lab, RT, psych nurse, criminal justice social worker, language therapist, teacher, supervisor dog license officer, showcase maker)? Give summary @ -No Was smoking cessation discussed for >3mins.? @ -No Was critical care preformed (if so, how long)? @ -No Were there social determinants of health that impacted care today? How? (Homelessness, low income, unemployed, alcoholism, drug addiction, transportation, low edu. Level, literacy, decrease access to med. care, senior living, rehab)? @ -No Was there de-escalation of care discussed even if they declined (Discuss DNR or withdrawal of care, Hospice)? DNR status @ -No What co-morbidities impacted this encounter? (DM, HTN, Smoking, COPD, CAD, Cancer, CVA, ARF, Chemo, Hep., AIDS, mental health diagnosis, sleep apnea, morbid obesity)? @ -None Was patient admitted / discharged? Hospital course, mention meds given and route, prescriptions, significant lab abnormalities, going to OR and other pertinent info. @ -Based on the patient's presentation and physical exam, patient presents emergency department complaining of blood in his stool. Denies any chest pain, shortness of breath. Endorses crampy abdominal pain. Has a history of inflammatory bowel disease, ulcerative colitis. Patient is on blood thinners. We will obtain CTA GI bleed protocol as well as abdominal laboratory studies. No significant gross blood per rectum, mostly brown stool. Positive occult blood on labs. Patient was in agreement with this plan. Patient symptomatically treat with IV fluids as well as IV Protonix. Labs are unremarkable including a normal hemoglobin, normal coags.CT shows uncomplicated ulcerative colitis flare. Patient's laboratory studies unremarkable as directed above. At this time I did offer admission but we both agree that patient appears to be stable enough for discharge home with stable hemoglobin with rectal bleeding for 1 week. He will be initiated on prednisone therapy, 40 mg daily for 2 weeks followed by a taper of 30 mg for 1 week, 20 mg for 1 week, 10 mg for 1 week. I instructed him to follow-up with his GI physician tomorrow morning and return if any worsening symptoms. Patient was in agreement this plan. Vital signs are within acceptable limits. I will provide the patient with a prescription for prednisone. I instructed the patient to follow up with their PCP in the next 1-3 days.. I explained that the patient should return to the emergency department if they experience any worsening symptoms. Strict return precautions were discussed with the patient. The patient expressed understanding of these instructions. I answered all questions that the patient had. The patient was discharged home in good condition with their prescriptions and follow up information. Undiagnosed new problem with uncertain prognosis? @ -No Drug Therapy requiring intensive monitoring for toxicity (Heparin, Nitro, Insulin, Cardizem)? @ -No Were any procedures done? @ -No Diagnosis/symptom? @ -Ulcerative colitis flare, rectal bleeding Acute, or Chronic, or Acute on Chronic? @ -Acute Uncomplicated (without systemic symptoms) or Complicated (systemic symptoms)? @ -Complicated Side effects of treatment? @ -None Exacerbation, Progression, or Severe Exacerbation] @ -No Poses a threat to life or bodily function? @ -Unlikely - Lab Data Result diagrams: 11/04/23 16:15 11/04/23 16:15 Lab Results 11/04/23 11/04/23 11/04/23 Range/Units 16:15 16:15 16:15 WBC 7.7 (3.8-10.6) k/uL RBC 5.36 (4.30-5.90) m/uL Hgb 17.2 (13.0-17.5) gm/dL Hct 51.6 (39.0-53.0) % MCV 96.1 (80.0-100.0) fL MCH 32.0 (25.0-35.0) pg MCHC 33.3 (31.0-37.0) g/dL RDW 12.4 (11.5-15.5) % Plt Count 197 (150-450) k/uL MPV 8.6 Neutrophils % 72 % Lymphocytes % 17 % Monocytes % 7 % Eosinophils % 2 % Basophils % 1 % Neutrophils # 5.6 (1.3-7.7) k/uL Lymphocytes # 1.3 (1.0-4.8) k/uL Monocytes # 0.5 (0-1.0) k/uL Eosinophils # 0.2 (0-0.7) k/uL Basophils # 0.1 (0-0.2) k/uL PT 11.2 (10.0-12.5) sec INR 1.0 (<1.2) APTT 25.5 (22.0-30.0) sec Sodium 139 (137-145) mmol/L Potassium 4.8 (3.5-5.1) mmol/L Chloride 108 H (98-107) mmol/L Carbon Dioxide 23 (22-30) mmol/L Anion Gap 8 mmol/L BUN 17 (9-20) mg/dL Creatinine 1.02 (0.66-1.25) mg/dL Est GFR (CKD-EPI)AfAm 87 (>60 ml/min/1.73 sqM) Est GFR (CKD-EPI)NonAf 75 (>60 ml/min/1.73 sqM) Glucose 89 (74-99) mg/dL Calcium 9.2 (8.4-10.2) mg/dL Total Bilirubin 0.7 (0.2-1.3) mg/dL AST 29 (17-59) U/L ALT 21 (4-49) U/L Alkaline Phosphatase 69 (38-126) U/L Total Protein 6.8 (6.3-8.2) g/dL Albumin 3.9 (3.5-5.0) g/dL Stool Occult Blood (Negative) Blood Type Blood Type Recheck Bld Type Recheck Status Antibody Screen Spec Expiration Date 11/04/23 11/04/23 Range/Units 16:15 18:21 WBC (3.8-10.6) k/uL RBC (4.30-5.90) m/uL Hgb (13.0-17.5) gm/dL Hct (39.0-53.0) % MCV (80.0-100.0) fL MCH (25.0-35.0) pg MCHC (31.0-37.0) g/dL RDW (11.5-15.5) % Plt Count (150-450) k/uL MPV Neutrophils % % Lymphocytes % % Monocytes % % Eosinophils % % Basophils % % Neutrophils # (1.3-7.7) k/uL Lymphocytes # (1.0-4.8) k/uL Monocytes # (0-1.0) k/uL Eosinophils # (0-0.7) k/uL Basophils # (0-0.2) k/uL PT (10.0-12.5) sec INR (<1.2) APTT (22.0-30.0) sec Sodium (137-145) mmol/L Potassium (3.5-5.1) mmol/L Chloride (98-107) mmol/L Carbon Dioxide (22-30) mmol/L Anion Gap mmol/L BUN (9-20) mg/dL Creatinine (0.66-1.25) mg/dL Est GFR (CKD-EPI)AfAm (>60 ml/min/1.73 sqM) Est GFR (CKD-EPI)NonAf (>60 ml/min/1.73 sqM) Glucose (74-99) mg/dL Calcium (8.4-10.2) mg/dL Total Bilirubin (0.2-1.3) mg/dL AST (17-59) U/L ALT (4-49) U/L Alkaline Phosphatase (38-126) U/L Total Protein (6.3-8.2) g/dL Albumin (3.5-5.0) g/dL Stool Occult Blood Positive (Negative) Blood Type A Positive Blood Type Recheck A Pos Bld Type Recheck Status No Antibody Screen NEGATIVE Spec Expiration Date 11/07/20232314 Disposition Clinical Impression: Ulcerative colitis, Rectal bleeding Disposition: HOME SELF-CARE Condition: Good Instructions (If sedation given, give patient instructions): Ulcerative Colitis (ED) Prescriptions: predniSONE 10 mg PO DIRECTED 35 Days #98 tab Is patient prescribed a controlled substance at d/c from ED?: No Referrals: Brandi Nelson MD [Primary Care Provider] - 1-2 days Time of Disposition: 19:55
[2023-11-04 19:17] VITALS: PULSE 70
--- NOTE | 2023-11-04 19:25 | CT ---
EXAMINATION TYPE: CT angio abdomen pelvis CT DLP: 2462.8 mGycm, Automated exposure control for dose reduction was used. DATE OF EXAM: 11/04/2023 6:55 PM COMPARISON: 04/29/2023 CLINICAL INDICATION:Male, 68 years old with history of GI bleed protocol; PHH, blood in stool. hx of ulcerative colitis. TECHNIQUE: Multiple thin slice sub-millimeter images were obtained after administration of contrast. 3-D reconstructed images and maximum intensity projection images were obtained. CT angio abdomen pel vis CT Contrast: Contrast used:100ml mL of Isovue 300 with IV Contrast, Oral contrast used: without Oral Contrast None FINDINGS: LOWER CHEST: No evidence of focal consolidation, pneumothorax or pleural effusion. Stable pleural thi ckening along the diaphragm on the right compared to immediate prior 04/29/2023 LIVER: Unremarkable GALLBLADDER AND BILE DUCTS: Unremarkable. PANCREAS: Unremarkable. SPLEEN: Unremarkable. ADRENAL GLANDS: Unremarkable. KIDNEYS AND URETERS: No evidence of hydronephrosis or renal calculus. The ureters are unremarkable. PELVIS BLADDER: Unremarkable REPRODUCTIVE: Prostate is enlarged in size measuring 6.1 cm in transverse dimension. ABDOMEN & PELVIS STOMACH AND BOWEL: Evaluation of the gastrointestinal tract demonstrates no evidence of high density hemorrhage arterial phase or pooling of blood on delayed phases. No evidence of bowel obstruction. Th ere is circumferential wall thickening extending from the rectum to the transverse colon with kendrick m easuring up to 8 mm in thickness. Scattered colonic diverticula. PERITONEUM: No evidence of pneumoperitoneum or free fluid. VASCULATURE: No evidence of aortic aneurysm. No evidence for dissection or occlusion. No intramural h ematoma on noncontrast imaging. Scattered mild atherosclerotic plaque. MUSCULOSKELETAL: Mild disc degeneration changes are present throughout the thoracolumbar spine. LYMPH NODES: No gross evidence for lymphadenopathy. SOFT TISSUE/ABDOMINAL WALL: Unremarkable IMPRESSION 1. No evidence for gastrointestinal hemorrhage. 2. Sequential wall thickening extending from the rectum to the sigmoid colon findings compatible wit h active ulcerative colitis. 3. Prostatomegaly correlate with serum PSA. 4. Stable thickening of the pleura over the right diaphragm. 5. Clonic diverticulosis.
[2023-11-04] MEDS: predniSONE 20 MG TAB PO STA (20:31)
[2023-11-04 21:09] VITALS: BP 127/70; RESP 18
== END 2023-11-04 20:39 | disposition home or self-care (01) ==
LOC: EC 15:34
DX: K51.911 Ulcerative colitis, unspecified with rectal bleeding (principal); Z88.0 Allergy status to penicillin; Z88.1 Allergy status to other antibiotic agents; Z88.6 Allergy status to analgesic agent; Z87.891 Personal history of nicotine dependence
CPT/HCPCS: 36415; 86900; 86901; 80053; 85025; 85610; 85730; 86850; 82272; 74174; 99285; 96374; 96361 ×3; J7512; C9113; Q9967

== ENCOUNTER → 2023-11-30 | Outpatient (CLI) | payer MEDICARE ==
--- NOTE | 2023-11-30 12:39 | XR ---
EXAMINATION TYPE: XR abdomen 1V DATE OF EXAM: 11/30/2023 COMPARISON: NONE HISTORY: Pain TECHNIQUE: One view abdominal series FINDINGS: The osseous structures are intact. The bowel gas pattern is nonspecific. Moderate stool burden. Mild arthropathy and degenerative change of the spine. Lung bases are clear. IMPRESSION: 1. Nonspecific abdomen. Correlate for constipation.
== END | disposition home or self-care (01) ==
LOC: RADXRMAIN 12:12
PROVIDERS: ATTEND Internal Medicine Gastroenterology
DX: K59.09 Other constipation (principal)
CPT/HCPCS: 74018

== ENCOUNTER → 2024-08-25 | Outpatient (CLI) | payer MEDICARE ==
[2024-08-25 19:37] LABS: Basophils # (A) 0.02 X 10*3/uL (0.00-0.10); Basophils % (A) 0.4 %; Eosinophils % (A) 5.4 %; HCT 47.8 % (39.6-50.0); HGB 15.6 g/dL (13.0-17.0); Lymphocytes # (A) 1.04 X 10*3/uL (0.90-5.00); Lymphocytes % (A) 18.8 %; MCH 31.2 pg (27.0-32.0); MCHC 32.6 g/dL (32.0-37.0); MCV 95.6 FL (80.0-97.0); Mean Platelet Volume 10.9 FL (9.5-12.2); Monocytes # (A) 0.43 X 10*3/uL (0.20-1.00); Monocytes % (A) 7.8 %; NRBC Per 100 WBC 0 X 10*3/uL (0.00-0.01); Neutrophils # (A) 3.72 X 10*3/uL (1.80-7.70); Neutrophils % (A) 67.2 %; Platelet Count 172 X 10*3/uL (140-440); RDW 12.4 % (11.5-14.5); WBC 5.53 X 10*3/uL (4.50-10.00)
[2024-08-25 20:09] LABS: ALT 35 U/L (10-49); AST 25 U/L (14-35); Albumin 3.8 g/dL (3.8-4.9); Albumin/Globulin Ratio 1.58 Ratio (1.60-3.17); Alkaline Phosphatase 77 U/L (41-126); Blood Urea Nitrogen 13.8 mg/dL (9.0-27.0); Calcium 8.8 mg/dL (8.7-10.3); Carbon Dioxide 25.6 mmol/L (21.6-31.8); Chloride 104 mmol/L (96-109); Globulin 2.4 g/dL (1.6-3.3); Glucose 113 mg/dL (70-110); Sodium 139 mmol/L (135-145); Total Bilirubin 0.5 mg/dL (0.3-1.2); Total Protein 6.2 g/dL (6.2-8.2)
== END | disposition home or self-care (01) ==
LOC: LABWHC1 13:18
PROVIDERS: ATTEND Internal Medicine Gastroenterology
DX: K51.30 Ulcerative (chronic) rectosigmoiditis without complications (principal)
CPT/HCPCS: 36415; 80053; 85025

== ENCOUNTER → 2024-10-24 | Outpatient (CLI) | payer MEDICARE ==
[2024-10-24 18:23] LABS: C Reactive Protein <0.30 mg/dL (0.00-0.80); Creatine Kinase 84 U/L (35-257); Rheumatoid Factor, Qnt <15 IU/mL (0-15)
== END | disposition home or self-care (01) ==
LOC: LABWHC1 13:19
PROVIDERS: ATTEND Psychiatry & Neurology Neurology
DX: R53.1 Weakness (principal)
CPT/HCPCS: 36415; 82550; 83036; 84207; 85652; 86038; 86140; 86235; 86334; 86431

== ENCOUNTER → 2024-12-29 | Outpatient (CLI) | payer MEDICARE ==
[2024-12-29 15:31] LABS: T4, Free (Free Thyroxine) 1.23 ng/dL (0.80-1.80)
== END | disposition home or self-care (01) ==
LOC: LABWHC1 10:19
PROVIDERS: ATTEND Internal Medicine
DX: E03.9 Hypothyroidism, unspecified (principal)
CPT/HCPCS: 36415; 84255; 84432; 84436; 84439; 84443; 84480; 84481; 84482

== ENCOUNTER → 2024-12-31 | Outpatient (CLI) | payer MEDICARE ==
[2024-12-31 10:31] LABS: Calcium 9.4 mg/dL (8.4-10.2)
== END | disposition home or self-care (01) ==
LOC: LABWHC1 09:07
PROVIDERS: ATTEND Internal Medicine
DX: E03.9 Hypothyroidism, unspecified (principal)
CPT/HCPCS: 36415; 82306; 82310; 82330; 82607; 82652; 83921; 83970

== ENCOUNTER 2025-01-08 20:38 | Emergency (ER) | payer MEDICARE ==
[2025-01-08 20:50] VITALS: TEMP 97.8
--- NOTE | 2025-01-08 21:16 | ED ---
Headache HPI - General Source: patient, RN notes reviewed Mode of arrival: ambulatory Limitations: no limitations <Jaclyn Feliciano - Last Filed: 01/08/25 21:12> <Elda - Last Filed: 01/09/25 02:59> - General Chief Complaint: Headache Stated Complaint: allergic reaction to medication Time Seen by Provider: 01/08/25 20:45 - History of Present Illness Initial Comments: Quick Note: This is a 69-year-old male who presents to the emergency department for a headache. Patient was bit by a tick and developed a bull's-eye rash on his abdomen around a week ago. He was then started on doxycycline about 6 days a go due to concern for Lyme disease. States that a couple of days ago he developed a headache and was concerned because he read online that doxycycline can cause swelling in the brain, which is his concern. (Jaclyn Feliciano) - Related Data Home Medications Medication Instructions Recorded Confirmed Ubidecarenone [Co Q-10] 100 mg PO DAILY 01/18/17 04/25/22 Vitamin B Complex 1 cap PO DAILY 01/18/17 04/25/22 Magnesium 200 mg PO DAILY 07/28/20 04/25/22 Cholecalciferol [Vitamin D3 (25 50 mcg PO DAILY 11/25/21 04/25/22 Mcg = 1000 Iu)] Entyvio 1 dose IV Q60D 11/25/21 04/25/22 Mesalamine [Canasa] 1,000 mg RECTAL DIRECTED PRN 04/25/22 04/25/22 Previous Rx's Medication Instructions Recorded predniSONE 10 mg PO DIRECTED 35 Days #98 11/04/23 tab Amoxicillin 500 mg PO Q8H 21 Days #63 capsule 01/09/25 Allergies Allergy/AdvReac Type Severity Reaction Status Date / Time erythromycin base AdvReac Severe Nausea, Verified 01/08/25 20:50 Flare up of colitis with blood in stool amoxicillin [From Augmentin] AdvReac Flare up Verified 01/08/25 20:50 of colitis-with blood in stool clavulanic acid AdvReac Flare up Verified 01/08/25 20:50 [From Augmentin] of colitis-with blood in stool NSAIDS (Non-Steroidal AdvReac Flare up Verified 01/08/25 20:50 Anti-Inflamma of colitis-with blood in stool Review of Systems ROS Other: All systems not noted in ROS Statement are negative. <Jaclyn Feliciano - Last Filed: 01/08/25 21:12> ROS Other: All systems not noted in ROS Statement are negative. <Elda Gurrola - Last Filed: 01/09/25 02:59> ROS Statement: Those systems with pertinent positive or pertinent negative responses have been documented in the HPI. Past Medical History Past Medical History: Asthma, Cancer, GERD/Reflux Additional Past Medical History / Comment(s): HX OF SHINGLES 2013, exercise induced Asthma, Migraines, Basal cell cancer on nose 2019, Rosacea, DIVERTICULOSIS, COLITIS w/ blood in stools. ? sleep apnea, seeing Dr in near future. gets up several times a night to use bathroom History of Any Multi-Drug Resistant Organisms: None Reported Past Surgical History: Hernia Repair, Orthopedic Surgery Additional Past Surgical History / Comment(s): LT KNEE SURGERY LIGAMENT REPAIR, DESTIN ING HERNIAS, EGD, COLONOSCOPY'S x 5 BONE SPUR REMOVED FROM RT GREAT TOE, LT ARM MUCSLE BX. Past Anesthesia/Blood Transfusion Reactions: Postoperative Nausea & Vomiting (PONV) Additional Past Anesthesia/Blood Transfusion Reaction / Comment(s): PONV in 1970's x1. Past Psychological History: No Psychological Hx Reported Smoking Status: Former smoker Past Alcohol Use History: None Reported Past Drug Use History: None Reported - Past Family History Brother(s) Family Medical History: Cancer Additional Family Medical History / Comment(s): SKIN & PROSTATE CANCER. Father Family Medical History: Dementia Additional Family Medical History / Comment(s): ALZHEIMERS Mother Family Medical History: Congestive Heart Failure (CHF) <Jaclyn Feliciano - Last Filed: 01/08/25 21:12> General Exam Limitations: no limitations <Jaclyn Feliciano - Last Filed: 01/08/25 21:12> - General Exam Comments Initial Comments: Visual Physical Exam Vital signs reviewed General: Well-appearing, nontoxic, no acute distress. Head: Normocephalic, atraumatic Eyes: PERRLA, EOMI ENT: Airway patent Chest: Nonlabored breathing Skin: No visual rash, normal skin tone Neuro: Alert and oriented 3 Musculoskeletal: No gross abnormalities (Jaclyn Feliciano) Course Vital Signs 01/08/25 01/08/25 20:47 23:42 Temperature 97.8 F Pulse Rate 81 81 Respiratory 16 16 Rate Blood Pressure 141/75 144/86 O2 Sat by Pulse 97 97 Oximetry Medical Decision Making <Jaclyn Feliciano - Last Filed: 01/08/25 21:12> - Lab Data Result diagrams: 01/08/25 23:41 01/08/25 23:41 <Elda Gurrola - Last Filed: 01/09/25 02:59> - Medical Decision Making I performed the QuickNote portion of this chart. Signed Jaclyn Feliciano PA-C. (Jaclyn Feliciano) Was pt. sent in by a medical professional or institution (, [facility], SENIOR BRANCH MANAGER, urgent care, hospital, or fci...) When possible be specific @ -[No] Did you speak to anyone other than the patient for history (EMS, parent, family, police, friend...)? What history was obtained from this source @ -[No] Did you review nursing and triage notes (agree or disagree)? Why? @ -[I reviewed nursing and triage notes] Were old charts reviewed (outside hosp., previous admission, EMS record, old EKG, old radiological studies, urgent care reports/EKG's, fci records)? Report findings @ -[Medical records reviewed] Differential Diagnosis (chest pain, altered mental status, abdominal pain women, abdominal pain men, vaginal bleeding, weakness, fever, dyspnea, syncope, headache, dizziness, GI bleed, back pain, seizure, CVA, palpatations, mental health, musculoskeletal)? @ -[not applicable] EKG interpreted by me (3pts min.). @ -[As above] X-rays interpreted by me (1pt min.). @ -[None done] CT interpreted by me (1pt min.). @ -Review CT brain I see no evidence of hemorrhage or mass effect U/S interpreted by me (1pt. min.). @ -[None done] What testing was considered but not performed or refused? (CT, X-rays, U/S, labs)? Why? @ -[None] What meds were considered but not given or refused? Why? @ -[None] Did you discuss the management of the patient with other professionals (professionals i.e. , PA, SENIOR BRANCH MANAGER, lab, RT, psych nurse, medical social worker, station baggage agent, teacher, field crop technical officer, classification case manager)? Give summary @ -[No] Was smoking cessation discussed for >3mins.? @ -[No] Was critical care preformed (if so, how long)? @ -[No] Were there social determinants of health that impacted care today? How? (Home lessness, low income, unemployed, alcoholism, drug addiction, transportation, low edu. Level, literacy, decrease access to med. care, assisted, rehab)? @ -[No] Was there de-escalation of care discussed even if they declined (Discuss DNR or withdrawal of care, Hospice)? @ -[No] What co-morbidities impacted this encounter? (DM, HTN, Smoking, COPD, CAD, Cancer, CVA, ARF, Chemo, Hep., AIDS, mental health diagnosis, sleep apnea, morbid obesity)? @ -[None] Was patient admitted / discharged? Hospital course, mention meds given and route, prescriptions, significant lab abnormalities, going to OR and other pertinent info. @ -[hospital course] this is a pleasant 69-year-old male presenting today for headache x 4 to 5 days. Recently started on doxycycline. Is concern for intracranial hypertension. No focal neurologic deficits on exam. Additionally patient states he is concerned the doxycycline may have caused his symptoms. So he is discontinuing it. Discussed with patient plan for CTA given he is greater than 6 hours out from the onset of headache, to rule out a subarachnoid hemorrhage assess for signs intracranial hypertension. He has no papilledema on exam. He politely declined any pain control out of concern for flaring up his ulcerative colitis. Patient will be switched to amoxicillin instead of doxycycline. Imaging reviewed and showed no acute process. Patient's labs reflected possible hemoconcentration otherwise no acute or emergent process. Discussed with patient findings, plan for discharge home amoxicillin he is agreeable Undiagnosed new problem with uncertain prognosis? @ -[No] Drug Therapy requiring intensive monitoring for toxicity (Heparin, Nitro, Insulin, Cardizem)? @ -[No] Were any procedures done? @ -[No] Diagnosis/symptom? @ -[default] Acute, or Chronic, or Acute on Chronic? @ -[default] Uncomplicated (without systemic symptoms) or Complicated (systemic symptoms)? @ -[default] Side effects of treatment? @ -[No] Exacerbation, Progression, or Severe Exacerbation? @ -[No] Poses a threat to life or bodily function? How? (Chest pain, USA, VT, pneumonia, PE, COPD, DKA, ARF, appy, cholecystitis, CVA, Diverticulitis, Homicidal, Suicidal, threat to staff... and all critical care pts) @ -[No] (Elda Gurrola) - Lab Data Lab Results 01/08/25 01/08/25 01/08/25 Range/Units 23:41 23:41 23:41 WBC 7.09 (4.50-10.00) 10*3/uL RBC 5.55 (4.40-5.60) 10*6/uL Hgb 17.8 H (13.0-17.0) g/dL Hct 52.0 H (39.6-50.0) % MCV 93.7 (80.0-97.0) fL MCH 32.1 H (27.0-32.0) pg MCHC 34.2 (32.0-37.0) g/dL Plt Count 191 (140-440) 10*3/uL MPV 10.9 (9.5-12.2) fL Immature Gran % (Auto) 0.3 % Neutrophils % 63.7 % Lymphocytes % 24.5 % Monocytes % 9.0 % Eosinophils % 2.1 % Basophils % 0.4 % Immature Gran # 0.02 (0.00-0.04) 10*3/uL Neutrophils # 4.51 (1.80-7.70) 10*3/uL Lymphocytes # 1.74 (0.90-5.00) 10*3/uL Monocytes # 0.64 (0.20-1.00) 10*3/uL Eosinophils # 0.15 (0.04-0.35) 10*3/uL Basophils # 0.03 (0.00-0.10) 10*3/uL PT 11.6 (10.0-12.5) sec INR 1.1 (<1.2) APTT 24.9 (22.0-30.0) sec Sodium 141 (137-145) mmol/L Potassium 4.9 (3.5-5.1) mmol/L Chloride 105 (98-107) mmol/L Carbon Dioxide 26 (22-30) mmol/L Anion Gap 10 mmol/L BUN 16 (9-20) mg/dL Creatinine 0.92 (0.66-1.25) mg/dL Est GFR (CKD-EPI)AfAm >90 (>60 ml/min/1.73 sqM) Est GFR (CKD-EPI)NonAf 84 (>60 ml/min/1.73 sqM) Glucose 82 (74-99) mg/dL Calcium 9.9 (8.4-10.2) mg/dL Total Bilirubin 0.7 (0.2-1.3) mg/dL AST 33 (17-59) U/L ALT 32 (4-49) U/L Alkaline Phosphatase 67 (38-126) U/L Total Protein 7.0 (6.3-8.2) g/dL Albumin 4.4 (3.5-5.0) g/dL Disposition <Jaclyn Feliciano - Last Filed: 01/08/25 21:12> Is patient prescribed a controlled substance at d/c from ED?: No <Elda Gurrola - Last Filed: 01/09/25 02:59> Clinical Impression: Headache Disposition: HOME SELF-CARE Condition: Good Instructions (If sedation given, give patient instructions): Acute Headache (ED) Additional Instructions: Every disease is a spectrum and a small chance still exists that a serious c ondition could develop, for this reason, please monitor yourself closely for new, changing or worsening symptoms, symptoms that persist beyond 48 hours, sudden worsening of your headache, changes in vision, numbness, weakness or slurred speech or other strokelike symptoms fever, inability to tolerate/keep down fluids or your medications, inability to follow up with outpatient providers as instructed and should you experience these symptoms or should you have any further concerns for your wellbeing please return to the ED or call 911 immediately. Please drink plenty of fluids and get plenty of rest. PLEASE call your primary care physician as soon as possible to arrange / discuss plan for followup appointment. Appointment in the next 1-3 days is strongly encouraged if possible. PLEASE let us know here before you leave if there is anything further we can do to be of any assistance. Take care and feel Better! Prescriptions: Amoxicillin 500 mg PO Q8H 21 Days #63 capsule Referrals: Brandi Nelson MD [Primary Care Provider] - 1-2 days
--- NOTE | 2025-01-08 22:08 | CT ---
EXAMINATION TYPE: CT brain wo con CT DLP: 1200.4 mGycm, Automated exposure control for dose reduction was used. DATE OF EXAM: 01/08/2025 9:50 PM COMPARISON: None. CLINICAL INDICATION:Male, 69 years old with history of Headache, Pt presents to ED for c/o headache. Pt was recently placed on doxycyline for lyme disease. TECHNIQUE: Brain: Multiple axial CT images of the brain were obtained without IV contrast. . Coronal and sagitta l reformats reviewed. FINDINGS: Brain: Extra-axial spaces: No abnormal extra-axial fluid collections. Anterior falx calcification. Ventricular system: Within normal limits Cerebral parenchyma: No acute intraparenchymal hemorrhage or mass effect. The tucker-white junction is well differentiated. Cerebellum: Unremarkable. Mass effect: No evidence of midline shift. Intracranial vasculature: Atherosclerotic calcifications of the intracranial vessels. Soft tissues: Normal. Calvarium/osseous structures: No depressed skull fracture. Paranasal sinuses and mastoid air cells: The mastoid air cells are clear. Right maxillary sinus subce ntimeter mucous retention cyst. The remaining paranasal sinuses are clear. Visualized orbits: Orbital contents are intact. IMPRESSION: No acute intracranial process. [facility], , 01/08/2025 10:06 PM
[2025-01-08 23:58] LABS: Basophils # (A) 0.03 10*3/uL (0.00-0.10); Basophils % (A) 0.4 %; Eosinophils # (A) 0.15 10*3/uL (0.04-0.35); Eosinophils % (A) 2.1 %; HGB 17.8 g/dL (13.0-17.0); Lymphocytes # (A) 1.74 10*3/uL (0.90-5.00); Lymphocytes % (A) 24.5 %; MCH 32.1 pg (27.0-32.0); MCHC 34.2 g/dL (32.0-37.0); MCV 93.7 fL (80.0-97.0); Mean Platelet Volume 10.9 fL (9.5-12.2); Monocytes # (A) 0.64 10*3/uL (0.20-1.00); Neutrophils # (A) 4.51 10*3/uL (1.80-7.70); Neutrophils % (A) 63.7 %; Platelet Count 191 10*3/uL (140-440); RBC 5.55 10*6/uL (4.40-5.60); RDW 12.7 % (11.5-14.5); WBC 7.09 10*3/uL (4.50-10.00)
[2025-01-09 00:11] LABS: ALT 32 U/L (4-49); AST 33 U/L (17-59); African American GFR (CKD) >90 (>60 ml/min/1.73 sqM); Albumin 4.4 g/dL (3.5-5.0); Alkaline Phosphatase 67 U/L (38-126); Anion Gap 10 mmol/L; Blood Urea Nitrogen 16 mg/dL (9-20); Calcium 9.9 mg/dL (8.4-10.2); Carbon Dioxide 26 mmol/L (22-30); Chloride 105 mmol/L (98-107); Glucose 82 mg/dL (74-99); Non-African American GFR(CKD) 84 (>60 ml/min/1.73 sqM); Potassium 4.9 mmol/L (3.5-5.1); Sodium 141 mmol/L (137-145); Total Bilirubin 0.7 mg/dL (0.2-1.3)
[2025-01-09 00:50] LABS: INR 1.1 (<1.2); Partial Thromboplastin Time 24.9 sec (22.0-30.0); Prothrombin Time 11.6 sec (10.0-12.5)
--- NOTE | 2025-01-09 02:00 | CT ---
EXAM: CT Angiography Head With Intravenous Contrast CLINICAL HISTORY: Reason: JEAN-BAPTISTE x12 HR, SAH vs Intracran. HTN? vs tension TECHNIQUE: Axial computed tomographic angiography images of the head with intravenous contrast. CTDI is 11.1 mGy and DLP is 516.4 mGy-cm. This CT exam was performed using one or more of the following dose reduction techniques: automated exposure control, adjustment of the mA and/or kV according to patient size, and/or use of iterative reconstruction technique. MIP reconstructed images were created and reviewed. COMPARISON: Noncontrast examination performed earlier FINDINGS: Right internal carotid artery: No acute findings. Intracranial segment is patent with no significant stenosis. No aneurysm. Right anterior cerebral artery: Unremarkable. No occlusion or significant stenosis. No aneurysm. Right middle cerebral artery: Unremarkable. No occlusion or significant stenosis. No aneurysm. Right posterior cerebral artery: Incidental origin of the right posterior cerebral artery via the right posterior communicating artery. The right posterior cerebral artery is patent. No occlusion or significant stenosis. No aneurysm. Right vertebral artery: Unremarkable as visualized. Left internal carotid artery: No acute findings. Intracranial segment is patent with no significant stenosis. No aneurysm. Left anterior cerebral artery: Unremarkable. No occlusion or significant stenosis. No aneurysm. Left middle cerebral artery: Unremarkable. No occlusion or significant stenosis. No aneurysm. Left posterior cerebral artery: Unremarkable. No occlusion or significant stenosis. No aneurysm. Left vertebral artery: Unremarkable as visualized. Basilar artery: Unremarkable. No occlusion or significant stenosis. No aneurysm. Brain: No abnormal parenchymal enhancement. IMPRESSION: Negative intracranial CTA examination. EXAM: CT Neck With Intravenous Contrast CLINICAL HISTORY: Reason: JEAN-BAPTISTE x12 HR, SAH vs Intracran. HTN? vs tension TECHNIQUE: Routine carotid CT protocol was performed with intravenous contrast. NASCET criteria using the distal ICAs for comparison were used for evaluation of stenoses. CTDI is 47.1 mGy and DLP is 562.6 mGy-cm. This CT exam was performed using one or more of the following dose reduction techniques: automated exposure control, adjustment of the mA and/or kV according to patient size, and/or use of iterative reconstruction technique. COMPARISON: None. FINDINGS: VASCULATURE: Right common carotid artery: Unremarkable. No occlusion or significant stenosis. No dissection. Right internal carotid artery: Unremarkable. Extracranial segment is patent with no occlusion or significant stenosis. No dissection. Right external carotid artery: Unremarkable. No occlusion. Right vertebral artery: Unremarkable. No occlusion or significant stenosis. No dissection. Left common carotid artery: Unremarkable. No occlusion or significant stenosis. No dissection. Left internal carotid artery: Unremarkable. Extracranial segment is patent with no occlusion or significant stenosis. No dissection. Left external carotid artery: Unremarkable. No occlusion. Left vertebral artery: Unremarkable. No occlusion or significant stenosis. No dissection. Brachiocephalic and subclavian arteries: The proximal great vessels are somewhat limited by prominent contrast in the adjacent venous structures. No obvious significant ostial stenosis. Aorta: The aortic arch is not included. NECK: Bones/joints: Unremarkable. No acute fracture. Soft tissues: Unremarkable. Lung apices: Clear. CAROTID STENOSIS REFERENCE USING NASCET CRITERIA: % ICA stenosis = (1 - narrowest ICA diameter/diameter of distal cervical ICA) x 100. Mild - <50% stenosis. Moderate - 50-69% stenosis. Severe - 70-94% stenosis. Near occlusion - 95-99% stenosis. Occluded - 100% stenosis. IMPRESSION: Negative cervical CTA examination. No 3D or MIP imaging of the cervical region available at the time of image interpretation.
[2025-01-09 03:34] VITALS: BP 146/83; PULSE 91; RESP 17
== END 2025-01-09 03:34 | disposition home or self-care (01) ==
LOC: EC 20:38
DX: R51.9 Headache, unspecified (principal); Z87.891 Personal history of nicotine dependence; Z88.0 Allergy status to penicillin; Z88.1 Allergy status to other antibiotic agents; Z88.6 Allergy status to analgesic agent
CPT/HCPCS: 36415; 70450; 70496; 70498; 80053; 85025; 85610; 85730; 99284